=== PATIENT | male | born 1965 | race Caucasian/White ===

== ENCOUNTER 2017-01-22 13:18 | Inpatient (IN) | payer SELFPAY ==
[2017-01-22] VITALS (15 sets, daily range): BP systolic 140–212; BP diastolic 67–117; PULSE 70–99; RESP 13–18; TEMP 97.8–98.5; O2SAT 93–100
[~2017-01-22] VITALS: Ht 180.3 cm; Wt 89.0 kg
[2017-01-22 13:58] LABS: AUTOMATED NEUTROPHIL # 9.2 TH/MM3 (1.8-7.7); BASOPHIL # 0.1 TH/MM3 (0-0.2); BASOPHIL % 0.5 % (0.0-2.0); HEMATOCRIT 49.2 % (39.0-51.0); LYMPH % 12.9 % (9.0-44.0); LYMPHOCYTE # 1.4 TH/MM3 (1.0-4.8); MEAN CELL VOLUME 92.4 FL (80.0-100.0); MEAN CORPUSCULAR HEMOGLOBIN 30.9 PG (27.0-34.0); MEAN CORPUSCULAR HGB CONC 33.5 % (32.0-36.0); MONO % 3.4 % (0.0-8.0); NEUT % 83.2 % (16.0-70.0); PLATELET COUNT 220 TH/MM3 (150-450); RED BLOOD COUNT 5.32 MIL/MM3 (4.50-5.90); RED CELL DISTRIBUTION WIDTH 12.9 % (11.6-17.2); WHITE BLOOD COUNT 11.1 TH/MM3 (4.0-11.0)
[2017-01-22 14:03] LABS: HEMO FLAGS DIFF FINAL
[2017-01-22 14:13] LABS: POTASSIUM 3.3 MEQ/L (3.5-5.1)
[2017-01-22] MEDS ORDERED: PROCHLORPERAZINE INJ 10 MG/2 ML VIAL IV PUSH ONE (14:15)
[2017-01-22] MEDS ORDERED: ONDANSETRON HCL 4 MG/2 ML VIAL IV PUSH ONE (14:15)
--- NOTE | 2017-01-22 14:39 | PD ---
HPI Chief Complaint: Headache Time Seen by Provider: 13:37 Travel History International Travel<30 days: No Contact w/Intl Traveler<30days: No Traveled to known affect area: No History of Present Illness HPI 51yo M presents to the ED with c/o bilateral frontal headache and NBNB vomiting and nausea for 2 days. Pt was working out in the sun 2 days ago and then had bilateral neck pain radiating to base of head and now to frontal region. Denies any fever, rash, chest pain, sob, focal weakness or numbness, new visual changes. Also states his blood pressure is elevated and he does not have a PMD so is not on any medication. Denies any trauma. PFSH Past Medical History Medical History: Denies Significant Hx Diminished Hearing: No Tetanus Vaccination: Unknown Past Surgical History Surgical History: No Previous Surgery Social History Alcohol Use: Yes (SOC) Tobacco Use: No Substance Use: No Allergies-Medications (Allergen,Severity, Reaction): Coded Allergies: No Known Allergies (Unverified , 01/22/17) Reported Meds & Prescriptions Reported Meds & Active Scripts Active No Active Prescriptions or Reported Medications Review of Systems Except as stated in HPI: all other systems reviewed are Neg Physical Exam Narrative GENERAL: 51yo M in mild distress. SKIN: Focused skin assessment warm/dry. HEAD: Atraumatic. Normocephalic. EYES: Pupils equal and round at 4mm bilaterally. EOMI. No scleral icterus. No injection or drainage. ENT: No nasal bleeding or discharge. Mucous membranes pink and moist. NECK: Trachea midline. No JVD. +TTP bilateral paraspinal muscles. No nuchal rigidity. CARDIOVASCULAR: Regular rate and rhythm. No murmur appreciated. RESPIRATORY: No accessory muscle use. Clear to auscultation. Breath sounds equal bilaterally. GASTROINTESTINAL: Abdomen soft, non-tender, nondistended. MUSCULOSKELETAL: No obvious deformities. No clubbing. No cyanosis. No edema. NEUROLOGICAL: Awake and alert. No obvious cranial nerve deficits. Motor grossly within normal limits. Normal speech. PSYCHIATRIC: Appropriate mood and affect; insight and judgment normal. Data Data Last Documented VS Vital Signs Date Time Temp Pulse Resp B/P Pulse Ox O2 Delivery O2 Flow Rate FiO2 01/22/17 15:09 77 16 194/104 99 Room Air 01/22/17 13:48 98.0 Orders Complete Blood Count With Diff (01/22/17 13:50) Basic Metabolic Panel (Bmp) (01/22/17 13:50) Ondansetron Inj (Zofran Inj) (01/22/17 14:15) Prochlorperazine Inj (Compazine Inj) (01/22/17 14:15) Ct Brain W/O Iv Contrast(Rout) (01/22/17 ) Nicardipine Inj (Cardene Inj) (01/22/17 15:15) Sodium Chlor 0.9% 1000 Ml Inj (Ns 1000 M (01/22/17 15:15) Prothrombin Time / Inr (Pt) (01/22/17 15:06) Act Partial Throm Time (Ptt) (01/22/17 15:06) Type And Screen (01/22/17 15:06) Cta Brain W Iv Contrast W 3d (01/22/17 ) Cta Neck W Iv Contrast W 3d (01/22/17 ) Patient Transfer (01/22/17 15:20) Labs Laboratory Tests Test 01/22/17 01/22/17 13:50 15:20 White Blood Count 11.1 TH/MM3 Red Blood Count 5.32 MIL/MM3 Hemoglobin 16.5 GM/DL Hematocrit 49.2 % Mean Corpuscular Volume 92.4 FL Mean Corpuscular Hemoglobin 30.9 PG Mean Corpuscular Hemoglobin 33.5 % Concent Red Cell Distribution Width 12.9 % Platelet Count 220 TH/MM3 Mean Platelet Volume 8.8 FL Neutrophils (%) (Auto) 83.2 % Lymphocytes (%) (Auto) 12.9 % Monocytes (%) (Auto) 3.4 % Eosinophils (%) (Auto) 0.0 % Basophils (%) (Auto) 0.5 % Neutrophils # (Auto) 9.2 TH/MM3 Lymphocytes # (Auto) 1.4 TH/MM3 Monocytes # (Auto) 0.4 TH/MM3 Eosinophils # (Auto) 0.0 TH/MM3 Basophils # (Auto) 0.1 TH/MM3 CBC Comment DIFF FINAL Differential Comment Prothrombin Time 11.2 SEC Prothromb Time International 1.0 RATIO Ratio Activated Partial 25.2 SEC Thromboplast Time Sodium Level 140 MEQ/L Potassium Level 3.3 MEQ/L Chloride Level 106 MEQ/L Carbon Dioxide Level 24.0 MEQ/L Anion Gap 10 MEQ/L Blood Urea Nitrogen 13 MG/DL Creatinine 1.10 MG/DL Estimat Glomerular Filtration 71 ML/MIN Rate Random Glucose 137 MG/DL Calcium Level 9.0 MG/DL Blood Type O POSITIVE Antibody Screen NEGATIVE MDM Medical Decision Making Medical Screen Exam Complete: Yes Emergency Medical Condition: Yes Differential Diagnosis Tension headache vs. migraine headache vs. hypertensive emergency vs. SAH Narrative Course 51yo M with new onset headache and vomiting for 2 days. Pt given compazine and zofran. CT brain showed moderate subarachnoid hemorrhage, tiny intraventricular hemorrhage and slight ventriculomegaly. Possibility of basilar tip aneurysm should be excluded. I discussed with Dr. Antonio who recommends immediate transfer to the [facility] and that the CTA can be done at the [facility]. Labs reviewed, WBC 11.1. H/H stable. K mildly decreased at 3.3. Coagulations normal. Type and screen added. Pt placed on nicardipine drip since repeat BP was 194/104. Discussed with spray gunner Dr. Garcia who accepted the patient to his service. Pt is being emergently transferred to [facility]. Pt is still AAOx3 with no focal neurologic deficits. I discussed with Dr. Hernandez who will be the spray gunner taking care of pt and he wants to get the CTA here if [facility] is not here at this moment. [facility] pulled up as we were placing him on portable monitor to go to CT so decision was made to transfer pt to [place] immediately since EVAC is here instead of going to [place]. BP is now 178/98, goal of systolic <150. Pt is still AAOx3, no focal neurologic deficits. Headache has improved but still there. Critical Care Narrative Aggregate critical care time was 60 minutes. Time to perform other separately billable procedures was not included in the critical care time. My time did not include minutes spent treating any other patients simultaneously or on activities that did not directly contribute to the patient's treatment. The services I provided to this patient were to treat and/or prevent clinically significant deterioration that could result in: cardiovascular collapse or . I provided critical care services requiring my management, as noted below: Chart data review, documentation time, medication orders and management, vital sign assessments/reviewing monitor data, ordering and reviewing lab tests, ordering and interpreting/reviewing x-rays and diagnostic studies, care of the patient and discussion of the patient with the admitting physicians. Diagnosis Primary Impression: Subarachnoid hemorrhage Admitting Information Admitting Physician Requests: Admit Scripts No Active Prescriptions or Reported Meds Brittaney Mirza DO Jan 22, 2017 14:39
--- NOTE | 2017-01-22 14:49 | RADRPT ---
EXAM DATE/TIME: 01/22/2017 14:21 [facility] COMPARISON: No previous studies available for comparison. INDICATIONS : Headache, vomiting, high blood pressure. RADIATION DOSE: 66.49 CTDIvol (mGy) MEDICAL HISTORY : None SURGICAL HISTORY : None. ENCOUNTER: Initial ACUITY: 2 days PAIN SCALE: 7/10 LOCATION: Bilateral frontal TECHNIQUE: Multiple contiguous axial images were obtained of the head. Using automated exposure control and adj ustment of the mA and/or kV according to patient size, radiation dose was kept as low as reasonably a chievable to obtain optimal diagnostic quality images. DICOM format image data is available electro nically for review and comparison. FINDINGS: There is subarachnoid hemorrhage which extends from the pre-pontine cistern caudally to the leve l of the cervicomedullary junction and cephaladly to bilateral anterior temporal, adjacent to the ant erior falx and partially into the sylvian fissure on the right side. There is mild mucoperiosteal thi ckening within the right maxillary sinus. There are no signs of acute infarction. Possibility of aneu rysm involving the basilar tip should be excluded. The slight ventriculomegaly is identified. There i s also tiny hemorrhage within bilateral occipital horns. CONCLUSION: Moderate subarachnoid hemorrhage, tiny intraventricular hemorrhage and slight ventric ulomegaly. Possibility of basilar tip aneurysm should be excluded. María Fraser MD on January 22, 2017 at 14:44 Board Certified Radiologist. This report was verified electronically.
[2017-01-22] MEDS ORDERED: niCARdipine INJ 25 MG in SODIUM CHLOR 0.9% 250 ML INJ 250 ML IV ONE (15:15)
[2017-01-22] MEDS ORDERED: SODIUM CHLOR 0.9% 1000 ML INJ 1,000 ML IV ONE (15:15)
[2017-01-22] MEDS: SODIUM CHLOR 0.9% 1000 ML INJ 1,000 ML IV SCH (15:20)
[2017-01-22 15:26] LABS: APTT (PATIENT) 25.2 SEC (24.3-30.1); PROTHROMBIN TIME - PATIENT 11.2 SEC (9.8-11.6)
[2017-01-22] MEDS ORDERED: MAGNESIUM SULFATE INJ 4 GM in SODIUM CHLORIDE 0.9% INJ 92 ML IV PRN (15:30)
[2017-01-22] MEDS ORDERED: MAGNESIUM OXIDE 400 MG TAB PO PRN (15:30)
[2017-01-22] MEDS ORDERED: CHLORHEXIDINE GLUCONATE 2 % 1 PACK (2 CLOTHS) TOP PRN (15:30)
[2017-01-22] MEDS ORDERED: POTASSIUM CHLOR 40 MEQ PREMIX 100 ML IV PRN ×2 (15:30)
[2017-01-22] MEDS ORDERED: BISACODYL 10 MG SUPP RECTAL PRN (15:30)
[2017-01-22] MEDS ORDERED: POTASSIUM CHLOR 20 MEQ PREMIX 100 ML IV PRN (15:30)
[2017-01-22] MEDS ORDERED: RESP: ALBUTEROL 2.5 MG/IPRATROPIUM 0.5 MG NEB (PRN) INH (15:30)
[2017-01-22] MEDS ORDERED: POTASSIUM PHOSPHATE MONOBASIC 500 MG TAB PO PRN (15:30)
[2017-01-22] MEDS ORDERED: SODIUM CHLORIDE 0.9% FLUSH 10 ML FLUSH IV FLUSH PRN (15:30)
[2017-01-22] MEDS ORDERED: MAGNESIUM HYDROXIDE SUSP 30 ML CUP PO PRN (15:30)
[2017-01-22] MEDS ORDERED: SENNOSIDES 8.6 MG TAB PO PRN (15:30)
[2017-01-22] MEDS ORDERED: MISCELLANEOUS NURSING INFORMATION XX SCH (15:30)
[2017-01-22] MEDS ORDERED: POTASSIUM PHOSPHATE MONOBASIC 500 MG TAB PO/TUBE PRN (15:30)
[2017-01-22] MEDS ORDERED: ONDANSETRON HCL 4 MG/2 ML VIAL IV PRN (15:30)
[2017-01-22] MEDS ORDERED: SODIUM PHOSPHATE INJ 30 MMOL in SODIUM CHLOR 0.9% 250 ML INJ 240 ML IV PRN (15:30)
[2017-01-22] MEDS ORDERED: LACTULOSE SYRUP 20 GM/30 ML CUP PO PRN (15:30)
[2017-01-22] MEDS ORDERED: POTASSIUM PHOSPHATE INJ 30 MMOL in SODIUM CHLOR 0.9% 250 ML INJ 250 ML IV PRN (15:30)
[2017-01-22] MEDS ORDERED: MAGNESIUM SULFATE INJ 2 GM in SODIUM CHLORIDE 0.9% INJ 96 ML IV PRN (15:30)
[2017-01-22 15:39] LABS: BLOOD, URINE NEG (NEG); GLUCOSE,URINE NEG (NEG); KETONE, URINE 15 mg/dL (NEG); NITRITE,URINE NEG (NEG); PH, URINE 7.5 (5.0-8.5)
[2017-01-22 15:45] LABS: COMMENT (UR) CULT NOT INDICATED; CULTURE IF INDICATED CULT NOT INDICATED; SQUAMOUS EPITHELIAL CELL URINE 0-5 /hpf (0-5); URINE COLOR YELLOW (YELLW/STRAW)
[2017-01-22] MEDS ORDERED: levETIRAcetam 1000 MG INJ 100 ML IV ONE (15:45)
[2017-01-22] MEDS ORDERED: LABETALOL HCL 100 MG/20 ML VIAL IV PUSH STA (15:50)
[2017-01-22] MEDS ORDERED: LABETALOL HCL 100 MG/20 ML VIAL IV PUSH PRN (16:00)
[2017-01-22] MEDS ORDERED: IOHEXOL 350 MG/ML 10 ML VIAL (for RAD DIAG) IV ONE (17:19)
--- NOTE | 2017-01-22 17:34 | PD.CONS ---
HPI Service Critical Care Medicine Consult Requested By Primary Care Physician No Primary Care Physician History of Present Illness HPI 51yo M presents to the ED with c/o bilateral frontal headache and NBNB vomiting and nausea for 2 days. Pt was working out in the sun 2 days ago and then had bilateral neck pain radiating to base of head and now to frontal region. Denies any fever, rash, chest pain, sob, focal weakness or numbness, new visual changes. Also states his blood pressure is elevated and he does not have a PMD so is not on any medication. Denies any trauma. Patient was evaluated in the ER at [facility]. Head CT revealed moderate subarachnoid hemorrhage with minimal intraventricular blood. Dr. Antonio from neurosurgery was contacted by ER physician as well as critical care. Dr. Antonio asked ER to transfer patient to the main hospital to be admitted by critical care medicine and he would see patient as consult. Patient was accepted for admission by critical care service. Patient had been started on a Cardene drip at [facility] and was transferred to [facility] where I evaluated the patient immediately following his arrival. At the time of my evaluation patient stated his headache was down to around 3 out of 10 in intensity and was much better since his arrival to the ER. He denied any nausea denies any visual disturbance any focal weakness or paresthesias. Denied any speech disturbance. I had ordered labetalol 20 mg IV stat prior to patient's transfer from [facility] and then every 2 hourly when necessary to lower blood pressure. I spoke with Dr. Antonio following patient's arrival to [facility] and informed him that patient was headed for CTA for further evaluation of subarachnoid hemorrhage. History PFSH Past Medical History Medical History: HTN Diminished Hearing: No Tetanus Vaccination: Unknown Past Surgical History Surgical History: No Previous Surgery Social History Alcohol Use: Yes (SOC) Tobacco Use: No Substance Use: No Allergies-Medications Allergies-Medications (Allergen,Severity, Reaction): Coded Allergies: No Known Allergies (Unverified , 01/22/17) Reported Meds & Prescriptions Reported Meds & Active Scripts Active No Active Prescriptions or Reported Medications ROS Review of Systems Except as stated in HPI: all other systems reviewed are Neg Physical Exam Vital Signs Vital Signs Date Time Temp Pulse Resp B/P Pulse Ox O2 Delivery O2 Flow Rate FiO2 01/22/17 16:34 96 16 154/93 98 Room Air 01/22/17 16:21 93 149/93 01/22/17 16:17 90 16 161/96 99 Room Air 01/22/17 16:15 97 16 157/98 99 Room Air 01/22/17 16:03 95 16 176/96 95 Room Air 01/22/17 15:54 88 16 178/98 97 Room Air 01/22/17 15:45 97 16 178/102 100 Room Air 01/22/17 15:41 96 16 173/96 100 Room Air 01/22/17 15:28 84 16 212/111 98 Room Air 01/22/17 15:09 77 16 194/104 99 Room Air 01/22/17 13:48 98.0 99 16 162/117 99 01/22/17 13:22 98.0 99 16 162/117 99 Room Air Physical Exam Narrative GENERAL: 51yo M in mild distress. SKIN: Focused skin assessment warm/dry. HEAD: Atraumatic. Normocephalic. EYES: Pupils equal and round at 4mm bilaterally. EOMI. No scleral icterus. No injection or drainage. ENT: No nasal bleeding or discharge. Mucous membranes pink and moist. NECK: Trachea midline. No JVD. No nuchal rigidity. CARDIOVASCULAR: Regular rate and rhythm. No murmur appreciated. RESPIRATORY: No accessory muscle use. Clear to auscultation. Breath sounds equal bilaterally. GASTROINTESTINAL: Abdomen soft, non-tender, nondistended. MUSCULOSKELETAL: No obvious deformities. No clubbing. No cyanosis. No edema. NEUROLOGICAL: Awake and alert. Pupils seem enemas bilaterally reacting actively to light. No obvious cranial nerve deficits. Motor grossly within normal limits. Normal speech. PSYCHIATRIC: Appropriate mood and affect; insight and judgment normal. Laboratory Laboratory Tests Test 01/22/17 01/22/17 13:50 15:30 White Blood Count 11.1 Red Blood Count 5.32 Hemoglobin 16.5 Hematocrit 49.2 Mean Corpuscular Volume 92.4 Mean Corpuscular Hemoglobin 30.9 Mean Corpuscular Hemoglobin 33.5 Concent Red Cell Distribution Width 12.9 Platelet Count 220 Mean Platelet Volume 8.8 Neutrophils (%) (Auto) 83.2 Lymphocytes (%) (Auto) 12.9 Monocytes (%) (Auto) 3.4 Eosinophils (%) (Auto) 0.0 Basophils (%) (Auto) 0.5 Neutrophils # (Auto) 9.2 Lymphocytes # (Auto) 1.4 Monocytes # (Auto) 0.4 Eosinophils # (Auto) 0.0 Basophils # (Auto) 0.1 CBC Comment DIFF FINAL Differential Comment Prothrombin Time 11.2 Prothromb Time International 1.0 Ratio Activated Partial 25.2 Thromboplast Time Sodium Level 140 Potassium Level 3.3 Chloride Level 106 Carbon Dioxide Level 24.0 Anion Gap 10 Blood Urea Nitrogen 13 Creatinine 1.10 Estimat Glomerular Filtration 71 Rate Random Glucose 137 Calcium Level 9.0 Urine Color YELLOW Urine Turbidity CLEAR Urine pH 7.5 Urine Specific Sears 1.016 Urine Protein TRACE Urine Glucose (UA) NEG Urine Ketones 15 Urine Occult Blood NEG Urine Nitrite NEG Urine Bilirubin NEG Urine Leukocyte Esterase NEG Urine Squamous Epithelial 0-5 Cells Microscopic Urinalysis Comment CULT NOT INDICATED Result Diagram: 01/22/17 1350 01/22/17 1350 Imaging Last Impressions Head CT 01/22/17 0000 Signed Impressions: Service Date/Time: January 14:21 - CONCLUSION: Moderate subarachnoid hemorrhage, tiny intraventricular hemorrhage and slight ventriculomegaly. Possibility of basilar tip aneurysm should be excluded. María Fraser MD Assessment and Plan Assessment and Plan 51-year-old male with: Subarachnoid hemorrhage Hypertensive emergency Plan: Neuro: Follow neuro checks. Follow-up CTA brain to evaluate for aneurysm. Neurosurgery consulted and aware regarding patient's arrival to [facility]. Continue nimodipine. Titrate Cardene to maintain SBP less than 140 mmHg. neurosurgery to decide further management following review of CTA. Cardiovascular: IV hydration, nicardipine drip, labetalol when necessary to keep SBP less than 140 mmHg Pulmonary: Supplemental O2 as needed. GI/liver: Nothing by mouth until evaluated by neurosurgery. Renal/: IV hydration, strict intake output, monitor and replete electrolytes, follow BUN/creatinine ID: No indication for antibiotics at this time Heme: Follow CBC and coags. Endocrine: Watch for hyperglycemia, SSI for glycemic control if needed Prophylaxis: PPI/SCDs. No subcutaneous heparin in view of subarachnoid hemorrhage till cleared by neurosurgery. D/W Dr. Antonio, D/W Dr. Mirza, D/W BACKEND TESTER Condition critical. Patient at high risk for deterioration from subarachnoid hemorrhage. Time spent on critical care excluding procedures 50 minutes Marques Hernandez MD Jan 22, 2017 17:34
--- NOTE | 2017-01-22 17:42 | HHI.HP ---
HPI Service Critical Care Medicine Primary Care Physician No Primary Care Physician Admission Diagnosis Subarachonid hemorrhage Diagnosis: Travel History International Travel<30 Days: No Contact w/Intl Traveler <30 Da: No Traveled to Known Affected Are: No History of Present Illness Primary Care Physician No Primary Care Physician History of Present Illness HPI 51yo M presents to the ED with c/o bilateral frontal headache and NBNB vomiting and nausea for 2 days. Pt was working out in the sun 2 days ago and then had bilateral neck pain radiating to base of head and now to frontal region. Denies any fever, rash, chest pain, sob, focal weakness or numbness, new visual changes. Also states his blood pressure is elevated and he does not have a PMD so is not on any medication. Denies any trauma. Patient was evaluated in the ER at [place]. Head CT revealed moderate subarachnoid hemorrhage with minimal intraventricular blood. Dr. Antonio from neurosurgery was contacted by ER physician as well as critical care. Dr. Antonio asked ER to transfer patient to the main hospital to be admitted by critical care medicine and he would see patient as consult. Patient was accepted for admission by critical care service. Patient had been started on a Cardene drip at [place] ER and was transferred to [facility] where I evaluated the patient immediately following his arrival. At the time of my evaluation patient stated his headache was down to around 3 out of 10 in intensity and was much better since his arrival to the ER. He denied any nausea denies any visual disturbance any focal weakness or paresthesias. Denied any speech disturbance. I had ordered labetalol 20 mg IV stat prior to patient's transfer from [place] and then every 2 hourly when necessary to lower blood pressure. I spoke with Dr. Antonio following patient's arrival to [facility] and informed him that patient was headed for CTA for further evaluation of subarachnoid hemorrhage. History PFS Past Medical History Medical History: HTN Diminished Hearing: No Tetanus Vaccination: Unknown Past Surgical History Surgical History: No Previous Surgery Social History Alcohol Use: Yes (SOC) Tobacco Use: No Substance Use: No Allergies-Medications Allergies-Medications (Allergen,Severity, Reaction): Coded Allergies: No Known Allergies (Unverified , 01/22/17) Reported Meds & Prescriptions Reported Meds & Active Scripts Active No Active Prescriptions or Reported Medications ROS Review of Systems Except as stated in HPI: all other systems reviewed are Neg Physical Exam Physical Exam Vital Signs Vital Signs Date Time Temp Pulse Resp B/P Pulse Ox O2 Delivery O2 Flow Rate FiO2 01/22/17 16:34 96 16 154/93 98 Room Air 01/22/17 16:21 93 149/93 01/22/17 16:17 90 16 161/96 99 Room Air 01/22/17 16:15 97 16 157/98 99 Room Air 01/22/17 16:03 95 16 176/96 95 Room Air 01/22/17 15:54 88 16 178/98 97 Room Air 01/22/17 15:45 97 16 178/102 100 Room Air 01/22/17 15:41 96 16 173/96 100 Room Air 01/22/17 15:28 84 16 212/111 98 Room Air 01/22/17 15:09 77 16 194/104 99 Room Air 01/22/17 13:48 98.0 99 16 162/117 99 01/22/17 13:22 98.0 99 16 162/117 99 Room Air Physical Exam Narrative GENERAL: 51yo M in mild distress. SKIN: Focused skin assessment warm/dry. HEAD: Atraumatic. Normocephalic. EYES: Pupils equal and round at 4mm bilaterally. EOMI. No scleral icterus. No injection or drainage. ENT: No nasal bleeding or discharge. Mucous membranes pink and moist. NECK: Trachea midline. No JVD. No nuchal rigidity. CARDIOVASCULAR: Regular rate and rhythm. No murmur appreciated. RESPIRATORY: No accessory muscle use. Clear to auscultation. Breath sounds equal bilaterally. GASTROINTESTINAL: Abdomen soft, non-tender, nondistended. MUSCULOSKELETAL: No obvious deformities. No clubbing. No cyanosis. No edema. NEUROLOGICAL: Awake and alert. Pupils seem enemas bilaterally reacting actively to light. No obvious cranial nerve deficits. Motor grossly within normal limits. Normal speech. PSYCHIATRIC: Appropriate mood and affect; insight and judgment normal. Laboratory Laboratory Tests Test 01/22/17 01/22/17 13:50 15:30 White Blood Count 11.1 Red Blood Count 5.32 Hemoglobin 16.5 Hematocrit 49.2 Mean Corpuscular Volume 92.4 Mean Corpuscular Hemoglobin 30.9 Mean Corpuscular Hemoglobin 33.5 Concent Red Cell Distribution Width 12.9 Platelet Count 220 Mean Platelet Volume 8.8 Neutrophils (%) (Auto) 83.2 Lymphocytes (%) (Auto) 12.9 Monocytes (%) (Auto) 3.4 Eosinophils (%) (Auto) 0.0 Basophils (%) (Auto) 0.5 Neutrophils # (Auto) 9.2 Lymphocytes # (Auto) 1.4 Monocytes # (Auto) 0.4 Eosinophils # (Auto) 0.0 Basophils # (Auto) 0.1 CBC Comment DIFF FINAL Differential Comment Prothrombin Time 11.2 Prothromb Time International 1.0 Ratio Activated Partial 25.2 Thromboplast Time Sodium Level 140 Potassium Level 3.3 Chloride Level 106 Carbon Dioxide Level 24.0 Anion Gap 10 Blood Urea Nitrogen 13 Creatinine 1.10 Estimat Glomerular Filtration 71 Rate Random Glucose 137 Calcium Level 9.0 Urine Color YELLOW Urine Turbidity CLEAR Urine pH 7.5 Urine Specific Gooding 1.016 Urine Protein TRACE Urine Glucose (UA) NEG Urine Ketones 15 Urine Occult Blood NEG Urine Nitrite NEG Urine Bilirubin NEG Urine Leukocyte Esterase NEG Urine Squamous Epithelial 0-5 Cells Microscopic Urinalysis Comment CULT NOT INDICATED Result Diagram: 01/22/17 1350 01/22/17 1350 Imaging Last Impressions Head CT 01/22/17 0000 Signed Impressions: Service Date/Time: January 14:21 - CONCLUSION: Moderate subarachnoid hemorrhage, tiny intraventricular hemorrhage and slight ventriculomegaly. Possibility of basilar tip aneurysm should be excluded. María Fraser MD Assessment and Plan Assessment and Plan 51-year-old male with: Subarachnoid hemorrhage Hypertensive emergency Plan: Neuro: Follow neuro checks. Follow-up CTA brain to evaluate for aneurysm. Neurosurgery consulted and aware regarding patient's arrival to [facility]. Continue nimodipine. Titrate Cardene to maintain SBP less than 140 mmHg. neurosurgery to decide further management following review of CTA. Cardiovascular: IV hydration, nicardipine drip, labetalol when necessary to keep SBP less than 140 mmHg Pulmonary: Supplemental O2 as needed. GI/liver: Nothing by mouth until evaluated by neurosurgery. Renal/: IV hydration, strict intake output, monitor and replete electrolytes, follow BUN/creatinine ID: No indication for antibiotics at this time Heme: Follow CBC and coags. Endocrine: Watch for hyperglycemia, SSI for glycemic control if needed Prophylaxis: PPI/SCDs. No subcutaneous heparin in view of subarachnoid hemorrhage till cleared by neurosurgery. D/W Dr. Antonio, D/W Dr. Mirza, D/W CLIENT TECHNICAL SPECIALIST Condition critical. Patient at high risk for deterioration from subarachnoid hemorrhage. Time spent on critical care excluding procedures 50 minutes Marques Hernandez MD Jan 22, 2017 17:42
[2017-01-22] MEDS: niMODipine 30 MG CAP PO SCH (18:02)
[2017-01-22] MEDS: POTASSIUM CHLOR 20 MEQ PREMIX 100 ML IV PRN (18:02)
[2017-01-22] MEDS: niCARdipine INJ 25 MG in SODIUM CHLOR 0.9% 250 ML INJ 250 ML IV SCH ×3 (18:03→22:25)
--- NOTE | 2017-01-22 18:10 | RADRPT ---
EXAM DATE/TIME: 01/22/2017 17:02 This report includes an Addendum and supersedes previous reports for this exam. This report includes an Addendum and supersedes previous reports for this exam. [facility] COMPARISON: CT BRAIN W/O CONTRAST, January 22, 2017, 14:21. INDICATIONS : Evaluate for CVA. IV CONTRAST: 75 cc Omnipaque 350 (iohexol) IV RADIATION DOSE: 16.86 CTDIvol (mGy) ; Combined studies MEDICAL HISTORY : None SURGICAL HISTORY : None. ENCOUNTER: Initial ACUITY: 3 days PAIN SCALE: 6/10 LOCATION: Bilateral neck region. TECHNIQUE: Volumetric scanning was performed using a multi-row detector CT scanner. The data was post processed with a variety of visualization algorithms including full volume maximum intensity projection, multi -planar sliding thin slab reformation, curved planar reformation, and surface rendering techniques. Using automated exposure control and adjustment of the mA and/or kV according to patient size, radiat ion dose was kept as low as reasonably achievable to obtain optimal diagnostic quality images. DICO M format image data is available electronically for review and comparison. FINDINGS: There is excellent visualization of the major intracranial arteries out to the second-order branch ve ssels. There is no evidence for aneurysm, vessel truncation or stenosis, and no evidence for vascula r malformation. CONCLUSION: Unremarkable study without definite aneurysm. María Fraser MD on January 22, 2017 at 18:05 Board Certified Radiologist. This report was verified electronically. 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 This measures 3.0 x 2.7 mm.. Segundo Mcneil Jr., MD on January 23, 2017 at 10:02 Board Certified Radiologist. This report was verified electronically. ADDENDUM: There is a typographical error in the above addendum. 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 Segundo Mcneil Jr., MD on January 23, 2017 at 11:11 Board Certified Radiologist. This report was verified electronically.
[2017-01-22] MEDS: MORPHINE SULFATE 8 MG/ML INJ IV PUSH PRN ×2 (18:28→22:26)
--- NOTE | 2017-01-22 18:28 | RADRPT ---
EXAM DATE/TIME: 01/22/2017 17:02 [facility] COMPARISON: No previous studies available for comparison. INDICATIONS : Stiff neck. Evaluate for CVA IV CONTRAST: 75 cc Omnipaque 350 (iohexol) IV RADIATION DOSE: 16.58 CTDIvol (mGy) ; Combined studies MEDICAL HISTORY : None SURGICAL HISTORY : None. ENCOUNTER: Initial ACUITY: 3 days PAIN SCALE: 7/10 LOCATION: Bilateral cranial Elevated flow velocities and ICA/CCA ratios have been found to correlate with increased degrees of vessel stenosis, calculated as percentage of diameter relative to a normal segment of distal ICA/CCA. TECHNIQUE: Volumetric scanning was performed using a multirow detector CT scanner. The data was post processed with a variety of visualization algorithms including full-volume maximum intensity projection, multip lanar sliding thin-slab reformation, curved-planar reformation, and surface-rendering techniques. Us ing automated exposure control and adjustment of the mA and/or kV according to patient size, radiatio n dose was kept as low as reasonably achievable to obtain optimal diagnostic quality images. DICOM f ormat image data is available electronically for review and comparison. FINDINGS: AORTIC ARCH: There is a three-vessel origin of the great vessels from the aorta. No evidence of ostial narrowing. RIGHT CAROTID: The common carotid artery is intact. The carotid bulb has a normal configuration without ulceration o r narrowing. The internal carotid artery lumen is smooth without stenosis. The external carotid gregorio ry is intact. LEFT CAROTID: The common carotid artery is intact. The carotid bulb has a normal configuration without ulceration or narrowing. The internal carotid artery lumen is smooth without stenosis. The external carotid ar lacie is intact. VERTEBRALS: The vertebral arteries have a symmetric diameter. No stenotic lesions are seen. CONCLUSION: Normal examination. María Fraser MD on January 22, 2017 at 18:25 Board Certified Radiologist. This report was verified electronically.
--- NOTE | 2017-01-22 18:41 | PD.CONS ---
HPI Service NS Consult Requested By Dr Hernandez Reason for Consult subarachnpoid hemorrhage Primary Care Physician No Primary Care Physician History of Present Illness this is a 51yo male presents to the ED with c/o bilateral frontal headache and vomiting and nauseas for 2 days. He was working out in the sun 2 days ago and then had bilateral neck pain radiating to base of head and now to frontal region. Denies any fever, rash, chest pain,focal weakness or numbness His blood pressure is elevated. Denies any trauma. He was evaluated in the ER at [place]. Head CT revealed moderate subarachnoid hemorrhage with minimal intraventricular blood. neurosurgery consultation was requested Review of Systems Constitutional: DENIES: Diaphoretic episodes, Fatigue, Fever, Weight gain, Weight loss, Chills, Dizziness, Change in appetite, Night Sweats Endocrine: DENIES: Heat/cold intolerance, Polydipsia, Polyuria, Polyphagia Eyes: DENIES: Blurred vision, Diplopia, Eye inflammation, Eye pain, Vision loss , Photosensitivity, Double Vision Ears, nose, mouth, throat: DENIES: Tinnitus, Hearing loss, Vertigo, Nasal discharge, Oral lesions, Throat pain, Hoarseness, Ear Pain, Running Nose, Epistaxis, Sinus Pain, Toothache, Odynophagia Cardiovascular: DENIES: Chest pain, Palpitations, Syncope, Dyspnea on Exertion , PND, Lower Extremity Edema, Orthopnea, Claudication Gastrointestinal: COMPLAINS OF: Nausea, Vomiting, DENIES: Abdominal pain, Black stools, Bloody stools, Constipation, Diarrhea, Difficulty Swallowing, Anorexia Genitourinary: DENIES: Sexual dysfunction, Urinary frequency, Urinary incontinence, Urgency, Hematuria, Dysuria, Nocturia, Penile Discharge, Testicular Pain, Testicular Swelling Musculoskeletal: DENIES: Joint pain, Muscle aches, Stiffness, Joint Swelling, Back pain, Neck pain Integumentary: DENIES: Abnormal pigmentation, Nail changes, Pruritus, Rash Hematologic/lymphatic: DENIES: Bruising, Lymphadenopathy Neurologic: COMPLAINS OF: Headache, DENIES: Abnormal gait, Localized weakness , Paresthesias, Seizures, Speech Problems, Tremor, Poor Balance Psychiatric: DENIES: Anxiety, Confusion, Mood changes, Depression, Hallucinations, Agitation, Suicidal Ideation, Homicidal Ideation, Delusions Past Family Social History Allergies: Coded Allergies: No Known Allergies (Unverified , 01/22/17) Past Medical History Hypertension Past Surgical History no Reported Medications no Active Ordered Medications Current Medications Ondansetron HCl (Zofran Inj) 4 mg ONCE ONCE IV PUSH Last administered on 14:07; Start 01/22/17 at 14:15; Stop 01/22/17 at 14:16; Status DC Prochlorperazine Edisylate 10 mg 10 mg ONCE ONCE IV PUSH Last administered on 01/22/17 14:07; Start 01/22/17 at 14:15; Stop 01/22/17 at 14:16; Status DC Nicardipine HCl 25 mg/Sodium Chloride 260 ml @ 0 mls/hr TITRATE ONCE IV Last administered on 01/22/17 15:25; Start 01/22/17 at 15:15; Stop 01/22/17 at 15:16 ; Status DC Sodium Chloride 1,000 ml @ 999 mls/hr BOLUS ONCE IV Last administered on 01/22 15:10; Start 01/22/17 at 15:15; Stop 01/22/17 at 16:15; Status DC Levetriacetam (Keppra 1000 Mg Inj) 100 ml @ 400 mls/hr BOLUS ONCE IV Last administered on 01/22/17 15:49; Start 01/22/17 at 15:45; Stop 01/22/17 at 15:59 ; Status DC Magnesium Oxide 800 mg 800 mg UNSCH PRN PO For Magnesium 1.2 - 1.6 mg/dL; Start 01/22/17 at 15:30 Magnesium Sulfate 4 gm/Sodium Chloride 100 ml @ 50 mls/hr UNSCH PRN IV For Magnesium 0.9 - 1.1 mg/dL; Start 01/22/17 at 15:30 Magnesium Sulfate 2 gm/Sodium Chloride 100 ml @ 50 mls/hr UNSCH PRN IV For Magnesium 1.2 - 1.6 mg/dL; Start 01/22/17 at 15:30 Potassium Chloride 100 ml @ 50 mls/hr Q2H PRN IV For Potassium 2.8 - 3.2 mEq/L ; Start 01/22/17 at 15:30 Potassium Chloride 100 ml @ 50 mls/hr Q2H PRN IV For Potassium 3.3 - 3.5 mEq/ L Last administered on 01/22/17 18:02; Start 01/22/17 at 15:30 Potassium Chloride 100 ml @ 50 mls/hr Q2H PRN IV For Potassium 2.8 - 3.2 mEq/L ; Start 01/22/17 at 15:30 Potassium Chloride (KCl 40 Meq Premix Inj) 100 ml @ 25 mls/hr UNSCH PRN IV For Potassium 3.3 - 3.5 mEq/L; Start 01/22/17 at 15:30 Potassium Phosphate (K-Phos) 2,000 mg Q4H PRN PO For Phosphorus < 2.5 mg/dL; Start 01/22/17 at 15:30 Potassium Phosphate 2000 mg 2,000 mg UNSCH PRN PO/TUBE SEE LABEL COMMENTS; Start 01/22/17 at 15:30 Potassium Phosphate 30 mmol/ Sodium Chloride 260 ml @ 42 mls/hr UNSCH PRN IV SEE LABEL COMMENTS; Start 01/22/17 at 15:30 Sodium Phosphate 30 mmol/Sodium Chloride 250 ml @ 42 mls/hr UNSCH PRN IV For Phosphorus < 2.5 mg/dL; Start 01/22/17 at 15:30 Sodium Chloride (NS 1000 ml Inj) 1,000 ml @ 84 mls/hr [id number] IV Last administered on 01/22/17 15:20; Start 01/22/17 at 15:20 Sodium Chloride (NS Flush) 2 ml UNSCH PRN IV FLUSH FLUSH AFTER USING IV ACCESS ; Start 01/22/17 at 15:30 Sodium Chloride (NS Flush) 2 ml BID IV FLUSH ; Start 01/22/17 at 21:00 Pantoprazole Sodium (Protonix Inj) 40 mg DAILY IV ; Start 01/23/17 at 09:00 Ondansetron HCl (Zofran Inj) 4 mg Q6H PRN IV NAUSEA OR VOMITING Last administered on 01/22/17 18:03; Start 01/22/17 at 15:30 Albuterol/ Ipratropium (Duoneb Neb) 1 ampule Q2HR NEB PRN INH WHEEZING; Start 01/22/17 at 15:30 Miscellaneous Information 1 [id number] ; Start 01/22/17 at 15:30 Chlorhexidine Gluconate (Chlorhexidine 2% Cloth) 3 pack Taper DAILY@04 TOP ; Start 01/23/17 at 04:00; Stop 01/19/18 at 03:59 Chlorhexidine Gluconate (Chlorhexidine 2% Cloth) 3 pack UNSCH PRN TOP HYGIENIC CARE; Start 01/22/17 at 15:30 Senna/Docusate Sodium (Shanel-Colace) 1 tab BID PO ; Start 01/22/17 at 21:00 Magnesium Hydroxide (Milk Of Magnesia Liq) 30 ml Q12H PRN PO MILD - MODERATE CONSTIPATION; Start 01/22/17 at 15:30 Sennosides (Senokot) 17.2 mg Q12H PRN PO MODERATE - SEVERE CONSTIPATION; Start 01/22/17 at 15:30 Bisacodyl (Dulcolax Supp) 10 mg DAILY PRN RECTAL SEVERE CONSITIPATION; Start at 15:30 Lactulose 30 ml 30 ml DAILY PRN PO SEVERE CONSITIPATION; Start 01/22/17 at 15: 30 Nicardipine HCl/ Sodium Chloride (Cardene Inj/NS 250 ml Inj) 260 ml @ 0 mls/hr TITRATE IV Last administered on 01/22/17 18:03; Start 01/22/17 at 15:30 Nimodipine (Nimotop) 60 mg Q4HR PO Last administered on 01/22/17 18:02; Start 01/22/17 at 16:00 Labetalol HCl (Trandate Inj) 20 mg ONCE STAT IV PUSH Last administered on 01/22 16:09; Start 01/22/17 at 15:50; Stop 01/22/17 at 15:57; Status DC Labetalol HCl (Trandate Inj) 20 mg Q4H PRN IV PUSH SBP greater than 160mm Hg; Start 01/22/17 at 16:00 Iohexol (Omnipaque 350 Inj) 75 ml STK-MED ONCE IV Last administered on 17:19; Start 01/22/17 at 17:19; Stop 01/22/17 at 17:20; Status DC Morphine Sulfate (Morphine Inj) 4 mg Q4HR PRN IV PUSH pain scale 5-10 Last administered on 01/22/17 18:28; Start 01/22/17 at 18:00 Family History no hx of aneurysms Social History Alcohol Use: Yes Tobacco Use: No Substance Use: No Physical Exam Vital Signs Vital Signs Date Time Temp Pulse Resp B/P Pulse Ox O2 Delivery O2 Flow Rate FiO2 01/22/17 18:00 97.8 98 13 167/88 99 01/22/17 18:00 98 01/22/17 16:34 96 16 154/93 98 Room Air 01/22/17 16:21 93 149/93 01/22/17 16:17 90 16 161/96 99 Room Air 01/22/17 16:15 97 16 157/98 99 Room Air 01/22/17 16:03 95 16 176/96 95 Room Air 01/22/17 15:54 88 16 178/98 97 Room Air 01/22/17 15:45 97 16 178/102 100 Room Air 01/22/17 15:41 96 16 173/96 100 Room Air 01/22/17 15:28 84 16 212/111 98 Room Air 01/22/17 15:09 77 16 194/104 99 Room Air 01/22/17 13:48 98.0 99 16 162/117 99 01/22/17 13:22 98.0 99 16 162/117 99 Room Air Physical Exam The patient is alert, awake and oriented to time, place and person. Speech is fluent. Higher cognitive functions are normal. Cranial nerve examination demonstrates the pupils to be equal, round, and reactive to light. Extra-ocular movements are intact. Facial motor and sensory function are normal and symmetrical. Gross hearing is intact, bilaterally. The uvula is midline and elevates symmetrically with the soft palate. Sternocleidomastoid and trapezius muscles have normal and symmetrical strength. Other cranial nerves are intact. Neck is soft and supple. Cervical spine has a full range of motion in anterior flexion, extension, lateral bending, and rotation without pain. There is no tenderness to palpation to the spinous processes or paraspinal muscles. Muscle testing reveals normal bulk and tone overall without rigidity, spasticity , fasciculations, or atrophy. Muscle strength is 5/5 in all muscle groups of both upper extremities including deltoid, biceps, triceps, brachioradialis, wrist extension and gas line installer. In the lower extremities, strength is 5/5 in both iliopsoas, quadriceps, hamstrings, plantar flexion, dorsiflexion, and extensor hallicus longus. Sensory examination is intact to light touch and sharp/dull discrimination in both the upper and lower extremities, symmetrically. Deep tendon reflexes are 2+ and symmetrical in the biceps, triceps, and brachioradialis, bilaterally, in the upper extremities. In the lower extremities , the patellar and Achilles are 2+, bilaterally. There is a bilateral plantar flexion response. Hoffmanns sign is negative. There is no clonus or other abnormal reflexes noted. Cerebellar examination is intact to [id number] test, rapid rhythmic alternating motion. There is no dysmetria, dysdiadochokinesia, truncal ataxia, or tremor. Laboratory Laboratory Tests Test 01/22/17 01/22/17 01/22/17 01/22/17 13:50 15:20 15:30 17:15 White Blood Count 11.1 Red Blood Count 5.32 Hemoglobin 16.5 Hematocrit 49.2 Mean Corpuscular Volume 92.4 Mean Corpuscular Hemoglobin 30.9 Mean Corpuscular Hemoglobin 33.5 Concent Red Cell Distribution Width 12.9 Platelet Count 220 Mean Platelet Volume 8.8 Neutrophils (%) (Auto) 83.2 Lymphocytes (%) (Auto) 12.9 Monocytes (%) (Auto) 3.4 Eosinophils (%) (Auto) 0.0 Basophils (%) (Auto) 0.5 Neutrophils # (Auto) 9.2 Lymphocytes # (Auto) 1.4 Monocytes # (Auto) 0.4 Eosinophils # (Auto) 0.0 Basophils # (Auto) 0.1 CBC Comment DIFF FINAL Differential Comment Prothrombin Time 11.2 Prothromb Time International 1.0 Ratio Activated Partial 25.2 Thromboplast Time Sodium Level 140 Potassium Level 3.3 Chloride Level 106 Carbon Dioxide Level 24.0 Anion Gap 10 Blood Urea Nitrogen 13 Creatinine 1.10 Estimat Glomerular Filtration 71 Rate Random Glucose 137 Calcium Level 9.0 Blood Type O POSITIVE O POSITIVE Antibody Screen NEGATIVE Urine Color YELLOW Urine Turbidity CLEAR Urine pH 7.5 Urine Specific [place] 1.016 Urine Protein TRACE Urine Glucose (UA) NEG Urine Ketones 15 Urine Occult Blood NEG Urine Nitrite NEG Urine Bilirubin NEG Urine Leukocyte Esterase NEG Urine Squamous Epithelial 0-5 Cells Microscopic Urinalysis Comment CULT NOT INDICATED Result Diagram: 01/22/17 1350 01/22/17 1350 Imaging Last Impressions Head CTA 01/22/17 0000 Signed Impressions: Service Date/Time: January 17:02 - CONCLUSION: Unremarkable study without definite aneurysm. María Fraser MD Head CT 01/22/17 0000 Signed Impressions: Service Date/Time: January 14:21 - CONCLUSION: Moderate subarachnoid hemorrhage, tiny intraventricular hemorrhage and slight ventriculomegaly. Possibility of basilar tip aneurysm should be excluded. María Fraser MD Assessment and Plan Assessment and Plan [facility] Randall Franks grade 1, Esteban grade 3 Attending Statement Status post subarachnoid hemorrhage. Strict BP control. Neuro checks q 1 hrs. Nimotop. Recommend cerebral angiography Pulmonary. aggressive pulmonary toilette, nasotracheal suction, and breathing treatments with nebulizers. PT and OT evaluation Nutrition. Oral diet Renal. Gentle IV fluid resuscitation Avoid nephrotoxins, monitor closely urine output, BUN and creatinine Endocrine. Monitor serial Acu checks and SSI as needed in detail ID monitor for signs of infection Protonix for stress ulcer prophylaxis Christophe hose and SCD's for DVT prophylaxis Nick Antonio MD Jan 22, 2017 18:41
[2017-01-22] MEDS: SODIUM CHLORIDE 0.9% FLUSH 10 ML FLUSH IV FLUSH SCH (21:00)
[2017-01-23] VITALS (11 sets, daily range): BP systolic 115–148; BP diastolic 59–78; PULSE 68–95; RESP 13–20; TEMP 98–98.8; O2SAT 93–99
[2017-01-23] MEDS: niCARdipine INJ 25 MG in SODIUM CHLOR 0.9% 250 ML INJ 250 ML IV SCH ×6 (00:02→19:32)
[2017-01-23] MEDS: DOCUSATE SODIUM 50 MG/SENNA 8.6 MG TAB PO SCH ×2 (01:04→08:15)
[2017-01-23] MEDS: niMODipine 30 MG CAP PO SCH ×7 (01:04→19:27)
[2017-01-23] MEDS: MORPHINE SULFATE 8 MG/ML INJ IV PUSH PRN ×3 (03:00→18:45)
[2017-01-23] MEDS: SODIUM CHLOR 0.9% 1000 ML INJ 1,000 ML IV SCH ×2 (03:15→06:12)
[2017-01-23] MEDS ORDERED: CHLORHEXIDINE GLUCONATE 2 % 1 PACK (2 CLOTHS) TOP SCH (04:00)
[2017-01-23 06:46] LABS: HEMATOCRIT 45.2 % (39.0-51.0); MEAN CELL VOLUME 90.7 FL (80.0-100.0); MEAN CORPUSCULAR HEMOGLOBIN 31.9 PG (27.0-34.0); MEAN CORPUSCULAR HGB CONC 35.2 % (32.0-36.0); PLATELET COUNT 169 TH/MM3 (150-450); RED BLOOD COUNT 4.98 MIL/MM3 (4.50-5.90); REVIEW FLAG FINAL; WHITE BLOOD COUNT 13.9 TH/MM3 (4.0-11.0)
[2017-01-23 07:07] LABS: POTASSIUM 3.5 MEQ/L (3.5-5.1)
[2017-01-23] MEDS: POTASSIUM CHLOR 20 MEQ PREMIX 100 ML IV PRN (08:15)
[2017-01-23] MEDS: SODIUM CHLORIDE 0.9% FLUSH 10 ML FLUSH IV FLUSH SCH ×2 (08:15→19:28)
[2017-01-23] MEDS ORDERED: PANTOPRAZOLE SODIUM 40 MG VIAL IV SCH (09:00)
--- NOTE | 2017-01-23 09:28 | HHI.CCPN ---
Subjective Remarks/Hospital Course 01/22: 51yo M presents to the ED with c/o bilateral frontal headache and NBNB vomiting and nausea for 2 days. Pt was working out in the sun 2 days ago and then had bilateral neck pain radiating to base of head and now to frontal region. Denies any fever, rash, chest pain, sob, focal weakness or numbness, new visual changes. Also states his blood pressure is elevated and he does not have a PMD so is not on any medication. Denies any trauma. Patient was evaluated in the ER at [place]. Head CT revealed moderate subarachnoid hemorrhage with minimal intraventricular blood. Dr. Antonio from neurosurgery was contacted by ER physician as well as critical care. Dr. Antonio asked ER to transfer patient to the main hospital to be admitted by critical care medicine and he would see patient as consult. Patient was accepted for admission by critical care service. Patient had been started on a Cardene drip at [place] [facility] and was transferred to [facility] where I evaluated the patient immediately following his arrival. At the time of my evaluation patient stated his headache was down to around 3 out of 10 in intensity and was much better since his arrival to the ER. He denied any nausea denies any visual disturbance any focal weakness or paresthesias. Denied any speech disturbance. I had ordered labetalol 20 mg IV stat prior to patient's transfer from [place] and then every 2 hourly when necessary to lower blood pressure. I spoke with Dr. Antonio following patient's arrival to [facility] and informed him that patient was headed for CTA for further evaluation of subarachnoid hemorrhage. 01/23: Resting comfortably in bed. Complains of minimal headache about 3 out of 10 in intensity. Received morphine with good response. Has remained off nicardipine drip for a few hours and his blood pressure is in the 120 systolic range currently. Objective Vital Signs Date Time Temp Pulse Resp B/P Pulse Ox O2 Delivery O2 Flow Rate FiO2 01/23/17 07:00 99 Room Air 01/23/17 06:00 70 01/23/17 04:00 98.6 20 115/59 Intake and Output 01/22/17 01/22/17 01/23/17 08:00 16:00 00:00 Intake Total 1100 ml 689 ml Output Total 350 ml Balance 1100 ml 339 ml Result Diagram: 01/23/17 0556 01/23/17 0556 Imaging Last Impressions Head CT 01/22/17 0000 Signed Impressions: Service Date/Time: January 14:21 - CONCLUSION: Moderate subarachnoid hemorrhage, tiny intraventricular hemorrhage and slight ventriculomegaly. Possibility of basilar tip aneurysm should be excluded. María Fraser MD Objective Remarks Narrative GENERAL: 51yo M laying in bed in no acute distress. SKIN: Focused skin assessment warm/dry. HEAD: Atraumatic. Normocephalic. EYES: Pupils equal and round at 4mm bilaterally. EOMI. No scleral icterus. No injection or drainage. ENT: No nasal bleeding or discharge. Mucous membranes pink and moist. NECK: Trachea midline. No JVD. No nuchal rigidity. CARDIOVASCULAR: Regular rate and rhythm. No murmur appreciated. RESPIRATORY: No accessory muscle use. Clear to auscultation. Breath sounds equal bilaterally. GASTROINTESTINAL: Abdomen soft, non-tender, nondistended. MUSCULOSKELETAL: No obvious deformities. No clubbing. No cyanosis. No edema. NEUROLOGICAL: Awake and alert. Pupils seem enemas bilaterally reacting actively to light. No obvious cranial nerve deficits. Normal speech. Power 5 x 5 bilaterally in both upper and lower extremity's. Gait not tested as TCDs were in progress. PSYCHIATRIC: Appropriate mood and affect; insight and judgment normal. A/P Assessment and Plan 51-year-old male with: Subarachnoid hemorrhage Hypertensive emergency Plan: Neuro: Follow neuro checks. CTA brain/neck negative for aneurysm. Follow-up cerebral angiogram to evaluate for aneurysm. Neurosurgery consulted and following. Continue nimodipine. Titrate Cardene to maintain SBP less than 140 mmHg. neurosurgery to decide further management. Discussed with Dr. Antonio. Received 1 dose of Keppra yesterday. Defer anticonvulsant to neurosurgery Cardiovascular: IV hydration, nicardipine drip, labetalol when necessary to keep SBP less than 140 mmHg Pulmonary: Supplemental O2 as needed. GI/liver: Advance by mouth when okay with neurosurgery. Renal/: IV hydration, strict intake output, monitor and replete electrolytes, follow BUN/creatinine ID: No indication for antibiotics at this time Heme: Follow CBC and coags. Endocrine: Watch for hyperglycemia, SSI for glycemic control if needed Prophylaxis: PPI/SCDs. No subcutaneous heparin in view of subarachnoid hemorrhage till cleared by neurosurgery. D/W Dr. Antonio, D/W SNELLER HAND Condition critical. Patient at high risk for deterioration from subarachnoid hemorrhage. Time spent on critical care excluding procedures 30 minutes Marques Hernandez MD Jan 23, 2017 09:28
[2017-01-23] MEDS ORDERED: INFLUENZA VIRUS VACCINE (QUADRIVALENT) 0.5 ML SYR IM ONE (10:00)
[2017-01-23] MEDS ORDERED: VERAPAMIL HCL 5 MG/2 ML VIAL ONE (10:27)
[2017-01-23] MEDS ORDERED: fentaNYL CITRATE 250 MCG/5 ML AMP ONE (10:41)
[2017-01-23] MEDS ORDERED: ceFAZolin 2 GM PREMIX 50 ML ONE (11:01)
--- NOTE | 2017-01-23 12:37 | PD.RAD ---
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 Not an ideal candidate for non-stent assisted coiling. See PACS Report for procedural detail/treatment Antoine Sumner MD Jan 23, 2017 12:37
[2017-01-23] MEDS ORDERED: DO NOT ADM ANY ANTICOAGULANT DRUGS PRN (13:06)
[2017-01-23] MEDS ORDERED: *MEPERIDINE 25 MG INJ VIAL PERIprocedural Use ONLY ONE (13:20)
[2017-01-23] MEDS ORDERED: IODIXANOL 320 MG/ML 50 ML VIAL (for RAD SPEC) I-ARTERIAL ONE (13:30)
[2017-01-23] MEDS ORDERED: *LABETALOL HCL 100 MG/20 ML VIAL PERIprocedural Use ONLY ONE (13:36)
--- NOTE | 2017-01-23 16:37 | RADRPT ---
EXAM DATE/TIME: 01/23/2017 09:59 [facility] COMPARISON: CTA BRAIN W 3D RECON, January 22, 2017, 17:02. INDICATIONS : Patient is in need of a cerebral angiogram for evaluation of aneurysm. Patient has acute subarachnoid hemorrhage. Patient complains of a headache but otherwise is neurologically intact. MEDICAL HISTORY : History of HTN. SURGICAL HISTORY : N/A ENCOUNTER: Initial ACUITY: 2 days PAIN SCORE: 3/10 LOCATION: head FLUORO TIME: 2.8 minutes IMAGE SERIES: 4 ACCESS SITE: Right Femoral artery CONTRAST: 45 cc Visipaque (iodixanol) MEDICATION(S): 1.) 2 g cefazolin (Ancef) IV Anesthesia and pain control was provided by the Anesthesia department. PROCEDURE : 1. Ultrasound-guided puncture of the access site. 2. Anesthesia provided by the anesthesiology department. Please see their report separately.. 3. Angiography of the right internal carotid artery The risks, benefits and alternatives to the procedure were explained and verbal and written consent w as obtained. The site was prepped in sterile fashion. Full sterile technique was used, including ca p, mask, sterile gloves and gown and a large sterile sheet. Hand hygiene and 2% chlorhexidine and/or betadine/alcohol prep was utilized per protocol for cutaneous antisepsis. The skin and subcutaneous tissues were infiltrated with local anesthetic solution. With ultrasound and fluoroscopic guidance the right common femoral artery was punctured and a vascula r sheath was placed. The right internal carotid artery was selected and a cerebral angiogram performe d from this level. These images included 3-D spin as well as static planar images. 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 The aneurysm measures 4 x 3 x 2 m m and shows a small lobule extending from the dome. The dome to neck ratio is essentially one. It was felt this patient is not a good candidate for non-stent assisted coil embolization. I spoke with Dr. Antonio concerning the findings. The puncture site was closed with manual pressure and hemostasis was obtained. The patient tolerated the procedure well and there were no complications. Anesthesiology was present and supplied services. See their report separately. 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 The dome to neck ratio is not favorable for non-stent assisted emboliz ation. I spoke with Dr. Antonio. He requested consultation to Dr. Martinez in [place]. I have reached out to Dr. Martinez but have not been successful at reaching him to this point. Segundo Mcneil Jr., MD on January 23, 2017 at 16:12 Board Certified Radiologist. This report was verified electronically.
--- NOTE | 2017-01-23 17:18 | HHI.NSPN ---
(Monica Campbell) Note Status Status: Progress Note (Monica Campbell) Interval History Interval History This is a 51yo male presents to the ED with c/o bilateral frontal headache and vomiting and nauseas for 2 days. He was working out in the sun 2 days ago and then had bilateral neck pain radiating to base of head and now to frontal region. Denies any fever, rash, chest pain,focal weakness or numbness His blood pressure is elevated. Denies any trauma. He was evaluated in the ER at [place]. Head CT revealed moderate subarachnoid hemorrhage with minimal intraventricular blood. neurosurgery consultation was requested 01/23: pt seen and evaluated during am rounds, reports MARQUEZ's better this am. CTA Head was negative, awaiting cerebral angiography. denies focal weakness. (Monica Campbell) Labs, Micro, & Vital Signs Results Date Time Temp Pulse Resp B/P Pulse Ox O2 Delivery O2 Flow Rate FiO2 01/23/17 16:00 95 01/23/17 16:00 98.8 82 13 133/74 99 01/23/17 14:00 85 01/23/17 13:45 68 15 145/59 97 Nasal Cannula 4 01/23/17 13:30 87 15 172/63 96 Nasal Cannula 4 01/23/17 13:15 94 16 184/67 94 Nasal Cannula 4 01/23/17 13:09 98.1 90 16 93 Nasal Cannula 4 117/50 01/23/17 12:00 82 01/23/17 10:00 80 01/23/17 08:00 74 01/23/17 08:00 98.5 71 14 124/78 96 01/23/17 07:00 99 Room Air 01/23/17 06:00 70 01/23/17 04:00 98.6 68 20 115/59 93 01/23/17 04:00 68 01/23/17 02:00 70 01/23/17 00:00 70 01/23/17 00:00 98.0 70 20 121/67 94 01/22/17 22:00 70 01/22/17 20:00 72 01/22/17 20:00 98.5 72 18 140/67 93 01/22/17 20:00 Room Air 01/22/17 18:00 97.8 98 13 167/88 99 01/22/17 18:00 Room Air 01/22/17 18:00 98 01/23/17 06:59 Intake Total 3785 ml Output Total 700 ml Balance 3085 ml Constitutional Vital Signs Date Time Temp Pulse Resp B/P Pulse Ox O2 Delivery O2 Flow Rate FiO2 01/23/17 16:00 95 01/23/17 16:00 98.8 82 13 133/74 99 01/23/17 14:00 85 01/23/17 13:45 68 15 145/59 97 Nasal Cannula 4 01/23/17 13:30 87 15 172/63 96 Nasal Cannula 4 01/23/17 13:15 94 16 184/67 94 Nasal Cannula 4 01/23/17 13:09 98.1 90 16 93 Nasal Cannula 4 117/50 01/23/17 12:00 82 01/23/17 10:00 80 01/23/17 08:00 74 01/23/17 08:00 98.5 71 14 124/78 96 01/23/17 07:00 99 Room Air 01/23/17 06:00 70 01/23/17 04:00 98.6 68 20 115/59 93 01/23/17 04:00 68 01/23/17 02:00 70 01/23/17 00:00 70 01/23/17 00:00 98.0 70 20 121/67 94 01/22/17 22:00 70 01/22/17 20:00 72 01/22/17 20:00 98.5 72 18 140/67 93 01/22/17 20:00 Room Air 01/22/17 18:00 97.8 98 13 167/88 99 01/22/17 18:00 Room Air 01/22/17 18:00 98 01/23/17 06:59 Intake Total 3785 ml Output Total 700 ml Balance 3085 ml (Monica Campbell) Review of Systems/Exam Exam Mr. Black is alert, awake and oriented to time, place and person. Speech is fluent. Cranial nerve examination demonstrates the pupils to be equal, round, and reactive to light. Extra-ocular movements are intact. Facial motor and sensory function are normal and symmetrical. Gross hearing is intact, bilaterally. Muscle strength is 5/5 in all muscle groups of both upper and lower extremities. Sensory examination is intact to light touch in both the upper and lower extremities, symmetrically. bilateral plantar flexion response. There is no clonus or other abnormal reflexes noted. Cerebellar examination is intact to [id number] test. (Monica Campbell) Exam Mr. Black is alert, awake and oriented to time, place and person. Speech is fluent. Cranial nerve examination demonstrates the pupils to be equal, round, and reactive to light. Extra-ocular movements are intact. Facial motor and sensory function are normal and symmetrical. Gross hearing is intact, bilaterally. Muscle strength is 5/5 in all muscle groups of both upper and lower extremities. Sensory examination is intact to light touch in both the upper and lower extremities, symmetrically. bilateral plantar flexion response. There is no clonus or other abnormal reflexes noted. Cerebellar examination is intact (Nick Antonio MD) Medications Current Medications Current Medications Medications (Trade) Dose Ordered Sig/Marleni Route PRN Reason Start Time Stop Time Status Last Admin Dose Admin Magnesium Oxide 800 mg 800 mg UNSCH PRN PO For Magnesium 1.2 - 1.6 mg/dL 01/22/17 15:30 Magnesium Sulfate 4 gm/Sodium Chloride 100 ml @ 50 mls/hr UNSCH PRN IV For Magnesium 0.9 - 1.1 mg/dL 01/22/17 15:30 Magnesium Sulfate 2 gm/Sodium Chloride 100 ml @ 50 mls/hr UNSCH PRN IV For Magnesium 1.2 - 1.6 mg/dL 01/22/17 15:30 Potassium Chloride 100 ml @ 50 mls/hr Q2H PRN IV For Potassium 2.8 - 3.2 mEq/L 01/22/17 15:30 Potassium Chloride 100 ml @ 50 mls/hr Q2H PRN IV For Potassium 3.3 - 3.5 mEq/L 01/22/17 15:30 01/23/17 08:15 Potassium Chloride 100 ml @ 50 mls/hr Q2H PRN IV For Potassium 2.8 - 3.2 mEq/L 01/22/17 15:30 Potassium Chloride (KCl 40 Meq Premix Inj) 100 ml @ 25 mls/hr UNSCH PRN IV For Potassium 3.3 - 3.5 mEq/L 01/22/17 15:30 Potassium Phosphate (K-Phos) 2,000 mg Q4H PRN PO For Phosphorus < 2.5 mg/dL 01/22/17 15:30 Potassium Phosphate 2000 mg 2,000 mg UNSCH PRN PO/TUBE SEE LABEL COMMENTS 01/22/17 15:30 Potassium Phosphate 30 mmol/ Sodium Chloride 260 ml @ 42 mls/hr UNSCH PRN IV SEE LABEL COMMENTS 01/22/17 15:30 Sodium Phosphate 30 mmol/Sodium Chloride 250 ml @ 42 mls/hr UNSCH PRN IV For Phosphorus < 2.5 mg/dL 01/22/17 15:30 Sodium Chloride (NS 1000 ml Inj) 1,000 ml @ 84 mls/hr [id number] IV 01/22/17 15:20 01/23/17 06:12 Sodium Chloride (NS Flush) 2 ml UNSCH PRN IV FLUSH FLUSH AFTER USING IV ACCESS 01/22/17 15:30 Sodium Chloride (NS Flush) 2 ml BID IV FLUSH 01/22/17 21:00 01/22/17 21:00 Pantoprazole Sodium (Protonix Inj) 40 mg DAILY IV 01/23/17 09:00 01/23/17 08:15 Ondansetron HCl (Zofran Inj) 4 mg Q6H PRN IV NAUSEA OR VOMITING 01/22/17 15:30 01/22/17 18:03 Miscellaneous Information 1 [id number] XX 01/22/17 15:30 01/22/17 15:30 Chlorhexidine Gluconate (Chlorhexidine 2% Cloth) 3 pack Taper DAILY@04 TOP 01/23/17 04:00 01/19/18 03:59 01/23/17 04:00 Chlorhexidine Gluconate (Chlorhexidine 2% Cloth) 3 pack UNSCH PRN TOP HYGIENIC CARE 01/22/17 15:30 Senna/Docusate Sodium (Shanel-Colace) 1 tab BID PO 01/22/17 21:00 01/23/17 08:15 Magnesium Hydroxide (Milk Of Magnesia Liq) 30 ml Q12H PRN PO MILD - MODERATE CONSTIPATION 01/22/17 15:30 Sennosides (Senokot) 17.2 mg Q12H PRN PO MODERATE - SEVERE CONSTIPATION 01/22/17 15:30 Bisacodyl (Dulcolax Supp) 10 mg DAILY PRN RECTAL SEVERE CONSITIPATION 01/22/17 15:30 Lactulose 30 ml 30 ml DAILY PRN PO SEVERE CONSITIPATION 01/22/17 15:30 Nicardipine HCl/ Sodium Chloride (Cardene Inj/NS 250 ml Inj) 260 ml @ 0 mls/hr TITRATE IV 01/22/17 15:30 01/23/17 15:09 Nimodipine (Nimotop) 60 mg Q4HR PO 01/22/17 16:00 01/23/17 08:15 Labetalol HCl (Trandate Inj) 20 mg Q4H PRN IV PUSH SBP greater than 160mm Hg 01/22/17 16:00 Morphine Sulfate (Morphine Inj) 4 mg Q4HR PRN IV PUSH pain scale 5-10 01/22/17 18:00 01/23/17 15:09 Miscellaneous Information ALL NURSING DEPARTME... UNSCH PRN .XX SEE LABEL COMMENTS 01/23/17 13:06 01/24/17 13:05 (Monica Campbell) Medical Decision Making MDM Remarks 71 y/o male presented with c/o MARQUEZ's, CT Brain shows SAH with mild IVH, suspected for ruptured cerebral aneurysm, CTA Head negative for aneurysms or AVMs (Monica Campbell) Plan Plan Remarks awaiting cerebral angiogram today, cont neuro checks in ISC, critical care mgt, nonchemical dvt prophylaxis in view of ICH (Monica Campbell) Attending Statement Continue neuro checks in a serial fashion. Pulmonary. Continue aggressive pulmonary toilette, nasotracheal suction, and breathing treatments with nebulizers. PT and OT evaluation Nutrition. NPO after midnoght Renal. Continue monitor closely urine output, BUN and creatinine Endocrine. Continue Monitor serial Acu checks and SSI as needed in detail ID Continue monitor for signs of infection Continue Protonix for stress ulcer prophylaxis Continue Christophe hose and SCD's for DVT prophylaxis The exam, history, and the medical decision-making described in the above note were completed with the assistance of the mid-level provider. I reviewed and agree with the findings presented. I attest that I had a [id number] encounter with the patient on the same day, and personally performed and documented my assessment and findings in the medical record. (Nick Antonio MD) Monica Campbell Jan 23, 2017 17:18 Nick Antonio MD Jan 26, 2017 12:41
[2017-01-23] MEDS ORDERED: HYDROmorphone HCL PF 1 MG/ML VIAL IV PUSH ONE (20:15)
--- NOTE | 2017-01-24 07:19 | RADRPT ---
EXAM DATE/TIME: 01/23/2017 07:40 [facility] COMPARISON: CTA BRAIN W 3D RECON, January 22, 2017, 17:02. ANGIOGRAM, CEREBRAL WO ARCH, January 23, 2017, 9:59. INDICATIONS : Subarachnoid hemorrhage. MEDICAL HISTORY : Hypertension. SURGICAL HISTORY : Brain coil. ENCOUNTER: Initial ACUITY: 1 day PAIN SCORE: 5/10 LOCATION: Bilateral cranial Current Exam: Jan 23, 2017 Right: 1.4 Left: Unable to obtain. Right: 1.1 Left: Unable to obtain. FINDINGS: Examination performed at bedside. Real-time ultrasound with the assistance of color and spectral Dop pler was utilized to evaluate the intracerebral circulation. Time-averaged maximal velocities are ca lculated in cm/s. Limited exam obtained due to emergent transfer to angiographic suite for cerebral angiography with po ssible quality. Normal right-sided Lindegard M. Huber ratios with no findings to suggest significant vasospasm in the right cervical circulation. CONCLUSION: No significant right-sided cerebral vasospasm. Left cerebral circulation and not evaluated due to urgent transfer for cerebral angiography. Xavier Valencia MD on January 24, 2017 at 7:08 Board Certified Radiologist. This report was verified electronically.
== END 2017-01-23 20:30 | disposition short-term general hospital (02) | DRG 65 ==
LOC: PHED 13:18 → PHEDA 15:21 → N03B 16:35
PROVIDERS: ADMIT Internal Medicine Critical Care Medicine; ATTEND Internal Medicine Critical Care Medicine
PROC: B316YZZ Fluoroscopy of Right Internal Carotid Artery using Other Contrast (ICD-10-PCS; principal; 2017-01-22)
DX: I60.9 Nontraumatic subarachnoid hemorrhage, unspecified (principal); I16.1 Hypertensive emergency; I67.1 Cerebral aneurysm, nonruptured; I61.9 Nontraumatic intracerebral hemorrhage, unspecified; I10 Essential (primary) hypertension; K21.9 Gastro-esophageal reflux disease without esophagitis; Z87.891 Personal history of nicotine dependence
CPT/HCPCS: 36224; 70450; 70496; 70498; 76376; 76937; 80048; 81001; 85025; 85027; 85610; 85730; 86850; 86900; 86901; 87641; 93886; 96374; 96375; C1769; C1887; C1894; C9113; J0690; J0780; J1170; J1953; J2175; J2270; J2405; J3010; J3480; J7030; J7050; Q9967

== ENCOUNTER 2017-02-10 10:55 | Inpatient (IN) | payer SELFPAY ==
[~2017-02-10] VITALS: Ht 177.8 cm; Wt 79.5 kg
[2017-02-10 18:50] VITALS: BP 145/99; PULSE 107; RESP 18; TEMP 99.1; O2SAT 96
[2017-02-10] MEDS ORDERED: LACTULOSE SYRUP 20 GM/30 ML CUP PO PRN (19:15)
[2017-02-10] MEDS ORDERED: MISCELLANEOUS NURSING INFORMATION XX SCH (19:15)
[2017-02-10] MEDS ORDERED: RESP: ALBUTEROL 2.5 MG/3 ML NEB (PRN) INH (19:15)
[2017-02-10] MEDS ORDERED: BISACODYL 10 MG SUPP RECTAL PRN (19:15)
[2017-02-10] MEDS ORDERED: CHLORHEXIDINE GLUCONATE 2 % 1 PACK (2 CLOTHS) TOP PRN (19:15)
[2017-02-10] MEDS ORDERED: MAGNESIUM HYDROXIDE SUSP 30 ML CUP PO PRN (19:15)
[2017-02-10] MEDS ORDERED: SENNOSIDES 8.6 MG TAB PO PRN (19:15)
--- NOTE | 2017-02-10 19:15 | HHI.HP ---
HPI Service Critical Care Medicine Primary Care Physician Unknown Admission Diagnosis SAH Diagnosis: (1) Subarachnoid hemorrhage Diagnosis: Principal (2) Dysphagia Travel History International Travel<30 Days: No Contact w/Intl Traveler <30 Da: No Traveled to Known Affected Are: No History of Present Illness 51 yo WM with PMH of HTN, Tobacco abuse, who originally presented to [facility] [place] 01/22/17 with a ruptured 3 mm Acom aneurysm, Randall Franks grade 1-2. . Angiogram was performed but was not amenable to endovascular coil. Patient was transferred to [facility]. He underwent craniotomy with clipping of complex aneurysm and placement of lumbar drain 01/24/[address] Aviles. He developed diarrhea and C diff was positive 01/26. He underwent 10 day course of flagyl 500 q8 po, completed 02/06/17. He underwent tracheostomy 02/04/17 with 6.0 cuffed Shiley. He underwent PEG 02/03/[address] Machado and Ade. He is tolerating T piece. His sister is at bedside and states he was not using Passy-radha yet. He is now transferred back to [facility]. He is tachypneic with rhonchorous respirations, needs to be suctioned. Temp max 99.1. He is able to nod yes/no in response to questions and ROS is otherwise negative. Review of Systems ROS Limitations: Intubated (with trach) Past Family Social History Allergies: Coded Allergies: No Known Allergies (Unverified , 01/22/17) Past Medical History Hypertension Past Surgical History Inguinal Hernia repair Reported Medications Docusate 200 mg by mouth twice a day Famotidine 20 g by mouth twice a day Heparin 5000 units subcutaneous every 8 hours Insulin subcutaneous every 6 hours Keppra 5000 mg every 12 Flagyl 500 mg IV every 8 hours (completed). Nimodipine 60 mg's by mouth every 4 hours Osmolite 1.5 at 50 mg per Family History Maternal grandmother and maternal aunt from a ruptured cerebral aneurysm Social History Former history of smoking Drinks beer daily while working in [place]. Previously drank heavily in September 2016 after he was . Remote h/o prescription pill and cocaine use. Denies IV drug use. Lives in [facility] Accompanied at bedside by his sister. Physical Exam Vital Signs Vital Signs Date Time Temp Pulse Resp B/P Pulse Ox O2 Delivery O2 Flow Rate FiO2 02/10/17 18:50 99.1 107 18 145/99 96 Physical Exam GENERAL: Well-nourished, well-developed patient who is sitting up in bed, mildly tachypneic SKIN: Warm and dry. HEAD: Atraumatic. Normocephalic. EYES: Pupils equal and round. No scleral icterus. No injection or drainage. ENT: No nasal bleeding or discharge. Mucous membranes pink and moist. NECK: Trachea midline. 6.[address] with cuff inflated. CARDIOVASCULAR: Regular rate and rhythm. No murmurs rubs or gallops. RESPIRATORY: Tachypneic without accessory muscle use. Rhonchorous breath sounds bilaterally. No wheezes or Rales. GASTROINTESTINAL: Abdomen soft, non-tender, nondistended. PEG in place. : condom catheter has fallen off. MUSCULOSKELETAL: Extremities without clubbing, cyanosis, or edema. Splint in place L foot NEUROLOGICAL: Awake and alert. No obvious cranial nerve deficits. Follows commands with 4+/5 strength RUE, 5/5 LUE biceps/triceps. 5/5 BLE plantar flexion . Assessment and Plan Assessment and Plan NEURO: Ruptured Acom aneurysm 01/22 s/p craniotomy with clipping of complex aneurysm and placement of lumbar drain by Dr. Aviles. at [facility] Continue nimodipine 60 mg by mouth every 4 hours Has scheduled outpt F/u Dr. Aviles 03/24/17 at 1pm. RESP: Respiratory insuffiency S/p trach 6.0 Shiley placed 02/04. Trach care, suctioning. CXR now. CV: Monitor HR/BP. GI: Dysphagia Recent C. difficile diarrhea PEG placed 02/03 Initiate tube feeds with Jevity 1.5 at 50 mL per hour. Follow-up nutrition recommendations. Speech therapy to evaluate swallow. lansoprazole 30 per tube daily FEN/RENAL: Voiding at outside hospital. Monitor intake and output. Monitor electrolytes and replace as indicated. Check BMP now. ID: C. difficile diarrhea He developed diarrhea and C diff toxin B was positive 01/26. He underwent 10 day course of flagyl 500 q8 po, completed 02/06/17 HEME: Obtain CBC ENDO: Low-dose insulin sliding scale with bedside glucose every 6 hours. PROPH: SCDs for DVT prophylaxis. Heparin 5000 units subcutaneous every 8 hours will be continued. Previously started at outside hospital. ACCESS: PIV. No invasive lines. Patient is currently tachypneic in need of respiratory suctioning. Will ask RT to place in-line suction as it appears he will require frequent suctioning and close attention to trach care. Will followup CXR. Discussed with RN bedside. Vomited x1 NBNB following RN suctioning. Hold tube feeds for now. May require transfer to ICU if respiratory status worsens. Sister updated at bedside. Level III H and P Vaishnavi Lang MD Feb 10, 2017 19:15
--- NOTE | 2017-02-10 19:39 | RADRPT ---
EXAM DATE/TIME: 02/10/2017 19:32 [facility] COMPARISON: No previous studies available for comparison. INDICATIONS : Cough and congestion. MEDICAL HISTORY : Hypertension. SURGICAL HISTORY : None. ENCOUNTER: Subsequent ACUITY: 1 week PAIN SCORE: Non-responsive. LOCATION: Bilateral chest FINDINGS: There are some patchy infiltrates in the medial left lower lung without loss of delineation of the me dial left hemidiaphragm. Right lung is clear. The heart is normal size. Both hemidiaphragms are we ll delineated. Tracheostomy in place. CONCLUSION: Patchy left lower lobe infiltrates. Segundo Hogan MD on February 10, 2017 at 19:36 Board Certified Radiologist. This report was verified electronically.
[2017-02-10] MEDS ORDERED: GLUCAGON 1 MG/ML VIAL OTHER PRN (19:45)
[2017-02-10] MEDS ORDERED: DEXTROSE 50% IN WATER 50 ML VIAL(D50) IV PRN (19:45)
[2017-02-10 20:00] VITALS: BP 178/107; PULSE 133; RESP 22; TEMP 100.1; O2SAT 93
[2017-02-10 20:10] VITALS: PULSE 129
[2017-02-10 20:30] VITALS: BP 175/110; PULSE 136; RESP 18; TEMP 99.2; O2SAT 98
[2017-02-10 20:50] VITALS: O2SAT 98
[2017-02-10] MEDS: INSULIN ASPART SUPPLEMENTAL SCALE SQ SCH (21:00)
[2017-02-10] MEDS ORDERED: hydrALAZINE HCL 20 MG/ML VIAL IV PUSH PRN (21:15)
[2017-02-10] MEDS ORDERED: LABETALOL HCL 100 MG/20 ML VIAL IV PUSH PRN (21:15)
[2017-02-10 21:23] LABS: AUTOMATED NEUTROPHIL # 13.7 TH/MM3 (1.8-7.7); BASOPHIL # 0.2 TH/MM3 (0-0.2); EOSINOPHIL % 0.1 % (0.0-4.0); HEMO FLAGS DIFF FINAL; LYMPH % 4.5 % (9.0-44.0); LYMPHOCYTE # 0.7 TH/MM3 (1.0-4.8); MEAN CELL VOLUME 93.9 FL (80.0-100.0); MEAN CORPUSCULAR HEMOGLOBIN 30.8 PG (27.0-34.0); MEAN CORPUSCULAR HGB CONC 32.8 % (32.0-36.0); MONO % 5.2 % (0.0-8.0); NEUT % 89.2 % (16.0-70.0); PLATELET COUNT 347 TH/MM3 (150-450); RED BLOOD COUNT 4.37 MIL/MM3 (4.50-5.90); RED CELL DISTRIBUTION WIDTH 13.3 % (11.6-17.2); WHITE BLOOD COUNT 15.3 TH/MM3 (4.0-11.0)
[2017-02-10] MEDS: niMODipine 30 MG CAP PEG SCH (21:27)
[2017-02-10] MEDS: ONDANSETRON HCL 4 MG/2 ML VIAL IV PRN (21:28)
[2017-02-10] MEDS: HEPARIN SODIUM - SQ 10,000 UNITS/ML VIAL SQ SCH (21:28)
[2017-02-10] MEDS: DOCUSATE SODIUM 50 MG/SENNA 8.6 MG TAB PO SCH ×2 (21:29→21:32)
[2017-02-10] MEDS: SODIUM CHLORIDE 0.9% FLUSH 10 ML FLUSH IV FLUSH SCH (21:29)
[2017-02-10 21:51] LABS: AST (GOT) 9 U/L (15-37); BLOOD UREA NITROGEN 26 MG/DL (7-18); CHLORIDE 112 MEQ/L (98-107); GLOMERULAR FILTRATION RATE 76 ML/MIN (>89); MAGNESIUM 2.3 MG/DL (1.5-2.5); SODIUM (NA) 147 MEQ/L (136-145)
[2017-02-10 21:52] LABS: ALT (GPT) 13 U/L (12-78)
[2017-02-10 21:54] LABS: ALKALINE PHOSPHATASE 29 U/L (45-117); ANION GAP 11 MEQ/L (5-15); BICARBONATE 24.2 MEQ/L (21.0-32.0); TOTAL BILIRUBIN ADULT 0.5 MG/DL (0.2-1.0)
[2017-02-10 22:58] VITALS: BP 135/95; PULSE 123; RESP 18; TEMP 99; O2SAT 95
[2017-02-11] VITALS (11 sets, daily range): BP systolic 132–187; BP diastolic 86–105; PULSE 97–126; RESP 18–22; TEMP 97.7–99.8; O2SAT 91–98
[2017-02-11] MEDS: niMODipine 30 MG CAP PEG SCH ×6 (02:50→22:14)
[2017-02-11] MEDS: ONDANSETRON HCL 4 MG/2 ML VIAL IV PRN (02:51)
[2017-02-11] MEDS: PANTOPRAZOLE SODIUM 40 MG VIAL IV PUSH SCH ×2 (02:51→15:49)
[2017-02-11] MEDS: INSULIN ASPART SUPPLEMENTAL SCALE SQ SCH ×4 (03:12→21:00)
[2017-02-11] MEDS: CHLORHEXIDINE GLUCONATE 2 % 1 PACK (2 CLOTHS) TOP SCH (04:00)
[2017-02-11] MEDS: RESP: ALBUTEROL 2.5 MG/IPRATROPIUM 0.5 MG NEB (SCH) INH ×4 (04:09→21:45)
[2017-02-11 04:55] LABS: AUTOMATED NEUTROPHIL # 12.1 TH/MM3 (1.8-7.7); BASOPHIL # 0.1 TH/MM3 (0-0.2); BASOPHIL % 0.9 % (0.0-2.0); EOSINOPHIL % 0.1 % (0.0-4.0); HEMATOCRIT 39.3 % (39.0-51.0); HEMO FLAGS DIFF FINAL; LYMPH % 8.3 % (9.0-44.0); LYMPHOCYTE # 1.2 TH/MM3 (1.0-4.8); MEAN CELL VOLUME 92.7 FL (80.0-100.0); MEAN CORPUSCULAR HEMOGLOBIN 31.7 PG (27.0-34.0); MEAN CORPUSCULAR HGB CONC 34.2 % (32.0-36.0); MONO % 6.4 % (0.0-8.0); NEUT % 84.3 % (16.0-70.0); PLATELET COUNT 346 TH/MM3 (150-450); RED BLOOD COUNT 4.24 MIL/MM3 (4.50-5.90); RED CELL DISTRIBUTION WIDTH 13.4 % (11.6-17.2); WHITE BLOOD COUNT 14.3 TH/MM3 (4.0-11.0)
[2017-02-11 05:17] LABS: ANION GAP 9 MEQ/L (5-15); AST (GOT) 11 U/L (15-37); BICARBONATE 22.8 MEQ/L (21.0-32.0); BLOOD UREA NITROGEN 27 MG/DL (7-18); CHLORIDE 115 MEQ/L (98-107); GLOMERULAR FILTRATION RATE 82 ML/MIN (>89); MAGNESIUM 2.3 MG/DL (1.5-2.5); POTASSIUM 4.1 MEQ/L (3.5-5.1); SODIUM (NA) 147 MEQ/L (136-145)
[2017-02-11 05:18] LABS: ALT (GPT) 12 U/L (12-78)
[2017-02-11 05:20] LABS: ALKALINE PHOSPHATASE 29 U/L (45-117); TOTAL BILIRUBIN ADULT 0.5 MG/DL (0.2-1.0)
[2017-02-11] MEDS ORDERED: METOCLOPRAMIDE HCL 10 MG/2 ML VIAL IM SCH (06:00)
[2017-02-11] MEDS: HEPARIN SODIUM - SQ 10,000 UNITS/ML VIAL SQ SCH ×3 (06:00→22:12)
--- NOTE | 2017-02-11 07:10 | RADRPT ---
EXAM DATE/TIME: 02/11/2017 06:19 [facility] COMPARISON: No previous studies available for comparison. INDICATIONS : Vomiting. MEDICAL HISTORY : Hypertension. SURGICAL HISTORY : None. ENCOUNTER: Initial ACUITY: 1 day PAIN SCORE: Non-responsive. LOCATION: Bilateral abdomen FINDINGS: Supine view of the abdomen was performed. There is tubing overlying the region of the stomach consis tent with a PEG tube. The abdominal bowel gas pattern is normal. There is a small amount of oral cont rast identified within the colon. No abnormal masses, calcifications, or organomegaly is seen. The o sseous structures are unremarkable. CONCLUSION: No acute disease. Krystyna Kolhi MD on February 11, 2017 at 7:08 Board Certified Radiologist. This report was verified electronically.
[2017-02-11] MEDS: LACTOBACILLUS ACIDOPHILUS 1 GM PACKET PEG SCH ×3 (09:00→17:49)
[2017-02-11] MEDS ORDERED: LANSOPRAZOLE SOLUTAB 30 MG TAB G-TUBE SCH (09:00)
[2017-02-11] MEDS: SODIUM CHLORIDE 0.9% FLUSH 10 ML FLUSH IV FLUSH SCH ×2 (09:00→21:00)
--- NOTE | 2017-02-11 09:56 | HHI.CCPN ---
Subjective Remarks/Hospital Course 51 yo WM with PMH of HTN, Tobacco abuse, who originally presented to [facility] [place] 01/22/17 with a ruptured 3 mm Acom aneurysm, Randall Franks grade 1-2. . Angiogram was performed but was not amenable to endovascular coil. Patient was transferred to [facility]. He underwent craniotomy with clipping of complex aneurysm and placement of lumbar drain 01/24/[address] Aviles. He developed diarrhea and C diff was positive 01/26. He underwent 10 day course of flagyl 500 q8 po, completed 02/06/17. He underwent tracheostomy 02/04/17 with 6.0 cuffed Shiley. He underwent PEG 02/03/[address] Machado and Ade. He is tolerating T piece. His sister is at bedside and states he was not using Passy-radha yet. He is now transferred back to [facility]. He is tachypneic with rhonchorous respirations, needs to be suctioned. Temp max 99.1. He is able to nod yes/no in response to questions and ROS is otherwise negative. Subjective: 02/11 RN reports there was some bleeding at the trach overnight. Unclear if this was in the trach tube or around the trach. There is some dried blood around the trach near a prior stay suture, however no active bleeding. There are yellow secretions suctioned from the trach with no blood there. He is coughing a lot. CXR has left lower lobe opacity. He has low-grade temperature elevation 100.1 . Vomited overnight with some coffee-ground appearance. Hemoglobin is stable at 13.5. Of note his hemoglobin at outside hospital was 13.7 on 02/09. He has fecal collection system in place with brown stool, no melena. KUB, LFTs , lipase are all unremarkable. Objective Vital Signs Date Time Temp Pulse Resp B/P Pulse Ox O2 Delivery O2 Flow Rate FiO2 02/11/17 08:12 99.1 104 18 142/95 95 02/11/17 04:10 T-piece 6.00 28 Intake and Output 02/10/17 02/10/17 02/11/17 08:00 16:00 00:00 Output Total 300 ml Balance -300 ml Result Diagram: 02/11/17 0446 02/11/17 0446 Objective Remarks GENERAL: Well-nourished, well-developed patient who is sitting up in bed, mildly tachypneic SKIN: Warm and dry. Scab overlying right scalp. HEAD: Atraumatic. Normocephalic. EYES: Pupils equal and round. No scleral icterus. No injection or drainage. ENT: No nasal bleeding or discharge. Mucous membranes pink and moist. NECK: Trachea midline. 6.[address] with cuff inflated. there is no blood in the trach. There is some dried scab around the trach and near what appears was a stay suture on the left. CARDIOVASCULAR: Tachycardic, regular. . No murmurs rubs or gallops. RESPIRATORY: Tachypneic, coughing repeatedly. Suctioned white/yellow secretions. Rhonchorous breath sounds bilaterally. No wheezes or Rales. GASTROINTESTINAL: Abdomen soft, non-tender, nondistended. PEG in place. : condom catheter has fallen off. MUSCULOSKELETAL: Extremities without clubbing, cyanosis, or edema. Splint in place L foot NEUROLOGICAL: Awake and alert. No obvious cranial nerve deficits. Follows commands with 4+/5 strength RUE, 5/5 LUE biceps/triceps. 5/5 BLE plantar flexion . A/P Assessment and Plan NEURO: Ruptured Acom aneurysm 01/22 s/p craniotomy with clipping of complex aneurysm and placement of lumbar drain by Dr. Aviles. at [facility] Continue nimodipine 60 mg by mouth every 4 hours Has scheduled outpt F/u Dr. Aviles 03/24/17 at 1pm. RESP: Respiratory insuffiency S/p trach 6.0 Shiley placed 02/04. Trach care, suctioning. CXR 02/10 - ll opacity. Consult pulmonology for assistance with trach care management on the floor. CV: Tachycardia HTN Monitor HR/BP. If no e/o PE, likely initiate metoprolol via PEG. GI: Dysphagia Recent C. difficile diarrhea PEG placed 02/03 Vomited coffee ground 02/10 but there does not appear to be active GI bleeding. Will hold tube feeds for now and monitor. If remains stable, will likely resume Jevity and advance as tolerated. Added Reglan 10 mg IV q8. On protonix 40 IV q12. LFT, lipase, KUB unremarkable. Follow-up nutrition recommendations. Speech therapy to evaluate swallow. FEN/RENAL: Permissive hypernatremia Voiding at outside hospital. Monitor intake and output. Monitor electrolytes and replace as indicated. Followup BMP He may be slightly dry. We'll give NS 250 ML IV bolus prior treatment aspiration of contrast. Initiate NS with 20 mEq of KCl per liter at 84 L per hour. ID: C. difficile diarrhea He developed diarrhea and C diff toxin B was positive 01/26. He underwent 10 day course of flagyl 500 q8 po, completed 02/06/17 White blood count cell count is elevated at 15. At outside hospital was 9.3 on 02/09. There is mention on outside records that he had persistent L lower lobe infiltrate 02/02-02/04 but he clinically appeared stable with no leukocytosis, + low grade temps felt to be central, blood/CSF/urine/sputum cultures negative and so ID talent development consultant held off on abx due to dx of C diff. It appears he did not receive any antimicrobial therapy at outside hospital aside from Flagyl and perioperative antibiotic. He may need antimicrobial therapy for pneumonia now . He is tachycardic in 120s and is also at risk for PE given recent SAH. Will obtain CTPA and r/o PE. Evaluate lung parenchyma and consider antimicrobial therapy. Send blood and sputum cultures now. HEME: Obtain CBC ENDO: Low-dose insulin sliding scale with bedside glucose every 6 hours. PROPH: SCDs for DVT prophylaxis. Heparin 5000 units subcutaneous every 8 hours will be continued given that hgb is stable and he does not appear to have active bleeding. ACCESS: PIV. No invasive lines. Discussed management in detail with nurse on the floor. Level III followup. Vaishnavi Lang MD Feb 11, 2017 09:56
[2017-02-11] MEDS ORDERED: METOCLOPRAMIDE HCL 10 MG/2 ML VIAL IV PUSH SCH (10:00)
[2017-02-11] MEDS ORDERED: D5-1/2 NS + KCL 20 MEQ INJ 1,000 ML IV SCH (10:15)
[2017-02-11] MEDS ORDERED: SODIUM CHLOR 0.9% 250 ML INJ 250 ML IV ONE (10:30)
[2017-02-11] MEDS: NS + KCL 20 MEQ INJ 1,000 ML IV SCH (12:23)
[2017-02-11] MEDS ORDERED: IOHEXOL 350 MG/ML 10 ML VIAL (for RAD DIAG) IV ONE (15:11)
[2017-02-11] MEDS: METOCLOPRAMIDE HCL 10 MG/2 ML VIAL IV PUSH SCH ×2 (15:49→22:12)
--- NOTE | 2017-02-11 16:36 | RADRPT ---
EXAM DATE/TIME: 02/11/2017 15:04 [facility] COMPARISON: No previous studies available for comparison. INDICATIONS : Tachycardia; evaluate for embolism. IV CONTRAST: 71 cc Omnipaque 350 (iohexol) IV RADIATION DOSE: 23.09 CTDIvol (mGy) MEDICAL HISTORY : Hypertension. Aneurysm, intracranial. SURGICAL HISTORY : Craniotomy. ENCOUNTER: Initial ACUITY: 1 day PAIN SCALE: Non-responsive LOCATION: chest TECHNIQUE: Volumetric scanning of the chest was performed using a pulmonary embolism protocol MIP images were re constructed. Using automated exposure control and adjustment of the mA and/or kV according to patien t size, radiation dose was kept as low as reasonably achievable to obtain optimal diagnostic quality images. DICOM format image data is available electronically for review and comparison. Follow-up recommendations for incidentally detected pulmonary nodules are based at a minimum on nodul e size and patient risk factors according to Fleischner Society Guidelines. FINDINGS: PULMONARY ARTERIES: The pulmonary arteries are visualized to the very proximal segmental level without evidence for intra luminal filling defects. More distal segmental and subsegmental branches are incompletely opacified f or sufficient evaluation. LUNGS: Tracheostomy in place. Bilateral posterior lower lobe airspace consolidation. PLEURAE: Trace bilateral pleural effusions. MEDIASTINUM: Subcentimeter mediastinal nodes are likely reactive. Heart is unremarkable without significant perica rdial effusion. MUSCULOSKELETAL: No abnormal lytic or blastic bony lesions. MISCELLANEOUS: The visualized upper abdominal organs demonstrate no acute abnormality. CONCLUSION: 1. Limited examination with visualization of the pulmonary arteries to the very proximal segmental le navi. No evidence for pulmonary embolism to the very proximal segmental level. 2. Mild bilateral posterior lower lobe airspace consolidation and associated trace bilateral pleural effusions. Differential considerations include aspiration versus atelectasis. Antoine Sumner MD on February 11, 2017 at 16:29 Board Certified Radiologist. This report was verified electronically.
--- NOTE | 2017-02-11 20:42 | MB ---
cc: DINAH PARK DATE OF CONSULTATION 02/11/[address] Vaishnavi Lang REASON FOR CONSULTATION Trache management. HISTORY OF THE PRESENT ILLNESS Mr. Black is a 51-year-old male with history of nicotine use and alcohol use. The patient was initially admitted at [facility] on 01/22. 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 It was not amenable to clipping. The patient was sent to [facility]. He had a craniotomy and clipping of the complex aneurysm. He required lumbar drain, had respiratory failure, had PEG tube trache. He is sent over here for further management. Today the patient is on trache collar, has moderate amount of secretions around the trache and from the trachea. He is awake, follows simple commands. PAST MEDICAL HISTORY 1. History of recent clipping of aneurysm. 2. Tracheostomy tube. 3. PEG tube placement. 4. Hypertension. MEDICATIONS He is currently takin. Reglan 10 milligrams q.8h. 2. Potassium supplement. 3. Lactinex 1 gram three times a day. 4. Albuterol/Atrovent nebulizer treatment. 5. Heparin 5000 q.8 h. 6. Hydralazine 20 mg q.4 h p.r.n. 7. Insulin. 8. Nimodipine 60 milligrams q.4h via PEG tube. ALLERGIES NO KNOWN DRUG ALLERGIES. SOCIAL HISTORY He has a history of smoking, alcohol abuse and has a [employer] business. FAMILY HISTORY Noncontributory. REVIEW OF SYSTEMS Cannot assess. PHYSICAL EXAMINATION GENERAL: Shows a well built, well-nourished male on trache tube. VITAL SIGNS: His blood pressure 139/86, heart rate 100, respiratory rate 18, temperature 99.5. HEENT: Pupils are equal and reactive to light. NECK: Supple. He has a tracheostomy tube in place. Moderate secretions. CHEST: Air entry equal bilaterally. Has a few rhonchi. CARDIOVASCULAR: S1, S2 normal. ABDOMEN: Soft, nondistended. Bowel sounds are present. He has a PEG tube in place. EXTREMITIES: No edema. CENTRAL NERVOUS SYSTEM: The patient is alert. Follows simple commands. Moves all extremities. LABORATORY FINDINGS WBC count is 14.3, hemoglobin 13.5, hematocrit 39.3, MCV 92, platelet count 346. Sodium 147, potassium 4.1, chloride 115, CO2 22, BUN 27, creatinine 0.97. IMAGING His CTA shows no evidence of pulmonary embolism. Mild bilateral airspace consolidation and pleural effusion. IMPRESSION 1. Respiratory failure status post tracheostomy tube placement. 2. Small pleural effusion. 3. PEG tube placement. 4. History of aneurysm. He has clipping of the complex aneurysm and craniotomy. 5. C. difficile resolved. PLAN The patient will be maintained on trache collar. Continue aerosol treatment and supplement oxygen to keep the saturation greater than 92%. Once the trache secretions are decreased and he is able to manage, we will start capping the trache. Monitor his blood pressure. Continue present medication. Further treatment will depend on the course in the hospital. Thank you Dr. Lang for this consultation. MD JOEY Fernandes/TAHIR /6:54 PM /8:09 PM KENYATTA
[2017-02-12] VITALS (11 sets, daily range): BP systolic 127–167; BP diastolic 72–89; PULSE 84–109; RESP 16–20; TEMP 97–98.9; O2SAT 92–98
[2017-02-12] MEDS: niMODipine 30 MG CAP PEG SCH ×6 (02:09→22:22)
[2017-02-12] MEDS: SODIUM CHLORIDE 0.9% FLUSH 10 ML FLUSH IV FLUSH PRN ×2 (02:10→13:18)
[2017-02-12] MEDS: PANTOPRAZOLE SODIUM 40 MG VIAL IV PUSH SCH ×2 (02:10→15:41)
[2017-02-12] MEDS: INSULIN ASPART SUPPLEMENTAL SCALE SQ SCH ×4 (03:00→21:00)
[2017-02-12] MEDS: CHLORHEXIDINE GLUCONATE 2 % 1 PACK (2 CLOTHS) TOP SCH (04:00)
[2017-02-12] MEDS: NS + KCL 20 MEQ INJ 1,000 ML IV SCH ×3 (04:16→22:15)
[2017-02-12] MEDS: RESP: ALBUTEROL 2.5 MG/IPRATROPIUM 0.5 MG NEB (SCH) INH ×4 (04:21→20:52)
[2017-02-12] MEDS: METOCLOPRAMIDE HCL 10 MG/2 ML VIAL IV PUSH SCH ×3 (05:28→22:22)
[2017-02-12] MEDS: HEPARIN SODIUM - SQ 10,000 UNITS/ML VIAL SQ SCH ×3 (05:29→22:26)
[2017-02-12 08:06] LABS: AUTOMATED NEUTROPHIL # 5.9 TH/MM3 (1.8-7.7); BASOPHIL # 0.1 TH/MM3 (0-0.2); BASOPHIL % 0.8 % (0.0-2.0); EOSINOPHIL # 0.1 TH/MM3 (0-0.4); EOSINOPHIL % 1.1 % (0.0-4.0); HEMATOCRIT 36.1 % (39.0-51.0); HEMO FLAGS DIFF FINAL; LYMPH % 14.6 % (9.0-44.0); LYMPHOCYTE # 1.2 TH/MM3 (1.0-4.8); MEAN CELL VOLUME 94.5 FL (80.0-100.0); MEAN CORPUSCULAR HEMOGLOBIN 31.4 PG (27.0-34.0); MEAN CORPUSCULAR HGB CONC 33.2 % (32.0-36.0); MONO % 8.4 % (0.0-8.0); NEUT % 75.1 % (16.0-70.0); PLATELET COUNT 286 TH/MM3 (150-450); RED BLOOD COUNT 3.82 MIL/MM3 (4.50-5.90); RED CELL DISTRIBUTION WIDTH 13.6 % (11.6-17.2); WHITE BLOOD COUNT 7.9 TH/MM3 (4.0-11.0)
[2017-02-12 08:32] LABS: POTASSIUM 3.5 MEQ/L (3.5-5.1)
[2017-02-12] MEDS: SODIUM CHLORIDE 0.9% FLUSH 10 ML FLUSH IV FLUSH SCH ×2 (08:42→21:00)
[2017-02-12] MEDS: LACTOBACILLUS ACIDOPHILUS 1 GM PACKET PEG SCH ×3 (08:43→17:27)
[2017-02-12] MEDS: METOPROLOL TARTRATE 25 MG TAB PEG SCH ×2 (08:43→22:21)
[2017-02-12] MEDS: LACTOBACILLUS ACIDOPHILUS 1 GM PACKET OG-TUBE SCH (17:42)
[2017-02-12] MEDS: VANCOMYCIN 500 MG VIAL (FOR ORAL USE ONLY) PEG SCH ×2 (18:48→22:23)
--- NOTE | 2017-02-12 20:21 | HHI.PR ---
Subjective Remarks 51 YOWM with RF, trach, s/p aneurysem clipping at BS Awake, follows commands Objective Vital Signs Vital Signs Date Time Temp Pulse Resp B/P Pulse Ox O2 Delivery O2 Flow Rate FiO2 02/12/17 16:00 98.2 90 16 127/76 98 02/12/17 12:00 98.9 84 16 132/77 93 02/12/17 08:56 96 BRTH TX 7.00 02/12/17 08:56 92 T-piece 6.00 28 02/12/17 08:00 98.4 98 16 133/89 92 02/12/17 04:23 92 T-piece 6.00 28 02/12/17 04:00 97.2 102 20 144/79 97 02/12/17 01:25 98 T-piece 6.00 28 02/12/17 00:00 97.0 90 20 167/75 96 02/11/17 21:55 98 T-piece 6.00 28 I/O 02/11/17 02/11/17 02/11/17 02/12/17 02/12/17 02/12/17 07:00 15:00 23:00 07:00 15:00 23:00 Intake Total 450 ml 300 ml Output Total 500 ml 1150 ml Balance -500 ml -1150 ml 450 ml 300 ml Intake IV Total 300 ml Other 150 ml 300 ml Output Urine Total 650 ml Stool Total 500 ml 500 ml # Voids 3 # Bowel Movements 1 Result Diagram: 02/12/17 0740 02/12/17 0740 Objective Remarks GENERAL: WBWN male, NAD SKIN: Warm and dry. HEAD: Normocephalic. EYES: No scleral icterus. No injection or drainage. NECK: Supple, trachea midline. No JVD or lymphadenopathy. Has Trach CARDIOVASCULAR: Regular rate and rhythm without murmurs, gallops, or rubs. RESPIRATORY: Breath sounds equal bilaterally. No accessory muscle use. GASTROINTESTINAL: Abdomen soft, non-tender, nondistended. has PEG MUSCULOSKELETAL: No cyanosis, or edema. BACK: Nontender without obvious deformity. No CVA tenderness. A/P Assessment and Plan RF, S/P trach S/P Aneurysm clipping S/P PEG Pleural eff small PLAN: Cont Trach tube Suction prn Aerosol nebs TF PMV when secretions decrease Liam Jacobo MD Feb 12, 2017 20:21
--- NOTE | 2017-02-12 23:41 | HHI.CCPN ---
Subjective Remarks/Hospital Course Nursing reports that the patient is tolerating his tube feeds well and no diarrhea has been noted today fortunately. Respiratory therapy says that patient has been weaning successfully, most recent was at 28% FiO2. Patient himself is communicating with thumbs up and thumbs down, says that overall his breathing is a little better in that he is not having any substantial difficulty with his abdomen or tube feeds. Objective Vital Signs Date Time Temp Pulse Resp B/P Pulse Ox O2 Delivery O2 Flow Rate FiO2 02/12/17 20:57 96 T-piece 6.00 28 02/12/17 20:00 98.6 98 18 128/72 Intake and Output 02/11/17 02/11/17 02/12/17 08:00 16:00 00:00 Output Total 500 ml Balance -500 ml Result Diagram: 02/12/17 0740 02/12/17 0740 Objective Remarks GENERAL: Well-nourished, well-developed patient who is sitting up in bed, breathing comfortably SKIN: Warm and dry. Scab overlying right scalp. EYES: No scleral icterus. No injection or drainage. ENT: No nasal bleeding or discharge. Mucous membranes pink and moist. NECK: Trachea midline. -Cuff inflated and in place there is no blood in the trach. There is some dried scab around the trach and near what appears was a stay suture on the left. CARDIOVASCULAR: RRR. No murmurs rubs or gallops. RESPIRATORY: Mild tachypnea without accessory muscle use. Occasional rhochi. No wheezes or Rales. GASTROINTESTINAL: Abdomen soft, nondistended. PEG in place MUSCULOSKELETAL: Extremities without clubbing, cyanosis, or edema. Splint in place L foot NEUROLOGICAL: Awake and alert, makes eye contact, mouth words and nods to questioning. No facial droop nor slurred speech noted A/P Assessment and Plan NEURO: Ruptured Acom aneurysm 01/22 s/p craniotomy with clipping of complex aneurysm and placement of lumbar drain by Dr. Aviles. at [facility] Has scheduled outpt F/u Dr. Aviles 03/24/[address] Antonio is aware that patient has been transferred back but I feel there is no indication for formal neurosurgical consult at this point. PT/OT following. PT recommends acute rehab. RESP: Respiratory insuffiency S[facility] Trach care, suctioning. Pulmonology following, Dr Jacobo. CV: HTN Metoprolol 12.5 mg per tube every 12 hours. GI: Dysphagia C. difficile diarrhea PEG placed 02/03 - tolerating tube feeds well Speech therapy has stated the patient passed swallow study today, we'll be ready to try pured diet tomorrow once cuff has been deflated Continue Protonix, no signs of GI bleeding, diarrhea has resolved if not improved Reglan 10 mg IV q8. FEN/RENAL: Hypernatremia Suspect dehydration as main culprit, repeat labs tomorrow C. difficile diarrhea He developed diarrhea and C diff toxin B was positive 01/26. He underwent 10 day course of flagyl 500 q8 po, completed 02/06/17. He still has persistent diarrhea , 500 ml per day. Tube feeds were held x2 days while sorting out issues of vomiting and ?coffee ground emesis. continue vancomycin 125 per tube qid and likely complete additional 10-14 day course. White blood count cell count was elevated at 15 02/10. . At outside hospital was 9.3 on 02/09. There is mention on outside records that he had persistent L lower lobe infiltrate 02/02-02/04 but he clinically appeared stable with no leukocytosis , +low grade temps felt to be central, blood/CSF/urine/sputum cultures negative 01/23 and so ID oracle application consultant held off on abx due to dx of C diff. It appears he did not receive any antimicrobial therapy at outside hospital aside from Flagyl and perioperative antibiotic. CT PA was performed and there appears to be some mild aspiration in LLL which fits clinical picture because he had vomited upon arrival. There is also mild bilat atelectasis. His leukocytosis has resolved. I think the leukocytosis was secondary to aspiration. I am avoiding antibiotics for this because he is clinically improved (respiratory status much better over last 3 days) and unnecessary antimicrobial exposure could exacerbate C. difficile. Low-dose insulin sliding scale with bedside glucose every 6 hours. PROPH: SCDs for DVT prophylaxis. Heparin 5000 units subcutaneous every 8 hours will be continued given that hgb is stable and he does not appear to have active bleeding. Physician accidently entered this note, not my note, nothing for me to add to this note. Vaishnavi Lang MD Feb 12, 2017 23:41 Jose Duarte MD Feb 13, 2017 18:21
[2017-02-13] VITALS (10 sets, daily range): BP systolic 142–184; BP diastolic 86–103; PULSE 87–101; RESP 16–18; TEMP 97.5–98.6; O2SAT 93–97
[2017-02-13] MEDS: INSULIN ASPART SUPPLEMENTAL SCALE SQ SCH ×4 (03:00→20:46)
[2017-02-13] MEDS: CHLORHEXIDINE GLUCONATE 2 % 1 PACK (2 CLOTHS) TOP SCH (04:00)
[2017-02-13] MEDS: PANTOPRAZOLE SODIUM 40 MG VIAL IV PUSH SCH ×2 (04:42→14:02)
[2017-02-13] MEDS: METOCLOPRAMIDE HCL 10 MG/2 ML VIAL IV PUSH SCH ×3 (05:33→20:44)
[2017-02-13] MEDS: HEPARIN SODIUM - SQ 10,000 UNITS/ML VIAL SQ SCH ×3 (05:33→20:46)
[2017-02-13] MEDS: RESP: ALBUTEROL 2.5 MG/IPRATROPIUM 0.5 MG NEB (SCH) INH ×3 (08:08→20:15)
[2017-02-13] MEDS: SODIUM CHLORIDE 0.9% FLUSH 10 ML FLUSH IV FLUSH SCH ×2 (09:00→20:47)
[2017-02-13] MEDS: LACTOBACILLUS ACIDOPHILUS 1 GM PACKET OG-TUBE SCH ×3 (09:00→17:17)
[2017-02-13] MEDS: VANCOMYCIN 500 MG VIAL (FOR ORAL USE ONLY) PEG SCH ×4 (09:50→20:43)
[2017-02-13] MEDS: METOPROLOL TARTRATE 25 MG TAB PEG SCH ×2 (09:50→20:43)
[2017-02-13] MEDS: NS + KCL 20 MEQ INJ 1,000 ML IV SCH ×2 (09:51→20:46)
[2017-02-13 12:30] LABS: AUTOMATED NEUTROPHIL # 3.2 TH/MM3 (1.8-7.7); BASOPHIL # 0.1 TH/MM3 (0-0.2); BASOPHIL % 1.2 % (0.0-2.0); EOSINOPHIL # 0.2 TH/MM3 (0-0.4); EOSINOPHIL % 3.2 % (0.0-4.0); HEMATOCRIT 36.3 % (39.0-51.0); HEMO FLAGS DIFF FINAL; LYMPH % 18.4 % (9.0-44.0); LYMPHOCYTE # 0.9 TH/MM3 (1.0-4.8); MEAN CELL VOLUME 94.5 FL (80.0-100.0); MEAN CORPUSCULAR HEMOGLOBIN 30.6 PG (27.0-34.0); MEAN CORPUSCULAR HGB CONC 32.4 % (32.0-36.0); MONO % 8.9 % (0.0-8.0); NEUT % 68.3 % (16.0-70.0); PLATELET COUNT 247 TH/MM3 (150-450); RED BLOOD COUNT 3.84 MIL/MM3 (4.50-5.90); RED CELL DISTRIBUTION WIDTH 13.5 % (11.6-17.2); WHITE BLOOD COUNT 4.7 TH/MM3 (4.0-11.0)
[2017-02-13 12:52] LABS: BICARBONATE 22.4 MEQ/L (21.0-32.0); POTASSIUM 3.7 MEQ/L (3.5-5.1)
--- NOTE | 2017-02-13 17:45 | HHI.PR ---
Subjective Remarks 51 YOWM with RF, trach, s/p aneurysem clipping at BS Awake, follows commands no new complaint Objective Vital Signs Vital Signs Date Time Temp Pulse Resp B/P Pulse Ox O2 Delivery O2 Flow Rate FiO2 02/13/17 16:32 97 T-piece 5.00 28 02/13/17 16:32 97 T-piece 5.00 28 02/13/17 16:00 98.0 91 18 142/88 95 02/13/17 12:49 98.4 88 16 169/91 93 02/13/17 08:12 96 T-piece 28 02/13/17 08:00 98.4 92 16 157/95 93 02/13/17 07:00 91 02/13/17 04:00 97.5 92 18 184/103 95 02/13/17 00:00 98.6 87 18 149/86 97 02/12/17 20:57 96 T-piece 6.00 02/12/17 20:00 98.6 98 18 128/72 94 02/12/17 19:00 109 I/O 02/12/17 02/12/17 02/12/17 02/13/17 02/13/17 02/13/17 06:59 14:59 22:59 06:59 14:59 22:59 Intake Total 450 ml 300 ml Output Total 1150 ml 1000 ml 625 ml Balance -1150 ml 450 ml 300 ml -1000 ml -625 ml Intake IV Total 300 ml Other 150 ml 300 ml Output Urine Total 650 ml 1000 ml 625 ml Stool Total 500 ml # Voids 3 # Bowel Movements 1 0 Result Diagram: 02/13/17 1205 02/13/17 1205 Objective Remarks GENERAL: WBWN male, NAD SKIN: Warm and dry. HEAD: Normocephalic. EYES: No scleral icterus. No injection or drainage. NECK: Supple, trachea midline. No JVD or lymphadenopathy. Has Trach CARDIOVASCULAR: Regular rate and rhythm without murmurs, gallops, or rubs. RESPIRATORY: Breath sounds equal bilaterally. No accessory muscle use. GASTROINTESTINAL: Abdomen soft, non-tender, nondistended. has PEG MUSCULOSKELETAL: No cyanosis, or edema. BACK: Nontender without obvious deformity. No CVA tenderness. A/P Assessment and Plan RF, S/P trach S/P Aneurysm clipping S/P PEG Pleural eff small PLAN: Cont Trach tube Suction prn Aerosol nebs TF PMV when secretions decrease Stable pulm, available prn over weekend Liam Jacobo MD Feb 13, 2017 17:45
[2017-02-14] VITALS (13 sets, daily range): BP systolic 129–214; BP diastolic 72–96; PULSE 82–102; RESP 18–20; TEMP 98.2–99.9; O2SAT 93–98
[2017-02-14] MEDS: CHLORHEXIDINE GLUCONATE 2 % 1 PACK (2 CLOTHS) TOP SCH (03:12)
[2017-02-14] MEDS: INSULIN ASPART SUPPLEMENTAL SCALE SQ SCH ×4 (03:12→21:00)
[2017-02-14] MEDS: PANTOPRAZOLE SODIUM 40 MG VIAL IV PUSH SCH ×2 (03:12→17:01)
[2017-02-14] MEDS: RESP: ALBUTEROL 2.5 MG/IPRATROPIUM 0.5 MG NEB (SCH) INH ×4 (05:23→22:01)
[2017-02-14] MEDS: METOCLOPRAMIDE HCL 10 MG/2 ML VIAL IV PUSH SCH ×3 (06:31→22:00)
[2017-02-14] MEDS: HEPARIN SODIUM - SQ 10,000 UNITS/ML VIAL SQ SCH ×3 (06:31→22:55)
[2017-02-14] MEDS: SODIUM CHLORIDE 0.9% FLUSH 10 ML FLUSH IV FLUSH SCH ×2 (09:00→22:41)
[2017-02-14] MEDS: LACTOBACILLUS ACIDOPHILUS 1 GM PACKET OG-TUBE SCH ×3 (09:00→18:00)
[2017-02-14] MEDS: METOPROLOL TARTRATE 25 MG TAB PEG SCH ×2 (11:42→22:41)
[2017-02-14] MEDS: VANCOMYCIN 500 MG VIAL (FOR ORAL USE ONLY) PEG SCH ×4 (11:42→22:41)
[2017-02-14] MEDS: NS + KCL 20 MEQ INJ 1,000 ML IV SCH ×2 (11:49→21:55)
--- NOTE | 2017-02-14 16:25 | HHI.PR ---
Subjective Remarks Patient was seen on 02/13. Follow-up on multiple issues including respiratory insufficiency and tube feeds. Nursing says diarrhea has resolved Objective Vital Signs Date Time Temp Pulse Resp B/P Pulse Ox O2 Delivery O2 Flow Rate FiO2 02/14/17 12:09 98.2 85 20 129/72 93 02/14/17 09:47 96 T-piece 5.00 28 02/14/17 09:47 96 T-piece 5.00 28 02/14/17 08:25 98.9 94 20 138/89 94 02/14/17 05:34 90 02/14/17 05:25 98 T-piece 6.00 28 02/14/17 04:00 99.1 98 18 162/96 94 02/14/17 01:15 96 Trach Collar 6.00 28 02/14/17 00:00 99.1 102 18 169/93 93 02/13/17 20:00 98.3 101 18 161/96 95 02/13/17 19:00 87 02/13/17 16:32 97 T-piece 5.00 28 02/13/17 16:32 97 T-piece 5.00 28 I/O 02/13/17 02/13/17 02/13/17 02/14/17 02/14/17 02/14/17 06:59 14:59 22:59 06:59 14:59 22:59 Intake Total 1885 ml Output Total 1000 ml 625 ml Balance -1000 ml -625 ml 1885 ml Intake IV Total 870 ml Tube Feeding 915 ml Other 100 ml Output Urine Total 1000 ml 625 ml # Bowel Movements 0 Result Diagram: 02/13/17 1205 02/13/17 1205 Objective Remarks GENERAL: Has trach in place, tries to communicate via nodding EYES: No scleral icterus. No injection or drainage. CARDIOVASCULAR: Regular rate and rhythm without murmurs, gallops, or rubs. RESPIRATORY: Breath sounds equal bilaterally. No accessory muscle use. GASTROINTESTINAL: Abdomen soft, non-tender, nondistended. PEG tube in place, MUSCULOSKELETAL: No cyanosis, or edema. A/P Assessment and Plan s/p craniotomy with clipping of complex aneurysm and placement of lumbar drain by Dr. Aviles. at [facility] Has scheduled outpt F/u Dr. Aviles 03/24/17 at 1pm. PT/OT following. PT recommends acute rehab. Respiratory insuffiency S/p trach 6.0 [facility] placed 02/04. Trach care, suctioning. Pulmonology following, Dr Jacobo. HTN Metoprolol 12.5 mg per tube every 12 hours. GI: Dysphagia C. difficile diarrhea PEG placed 02/03 - tolerating tube feeds well Speech therapy has stated the patient passed swallow study today, we'll be ready to try pured diet tomorrow once cuff has been deflated Continue Protonix, no signs of GI bleeding, diarrhea has resolved if not improved Reglan 10 mg IV q8. FEN/RENAL: Hypernatremia Suspect dehydration as main culprit, repeat labs tomorrow C. difficile diarrhea He developed diarrhea and C diff toxin B was positive 01/26. He underwent 10 day course of flagyl 500 q8 po, completed 02/06/17. He still has persistent diarrhea , 500 ml per day. Tube feeds were held x2 days while sorting out issues of vomiting and ?coffee ground emesis. continue vancomycin 125 per tube qid and likely complete additional 10-14 day course. Low-dose insulin sliding scale with bedside glucose every 6 hours. PROPH: SCDs for DVT prophylaxis. Heparin 5000 units subcutaneous every 8 hours will be continued given that hgb is stable and he does not appear to have active bleeding. Jose Duarte MD, Hammad Mohammed MD Feb 14, 2017 16:25
--- NOTE | 2017-02-14 16:26 | HHI.PR ---
Subjective Remarks Patient was seen on 02/14, today, around 11 am. Follow-up on multiple issues including respiratory insufficiency and tube feeds. Patient tolerating pured diet well today Objective Vital Signs Date Time Temp Pulse Resp B/P Pulse Ox O2 Delivery O2 Flow Rate FiO2 02/14/17 12:09 98.2 85 20 129/72 93 02/14/17 09:47 96 T-piece 5.00 28 02/14/17 09:47 96 T-piece 5.00 28 02/14/17 08:25 98.9 94 20 138/89 94 02/14/17 05:34 90 02/14/17 05:25 98 T-piece 6.00 28 02/14/17 04:00 99.1 98 18 162/96 94 02/14/17 01:15 96 Trach Collar 6.00 28 02/14/17 00:00 99.1 102 18 169/93 93 02/13/17 20:00 98.3 101 18 161/96 95 02/13/17 19:00 87 02/13/17 16:32 97 T-piece 5.00 28 02/13/17 16:32 97 T-piece 5.00 28 I/O 02/13/17 02/13/17 02/13/17 02/14/17 02/14/17 02/14/17 06:59 14:59 22:59 06:59 14:59 22:59 Intake Total 1885 ml Output Total 1000 ml 625 ml Balance -1000 ml -625 ml 1885 ml Intake IV Total 870 ml Tube Feeding 915 ml Other 100 ml Output Urine Total 1000 ml 625 ml # Bowel Movements 0 Result Diagram: 02/13/17 1205 02/13/17 1205 Objective Remarks GENERAL: Has trach in place, sleeping comfortably EYES: No scleral icterus. No injection or drainage. CARDIOVASCULAR: Regular rate and rhythm without murmurs, gallops, or rubs. RESPIRATORY: Breath sounds equal bilaterally. No accessory muscle use. GASTROINTESTINAL: Abdomen soft, non-tender, nondistended. PEG tube in place, MUSCULOSKELETAL: No cyanosis, or edema. A/P Assessment and Plan s/p craniotomy with clipping of complex aneurysm and placement of lumbar drain by Dr. Aviles. at [facility] Has scheduled outpt F/u Dr. Aviles 03/24/17 at 1pm. PT/OT following. PT recommends acute rehab. Respiratory insuffiency S/p trach 6.0 Shiley placed 02/04. Trach care, suctioning. Pulmonology following, Dr Jacobo. HTN Metoprolol 12.5 mg per tube every 12 hours. GI: Dysphagia C. difficile diarrhea Tube feeds discontinued Pured diet Continue Protonix, no signs of GI bleeding, diarrhea has resolved Reglan 10 mg IV q8 - we'll consider discontinuing FEN/RENAL: Hypernatremia Suspect dehydration as main culprit, repeat labs tomorrow C. difficile diarrhea He developed diarrhea and C diff toxin B was positive 01/26. He underwent 10 day course of flagyl 500 q8 po, completed 02/06/17. He still has persistent diarrhea , 500 ml per day. Tube feeds were held x2 days while sorting out issues of vomiting and ?coffee ground emesis. continue vancomycin 125 per tube qid and likely complete additional 10-14 day course. Low-dose insulin sliding scale with bedside glucose every 6 hours. PROPH: SCDs for DVT prophylaxis. Heparin 5000 units subcutaneous every 8 hours will be continued given that hgb is stable and he does not appear to have active bleeding. Jose Duarte MD, Hammad Mohammed MD Feb 14, 2017 16:26
[2017-02-14] MEDS ORDERED: ENALAPRILAT 1.25 MG/ML VIAL IV PUSH PRN (16:30)
[2017-02-15] VITALS (10 sets, daily range): BP systolic 133–171; BP diastolic 78–91; PULSE 83–104; RESP 19–20; TEMP 98.3–99.7; O2SAT 92–97
[2017-02-15] MEDS: INSULIN ASPART SUPPLEMENTAL SCALE SQ SCH ×4 (03:00→21:00)
[2017-02-15] MEDS: CHLORHEXIDINE GLUCONATE 2 % 1 PACK (2 CLOTHS) TOP SCH (04:00)
[2017-02-15] MEDS: PANTOPRAZOLE SODIUM 40 MG VIAL IV PUSH SCH ×2 (05:30→14:55)
[2017-02-15] MEDS: NS + KCL 20 MEQ INJ 1,000 ML IV SCH (05:31)
[2017-02-15] MEDS: METOCLOPRAMIDE HCL 10 MG/2 ML VIAL IV PUSH SCH (05:31)
[2017-02-15] MEDS: HEPARIN SODIUM - SQ 10,000 UNITS/ML VIAL SQ SCH ×3 (05:31→21:59)
[2017-02-15] MEDS: SODIUM CHLORIDE 0.9% FLUSH 10 ML FLUSH IV FLUSH SCH ×2 (09:00→22:00)
[2017-02-15] MEDS: LACTOBACILLUS ACIDOPHILUS 1 GM PACKET OG-TUBE SCH ×3 (09:00→18:00)
[2017-02-15] MEDS: VANCOMYCIN 500 MG VIAL (FOR ORAL USE ONLY) PEG SCH ×4 (10:21→22:00)
[2017-02-15] MEDS: METOPROLOL TARTRATE 25 MG TAB PEG SCH ×2 (10:23→22:00)
[2017-02-15] MEDS: LISINOPRIL 5 MG TAB PO SCH (14:54)
--- NOTE | 2017-02-15 15:11 | HHI.PR ---
Subjective Remarks Follow-up on multiple issues including respiratory insufficiency, C. difficile diarrhea. tolerating pured diet well today. Family friends are present at bedside. Patient is able to communicate via thumbs up, thumbs down, and nodding. Shakes my hand upon entering. Objective Vital Signs Date Time Temp Pulse Resp B/P Pulse Ox O2 Delivery O2 Flow Rate FiO2 02/15/17 12:56 99.6 88 19 133/83 92 02/15/17 08:23 98.7 87 19 140/91 97 02/15/17 04:00 98.3 83 20 171/78 95 02/15/17 00:00 99.7 84 20 149/89 95 02/14/17 22:13 96 T-piece 5.00 28 02/14/17 20:00 99.9 84 20 149/89 95 02/14/17 17:30 165/84 02/14/17 16:30 99.3 82 20 214/92 93 I/O 02/14/17 02/14/17 02/14/17 02/15/17 02/15/17 02/15/17 07:00 15:00 23:00 07:00 15:00 23:00 Intake Total 1885 ml 720 ml 266 ml 544 ml Output Total 2 ml 750 ml Balance 1885 ml 718 ml -484 ml 544 ml Intake Oral 720 ml IV Total 870 ml 266 ml 544 ml Tube Feeding 915 ml Other 100 ml Output Urine Total 2 ml 750 ml # Voids 5 1 # Bowel Movements 1 2 Result Diagram: 02/13/17 1205 02/13/17 1205 Objective Remarks GENERAL: Has trach in place, no acute distress EYES: No scleral icterus. No injection or drainage. CARDIOVASCULAR: Regular rate and rhythm without murmurs, gallops, or rubs. RESPIRATORY: Breath sounds equal and clear bilaterally. No accessory muscle use. GASTROINTESTINAL: Abdomen soft, non-tender, nondistended. MUSCULOSKELETAL: No cyanosis, or edema. A/P Assessment and Plan s/p craniotomy with clipping of complex aneurysm and placement of lumbar drain by Dr. Aviles. at [facility] Has scheduled outpt F/u Dr. Aviles 03/24/17 at 1pm. PT/OT following. PT recommends acute rehab. Respiratory insufficiency S/p trach 6.0 Shiley placed 02/04. Trach care, suctioning. HTN Metoprolol 12.5 mg per tube every 12 hours. Added scheduled lisinopril, Vasotec when necessary C. difficile diarrhea - Continue vancomycin course, clinically significantly improved Abdominal distention - , resolved, discontinued Reglan yesterday Dysphagia - Pured diet per speech, speech following Hypernatremia - Suspect dehydration as main culprit, monitor C. difficile diarrhea He developed diarrhea and C diff toxin B was positive 01/26. He underwent 10 day course of flagyl 500 q8 po, completed 02/06/17. He still has persistent diarrhea , 500 ml per day. Tube feeds were held x2 days while sorting out issues of vomiting and ?coffee ground emesis. continue vancomycin 125 per tube qid and likely complete additional 10-14 day course. Low-dose insulin sliding scale with bedside glucose every 6 hours. PROPH: SCDs for DVT prophylaxis. Heparin 5000 units subcutaneous every 8 hours will be continued given that hgb is stable and he does not appear to have active bleeding. Jose Duarte MD, Hammad Mohammed MD Feb 15, 2017 15:11
[2017-02-15 17:48] LABS: BICARBONATE 24.7 MEQ/L (21.0-32.0); POTASSIUM 4.1 MEQ/L (3.5-5.1)
[2017-02-16] VITALS (8 sets, daily range): BP systolic 125–154; BP diastolic 70–90; PULSE 86–101; RESP 17–19; TEMP 98–99.3; O2SAT 94–98
[2017-02-16] MEDS: INSULIN ASPART SUPPLEMENTAL SCALE SQ SCH ×4 (03:00→21:00)
[2017-02-16] MEDS: PANTOPRAZOLE SODIUM 40 MG VIAL IV PUSH SCH ×2 (03:20→18:34)
[2017-02-16] MEDS: CHLORHEXIDINE GLUCONATE 2 % 1 PACK (2 CLOTHS) TOP SCH (04:00)
[2017-02-16] MEDS: HEPARIN SODIUM - SQ 10,000 UNITS/ML VIAL SQ SCH ×2 (07:37→13:05)
[2017-02-16] MEDS: LACTOBACILLUS ACIDOPHILUS 1 GM PACKET OG-TUBE SCH ×3 (09:00→18:33)
[2017-02-16] MEDS: LISINOPRIL 5 MG TAB PO SCH (09:00)
[2017-02-16] MEDS: METOPROLOL TARTRATE 25 MG TAB PEG SCH (09:00)
[2017-02-16] MEDS: SODIUM CHLORIDE 0.9% FLUSH 10 ML FLUSH IV FLUSH SCH ×2 (09:00→21:00)
[2017-02-16] MEDS: VANCOMYCIN 500 MG VIAL (FOR ORAL USE ONLY) PEG SCH ×4 (13:00→21:00)
--- NOTE | 2017-02-16 17:05 | HHI.PR ---
Subjective Remarks Follow-up on multiple issues including respiratory insufficiency, C. difficile diarrhea. Patient still occasionally tugging at medical devices, but otherwise had no clinical deterioration overnight Objective Vital Signs Date Time Temp Pulse Resp B/P Pulse Ox O2 Delivery O2 Flow Rate FiO2 02/16/17 16:37 97 Trach Collar 28 02/16/17 12:00 98.6 91 18 154/70 97 02/16/17 08:54 94 Trach Collar 4.00 28 02/16/17 08:00 98.0 88 17 141/87 95 02/16/17 04:37 98.2 101 19 142/90 98 02/16/17 00:30 99.3 86 19 150/90 98 02/15/17 20:35 95 Trach Collar 5.00 28 02/15/17 20:30 98.8 104 19 138/91 94 02/15/17 20:00 101 02/15/17 17:54 91 I/O 02/15/17 02/15/17 02/15/17 02/16/17 02/16/17 02/16/17 07:00 15:00 23:00 07:00 15:00 23:00 Intake Total 544 ml 450 ml 120 ml 480 ml Output Total 600 ml 600 ml Balance 544 ml -150 ml -480 ml 480 ml Intake Oral 120 ml 480 ml IV Total 544 ml Tube Feeding 350 ml Other 100 ml Output Urine Total 600 ml 600 ml # Voids 1 2 3 # Bowel Movements 1 1 1 Result Diagram: 02/13/17 1205 02/15/17 1645 Objective Remarks GENERAL: Has trach in place, no acute distress, sleeping, easily awoken CARDIOVASCULAR: Regular rate and rhythm without murmurs, gallops, or rubs. RESPIRATORY: Breath sounds equal and clear bilaterally. No accessory muscle use. GASTROINTESTINAL: Abdomen soft, non-tender, nondistended. MUSCULOSKELETAL: No cyanosis, or edema. 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 Aviles. at [facility] Has scheduled outpt F/u Dr. Aviles 03/24/17 at 1pm. PT/OT following. PT recommends acute rehab. Respiratory insufficiency S/p trach 6.0 Shiley placed 02/04. Trach care, suctioning. Down to 4 L at FiO2 28% HTN Metoprolol 12.5 mg per tube every 12 hours. Added scheduled lisinopril, Vasotec when necessary C. difficile diarrhea - Continue vancomycin course, clinically significantly improved Dysphagia - Pured diet per speech, speech following Hypernatremia - resolved Low-dose insulin sliding scale with bedside glucose every 6 hours. PROPH: SCDs for DVT prophylaxis. Heparin 5000 units subcutaneous every 8 hours will be continued given that hgb is stable and he does not appear to have active bleeding. Spoke with pulmonology today, plan is to try to wean the patient off the trach before sending him for rehabilitation placement Jose Duarte MD, Hammad Mohammed MD Feb 16, 2017 17:05
--- NOTE | 2017-02-16 19:04 | HHI.PR ---
Subjective Remarks 51 YOWM with RF, trach, s/p aneurysem clipping at BS Awake, follows commands no new complaint Minimal trach secretions Objective Vital Signs Vital Signs Date Time Temp Pulse Resp B/P Pulse Ox O2 Delivery O2 Flow Rate FiO2 02/16/17 16:37 97 Trach Collar 28 02/16/17 16:00 98.2 94 17 125/78 95 02/16/17 12:00 98.6 91 18 154/70 97 02/16/17 08:54 94 Trach Collar 4.00 28 02/16/17 08:00 98.0 88 17 141/87 95 02/16/17 04:37 98.2 101 19 142/90 98 02/16/17 00:30 99.3 86 19 150/90 98 02/15/17 20:35 95 Trach Collar 5.00 28 02/15/17 20:30 98.8 104 19 138/91 94 02/15/17 20:00 101 I/O 02/15/17 02/15/17 02/15/17 02/16/17 02/16/17 02/16/17 06:59 14:59 22:59 06:59 14:59 22:59 Intake Total 544 ml 450 ml 120 ml 480 ml Output Total 600 ml 600 ml Balance 544 ml -150 ml -480 ml 480 ml Intake Oral 120 ml 480 ml IV Total 544 ml Tube Feeding 350 ml Other 100 ml Output Urine Total 600 ml 600 ml # Voids 1 2 3 # Bowel Movements 1 1 1 Result Diagram: 02/13/17 1205 02/15/17 1645 Objective Remarks GENERAL: WBWN male, NAD SKIN: Warm and dry. HEAD: Normocephalic. EYES: No scleral icterus. No injection or drainage. NECK: Supple, trachea midline. No JVD or lymphadenopathy. Has Trach CARDIOVASCULAR: Regular rate and rhythm without murmurs, gallops, or rubs. RESPIRATORY: Breath sounds equal bilaterally. No accessory muscle use. GASTROINTESTINAL: Abdomen soft, non-tender, nondistended. has PEG MUSCULOSKELETAL: No cyanosis, or edema. BACK: Nontender without obvious deformity. No CVA tenderness. A/P Assessment and Plan RF, S/P trach S/P Aneurysm clipping S/P PEG Pleural eff small PLAN: Cont Trach tube Suction prn Aerosol nebs TF Change [facility] fenestrated tr[facility] Feb 16, 2017 19:04
[2017-02-17] VITALS (9 sets, daily range): BP systolic 117–141; BP diastolic 68–88; PULSE 75–98; RESP 18–21; TEMP 97.2–99.4; O2SAT 93–99
[2017-02-17] MEDS: METOPROLOL TARTRATE 25 MG TAB PEG SCH ×3 (00:16→22:45)
[2017-02-17] MEDS: HEPARIN SODIUM - SQ 10,000 UNITS/ML VIAL SQ SCH ×4 (00:16→22:46)
[2017-02-17] MEDS: PANTOPRAZOLE SODIUM 40 MG VIAL IV PUSH SCH ×2 (03:00→15:46)
[2017-02-17] MEDS: INSULIN ASPART SUPPLEMENTAL SCALE SQ SCH ×4 (03:00→21:00)
[2017-02-17] MEDS: CHLORHEXIDINE GLUCONATE 2 % 1 PACK (2 CLOTHS) TOP SCH ×2 (04:00→19:58)
[2017-02-17] MEDS: VANCOMYCIN 500 MG VIAL (FOR ORAL USE ONLY) PEG SCH ×4 (09:45→22:45)
[2017-02-17] MEDS: LISINOPRIL 5 MG TAB PO SCH (09:45)
[2017-02-17] MEDS: LACTOBACILLUS ACIDOPHILUS 1 GM PACKET OG-TUBE SCH ×3 (09:46→16:39)
[2017-02-17] MEDS: SODIUM CHLORIDE 0.9% FLUSH 10 ML FLUSH IV FLUSH SCH ×2 (09:46→22:45)
--- NOTE | 2017-02-17 17:47 | HHI.PR ---
Subjective Remarks Follow-up on multiple issues including respiratory insufficiency, C. difficile diarrhea. No acute issues reported overnight Objective Vital Signs Date Time Temp Pulse Resp B/P Pulse Ox O2 Delivery O2 Flow Rate FiO2 02/17/17 16:00 98.2 83 18 117/79 95 02/17/17 13:01 99 Trach Collar 5.00 28 02/17/17 12:00 98.3 88 18 133/83 96 02/17/17 08:00 98.3 88 18 119/74 93 02/17/17 07:00 75 02/17/17 04:00 97.2 84 20 136/84 95 02/17/17 00:26 99.4 86 20 141/88 96 02/16/17 20:00 98.6 90 18 136/76 97 I/O 02/16/17 02/16/17 02/16/17 02/17/17 02/17/17 02/17/17 06:59 14:59 22:59 06:59 14:59 22:59 Intake Total 120 ml 480 ml 610 ml 120 ml Output Total 600 ml Balance -480 ml 480 ml 610 ml 120 ml Intake Oral 120 ml 480 ml 120 ml Tube Feeding 610 ml Output Urine Total 600 ml # Voids 3 4 1 # Bowel Movements 1 1 4 Result Diagram: 02/13/17 1205 02/15/17 1645 Objective Remarks GENERAL: Has trach in place, no acute distress, sleeping, easily awoken, actually is able to speak with a voiced today, denies any pain CARDIOVASCULAR: Regular rate and rhythm without murmurs, gallops, or rubs. RESPIRATORY: Breath sounds equal and clear bilaterally. No accessory muscle use. GASTROINTESTINAL: Abdomen soft, non-tender, nondistended. MUSCULOSKELETAL: No cyanosis, or edema. 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 Aviles. at [facility] Has scheduled outpt F/u Dr. Aviles 03/24/17 at 1pm. PT/OT following. PT recommends acute rehab. Respiratory insufficiency - improving S/p trach Fenestrated Trach care, suctioning. FiO2 28% HTN Metoprolol 12.5 mg per tube every 12 hours. lisinopril, Vasotec when necessary C. difficile diarrhea - Continue vancomycin course, clinically significantly improved Dysphagia - Pured diet per speech, speech following Hypernatremia - resolved Low-dose insulin sliding scale with bedside glucose every 6 hours. PROPH: SCDs for DVT prophylaxis. Heparin 5000 units subcutaneous every 8 hours will be continued given that hgb is stable and he does not appear to have active bleeding. We'll need placement at time of discharge. Jose Duarte MD, Hammad Mohammed MD Feb 17, 2017 17:47
--- NOTE | 2017-02-17 19:16 | HHI.PR ---
Subjective Remarks 51 YOWM with RF, trach, s/p aneurysem clipping at BS Awake, follows commands no new complaint Tolerates PMV Objective Vital Signs Vital Signs Date Time Temp Pulse Resp B/P Pulse Ox O2 Delivery O2 Flow Rate FiO2 02/17/17 17:50 95 T-piece 6.00 35 02/17/17 16:00 98.2 83 18 117/79 95 02/17/17 13:01 99 Trach Collar 5.00 28 02/17/17 12:00 98.3 88 18 133/83 96 02/17/17 08:00 98.3 88 18 119/74 93 02/17/17 07:00 75 02/17/17 04:00 97.2 84 20 136/84 95 02/17/17 00:26 99.4 86 20 141/88 96 02/16/17 20:00 98.6 90 18 136/76 97 I/O 02/16/17 02/16/17 02/16/17 02/17/17 02/17/17 02/17/17 07:00 15:00 23:00 07:00 15:00 23:00 Intake Total 120 ml 480 ml 610 ml 120 ml Output Total 600 ml Balance -480 ml 480 ml 610 ml 120 ml Intake Oral 120 ml 480 ml 120 ml Tube Feeding 610 ml Output Urine Total 600 ml # Voids 3 4 1 # Bowel Movements 1 1 4 Result Diagram: 02/13/17 1205 02/15/17 1645 Objective Remarks GENERAL: WBWN male, NAD SKIN: Warm and dry. HEAD: Normocephalic. EYES: No scleral icterus. No injection or drainage. NECK: Supple, trachea midline. No JVD or lymphadenopathy. Has Trach CARDIOVASCULAR: Regular rate and rhythm without murmurs, gallops, or rubs. RESPIRATORY: Breath sounds equal bilaterally. No accessory muscle use. GASTROINTESTINAL: Abdomen soft, non-tender, nondistended. has PEG MUSCULOSKELETAL: No cyanosis, or edema. BACK: Nontender without obvious deformity. No CVA tenderness. A/P Assessment and Plan RF, S/P trach S/P Aneurysm clipping S/P PEG Pleural eff small PLAN: Cont Trach tube Suction prn Aerosol nebs Trach capping in AM Liam Jacobo MD Feb 17, 2017 19:15
[2017-02-18] VITALS (11 sets, daily range): BP systolic 114–156; BP diastolic 63–73; PULSE 77–100; RESP 18–20; TEMP 97.5–98.9; O2SAT 95–99
[2017-02-18] MEDS: ACETAMINOPHEN 325 MG TAB PO PRN (02:27)
[2017-02-18] MEDS: PANTOPRAZOLE SODIUM 40 MG VIAL IV PUSH SCH ×2 (02:28→16:07)
[2017-02-18] MEDS: INSULIN ASPART SUPPLEMENTAL SCALE SQ SCH ×4 (03:00→21:00)
[2017-02-18] MEDS: HEPARIN SODIUM - SQ 10,000 UNITS/ML VIAL SQ SCH ×3 (05:25→21:28)
[2017-02-18] MEDS: LACTOBACILLUS ACIDOPHILUS 1 GM PACKET OG-TUBE SCH ×3 (09:00→17:50)
[2017-02-18] MEDS: METOPROLOL TARTRATE 25 MG TAB PEG SCH ×2 (10:24→21:27)
[2017-02-18] MEDS: VANCOMYCIN 500 MG VIAL (FOR ORAL USE ONLY) PEG SCH ×4 (10:24→21:28)
[2017-02-18] MEDS: LISINOPRIL 5 MG TAB PO SCH (10:24)
[2017-02-18] MEDS: SODIUM CHLORIDE 0.9% FLUSH 10 ML FLUSH IV FLUSH SCH ×2 (10:25→21:28)
--- NOTE | 2017-02-18 17:43 | HHI.PR ---
Subjective Remarks 51 YOWM with RF, trach, s/p aneurysem clipping Awake, follows commands no new complaint Tolerates cappingNo trach secretions Tolerates solid food Objective Vital Signs Vital Signs Date Time Temp Pulse Resp B/P Pulse Ox O2 Delivery O2 Flow Rate FiO2 02/18/17 16:00 97.8 80 20 117/63 95 02/18/17 12:00 98.9 78 19 114/71 96 02/18/17 10:39 96 Trach Collar 35 02/18/17 08:00 97.5 89 18 116/67 96 02/18/17 07:00 83 02/18/17 05:45 97.9 100 20 125/70 99 02/18/17 04:00 77 02/18/17 01:09 97 Trach Collar 6.00 28 02/18/17 00:20 98.1 80 20 120/67 98 02/17/17 21:30 97.9 98 21 122/68 97 02/17/17 17:50 95 T-piece 6.00 35 I/O 02/17/17 02/17/17 02/17/17 02/18/17 02/18/17 02/18/17 07:00 15:00 23:00 07:00 15:00 23:00 Intake Total 610 ml 120 ml 0 ml 525 ml Output Total 375 ml Balance 610 ml 120 ml 0 ml 150 ml Intake Oral 120 ml 0 ml 100 ml Tube Feeding 610 ml 325 ml Other 100 ml Output Urine Total 375 ml # Voids 4 1 2 1 # Bowel Movements 4 0 0 1 Result Diagram: 02/15/17 8435 Objective Remarks GENERAL: WBWN male, NAD SKIN: Warm and dry. HEAD: Normocephalic. EYES: No scleral icterus. No injection or drainage. NECK: Supple, trachea midline. No JVD or lymphadenopathy. Has Trach CARDIOVASCULAR: Regular rate and rhythm without murmurs, gallops, or rubs. RESPIRATORY: Breath sounds equal bilaterally. No accessory muscle use. GASTROINTESTINAL: Abdomen soft, non-tender, nondistended. has PEG MUSCULOSKELETAL: No cyanosis, or edema. BACK: Nontender without obvious deformity. No CVA tenderness. A/P Assessment and Plan RF, S/P trach S/P Aneurysm clipping S/P PEG Pleural eff small PLAN: Cont Trach tube Suction prn Aerosol nebs DC trach in AM. Liam Jacobo MD Feb 18, 2017 17:43
--- NOTE | 2017-02-18 20:03 | HHI.PR ---
Subjective Remarks Follow-up on multiple issues including respiratory insufficiency, C. difficile diarrhea. Patient is conversant with me today, is asking about when trach will be likely coming out. Says that his diarrhea has definitely slowed down, says his breathing is okay Objective Vital Signs Date Time Temp Pulse Resp B/P Pulse Ox O2 Delivery O2 Flow Rate FiO2 02/18/17 16:00 97.8 80 20 117/63 95 02/18/17 12:00 98.9 78 19 114/71 96 02/18/17 10:39 96 Trach Collar 35 02/18/17 08:00 97.5 89 18 116/67 96 02/18/17 07:00 83 02/18/17 05:45 97.9 100 20 125/70 99 02/18/17 04:00 77 02/18/17 01:09 97 Trach Collar 6.00 28 02/18/17 00:20 98.1 80 20 120/67 98 02/17/17 21:30 97.9 98 21 122/68 97 I/O 02/17/17 02/17/17 02/17/17 02/18/17 02/18/17 02/18/17 06:59 14:59 22:59 06:59 14:59 22:59 Intake Total 610 ml 120 ml 0 ml 525 ml Output Total 375 ml Balance 610 ml 120 ml 0 ml 150 ml Intake Oral 120 ml 0 ml 100 ml Tube Feeding 610 ml 325 ml Other 100 ml Output Urine Total 375 ml # Voids 4 1 2 1 # Bowel Movements 4 0 0 1 Result Diagram: 02/15/17 1645 Imaging Last Impressions Abdomen X-Ray 02/11/17 0600 Signed Impressions: Service Date/Time: Saturday, February 11, 2017 06:19 - CONCLUSION: No acute disease. Krystyna Kohli MD CT Angiography 02/11/17 0000 Signed Impressions: Service Date/Time: Saturday, February 11, 2017 15:04 - CONCLUSION: 1. Limited examination with visualization of the pulmonary arteries to the very proximal segmental level. No evidence for pulmonary embolism to the very proximal segmental level. 2. Mild bilateral posterior lower lobe airspace consolidation and associated trace bilateral pleural effusions. Differential considerations include aspiration versus atelectasis. Antoine Sumner MD Chest X-Ray 02/10/17 0000 Signed Impressions: Service Date/Time: Friday, February 10, 2017 19:32 - CONCLUSION: Patchy left lower lobe infiltrates. Segundo Hogan MD Objective Remarks GENERAL: trach in place, on RA, NAD, coughing CARDIOVASCULAR: Regular rate and rhythm without murmurs, gallops, or rubs. RESPIRATORY: Breath sounds equal and clear bilaterally. No accessory muscle use. GASTROINTESTINAL: Abdomen soft, non-tender, nondistended. MUSCULOSKELETAL: Very thin atrophied calves bilaterally A/P Assessment and Plan 51-year-old white male admitted presented to [facility] 01/22/17 with a ruptured 3 mm Acom aneurysm, not amenable to coiling, was managed medically by neurosurgery. Patient was transferred to [facility]. He underwent craniotomy with clipping of complex aneurysm and placement of lumbar drain 01/24/[address] Aviles. He developed diarrhea and C diff was positive 01/26. He underwent 10 day course of flagyl 500 q8 po, completed 02/06/17. He underwent tracheostomy with 6.0 cuffed Shiley. He underwent PEG 02/03/[address] Machado and Ade. Transferred back to [facility]. Has weaned down on his O2 to , currently undergoing tx for C.diff and progressing with speech therapy as he is advancing his diet. s/p craniotomy with clipping of complex aneurysm and placement of lumbar drain by Dr. Aviles. at [facility] Has scheduled outpt F/u Dr. Aviles 03/24/17 at 1pm. PT/OT following. PT recommends acute rehab. Respiratory insufficiency - resolved S/p trach Fenestrated Trach care, suctioning. on RA Plan to d/c trach in AM per pulm HTN Metoprolol 12.5 mg per tube every 12 hours. lisinopril, Vasotec when necessary C. difficile diarrhea - Continue vancomycin course, clinically significantly improved, abx day # day 6 of 14 Dysphagia - Pured diet per speech, speech following, tube feeds per unix system administrator, may decrease the more he enhances his diet intake Low-dose insulin sliding scale with bedside glucose every 6 hours. PROPH: SCDs for DVT prophylaxis. Heparin We'll need rehab placement at time of discharge. Jose Duarte MD, Hammad Mohammed MD Feb 18, 2017 20:03
[2017-02-19] VITALS (7 sets, daily range): BP systolic 111–146; BP diastolic 68–77; PULSE 72–89; RESP 15–19; TEMP 97.7–98.2; O2SAT 91–98
[2017-02-19] MEDS: INSULIN ASPART SUPPLEMENTAL SCALE SQ SCH ×4 (03:00→21:00)
[2017-02-19] MEDS: PANTOPRAZOLE SODIUM 40 MG VIAL IV PUSH SCH ×2 (03:27→12:21)
[2017-02-19] MEDS: CHLORHEXIDINE GLUCONATE 2 % 1 PACK (2 CLOTHS) TOP SCH (04:00)
[2017-02-19] MEDS: HEPARIN SODIUM - SQ 10,000 UNITS/ML VIAL SQ SCH ×3 (04:36→23:26)
[2017-02-19] MEDS: SODIUM CHLORIDE 0.9% FLUSH 10 ML FLUSH IV FLUSH SCH ×2 (09:00→23:25)
[2017-02-19] MEDS: LACTOBACILLUS ACIDOPHILUS 1 GM PACKET OG-TUBE SCH ×3 (10:39→17:28)
[2017-02-19] MEDS: VANCOMYCIN 500 MG VIAL (FOR ORAL USE ONLY) PEG SCH ×4 (10:39→23:24)
[2017-02-19] MEDS: METOPROLOL TARTRATE 25 MG TAB PEG SCH ×2 (10:39→23:24)
[2017-02-19] MEDS: LISINOPRIL 5 MG TAB PO SCH (10:39)
--- NOTE | 2017-02-19 17:10 | HHI.PR ---
Subjective Remarks Follow-up C. difficile. Patient reports of 2 soft BM today which the nurse did not observe Objective Vitals Vital Signs Date Time Temp Pulse Resp B/P Pulse Ox O2 Delivery O2 Flow Rate FiO2 02/19/17 14:24 94 21 02/19/17 08:00 86 02/19/17 08:00 97.7 87 15 130/77 92 02/19/17 05:30 98.0 80 19 123/71 98 02/19/17 00:00 98.1 89 19 146/70 97 02/18/17 22:09 97 capped 02/18/17 20:45 97.9 93 19 156/73 96 I/O 02/18/17 02/18/17 02/18/17 02/19/17 02/19/17 02/19/17 07:00 15:00 23:00 07:00 15:00 23:00 Intake Total 525 ml 200 ml 400 ml Output Total 375 ml 450 ml Balance 150 ml 200 ml -50 ml Intake Oral 100 ml 200 ml 400 ml Tube Feeding 325 ml Other 100 ml Output Urine Total 375 ml 450 ml # Voids 1 2 4 # Bowel Movements 0 1 1 0 Result Diagram: 02/15/17 1645 Imaging Last Impressions Abdomen X-Ray 02/11/17 0600 Signed Impressions: Service Date/Time: Saturday, February 11, 2017 06:19 - CONCLUSION: No acute disease. Krystyna Kohli MD CT Angiography 02/11/17 0000 Signed Impressions: Service Date/Time: Saturday, February 11, 2017 15:04 - CONCLUSION: 1. Limited examination with visualization of the pulmonary arteries to the very proximal segmental level. No evidence for pulmonary embolism to the very proximal segmental level. 2. Mild bilateral posterior lower lobe airspace consolidation and associated trace bilateral pleural effusions. Differential considerations include aspiration versus atelectasis. Antoine Sumner MD Chest X-Ray 02/10/17 0000 Signed Impressions: Service Date/Time: Friday, February 10, 2017 19:32 - CONCLUSION: Patchy left lower lobe infiltrates. Segundo Hogan MD Objective Remarks GENERAL: Well-developed, well-nourished in no distress SKIN: Warm and dry. HEAD: Atraumatic. Normocephalic. EYES: Pupils equal and round. No scleral icterus. No injection or drainage. ENT: No nasal bleeding or discharge. Mucous membranes pink and moist. NECK: Trachea midline. No JVD. Tracheostomy capped CARDIOVASCULAR: Regular rate and rhythm. RESPIRATORY: No accessory muscle use. Clear to auscultation. Breath sounds equal bilaterally. GASTROINTESTINAL: Abdomen soft, non-tender, nondistended. PEG in place MUSCULOSKELETAL: Extremities without clubbing, cyanosis, or edema. No obvious deformities. NEUROLOGICAL: Awake and alert. No obvious cranial nerve deficits. Generalized weakness. Normal speech. A/P Problem List: (1) Subarachnoid hemorrhage ICD Code: I60.9 Status: Acute (2) Dysphagia ICD Code: R13.10 Status: Acute Assessment and Plan 51-year-old white male admitted presented to [facility] 01/22/17 with a ruptured 3 mm Acom aneurysm, not amenable to coiling, was managed medically by neurosurgery. Patient was transferred to [facility]. He underwent craniotomy with clipping of complex aneurysm and placement of lumbar drain 01/24/[address] Aviles. He developed diarrhea and C diff was positive 01/26. He underwent 10 day course of flagyl 500 q8 po, completed 02/06/17. He underwent tracheostomy with 6.0 cuffed Shiley. He underwent PEG 02/03/[address] Machado and Ade. Transferred back to [facility]. Has weaned down on his O2 to RA, currently undergoing tx for C.diff and progressing with speech therapy as he is advancing his diet. s/p craniotomy with clipping of complex aneurysm and placement of lumbar drain by Dr. Aviles. at [facility] Has scheduled outpt F/u Dr. Aviles 03/24/17 at 1pm. PT/OT following. PT recommends acute rehab. Respiratory insufficiency - resolved S/p trach Fenestrated Trach care, suctioning. on RA Plan to d/c trach in AM per pulm HTN Metoprolol 12.5 mg per tube every 12 hours. lisinopril, Vasotec when necessary C. difficile diarrhea - Continue vancomycin course, clinically significantly improved Dysphagia - Pured diet per speech, speech following, tube feeds per manager strategic sourcing, may decrease the more he enhances his diet intake. Calorie count in progress Low-dose insulin sliding scale with bedside glucose every 6 hours. PROPH: SCDs for DVT prophylaxis. Heparin Discharge Planning We'll need rehab placement at time of discharge. No payor source. Case management following Stuart Gurrola MD Feb 19, 2017 17:10
--- NOTE | 2017-02-19 17:30 | HHI.PR ---
Subjective Remarks 51 YOWM with RF, trach, s/p aneurysem clipping Awake, follows commands no new complaint Tolerates capping No trach secretions Tolerates solid food Objective Vital Signs Vital Signs Date Time Temp Pulse Resp B/P Pulse Ox O2 Delivery O2 Flow Rate FiO2 02/19/17 14:24 94 21 02/19/17 08:00 86 02/19/17 08:00 97.7 87 15 130/77 92 02/19/17 05:30 98.0 80 19 123/71 98 02/19/17 00:00 98.1 89 19 146/70 97 02/18/17 22:09 97 capped 02/18/17 20:45 97.9 93 19 156/73 96 I/O 02/18/17 02/18/17 02/18/17 02/19/17 02/19/17 02/19/17 07:00 15:00 23:00 07:00 15:00 23:00 Intake Total 525 ml 200 ml 400 ml Output Total 375 ml 450 ml Balance 150 ml 200 ml -50 ml Intake Oral 100 ml 200 ml 400 ml Tube Feeding 325 ml Other 100 ml Output Urine Total 375 ml 450 ml # Voids 1 2 4 # Bowel Movements 0 1 1 0 Result Diagram: 02/15/17 1645 Objective Remarks GENERAL: WBWN male, NAD SKIN: Warm and dry. HEAD: Normocephalic. EYES: No scleral icterus. No injection or drainage. NECK: Supple, trachea midline. No JVD or lymphadenopathy. Has Trach CARDIOVASCULAR: Regular rate and rhythm without murmurs, gallops, or rubs. RESPIRATORY: Breath sounds equal bilaterally. No accessory muscle use. GASTROINTESTINAL: Abdomen soft, non-tender, nondistended. has PEG MUSCULOSKELETAL: No cyanosis, or edema. BACK: Nontender without obvious deformity. No CVA tenderness. A/P Assessment and Plan RF, S/P trach S/P Aneurysm clipping S/P PEG Pleural eff small PLAN: Cont Trach tube Suction prn Aerosol nebs DW RT, will DC arslan. Liam Jacobo MD Feb 19, 2017 17:30
[2017-02-20] VITALS (7 sets, daily range): BP systolic 115–136; BP diastolic 73–84; PULSE 71–93; RESP 15–18; TEMP 97.6–98.4; O2SAT 92–98
[2017-02-20] MEDS: INSULIN ASPART SUPPLEMENTAL SCALE SQ SCH ×4 (03:00→20:40)
[2017-02-20] MEDS: CHLORHEXIDINE GLUCONATE 2 % 1 PACK (2 CLOTHS) TOP SCH (04:00)
[2017-02-20] MEDS: HEPARIN SODIUM - SQ 10,000 UNITS/ML VIAL SQ SCH ×3 (06:45→21:08)
[2017-02-20] MEDS: LACTOBACILLUS ACIDOPHILUS 1 GM PACKET OG-TUBE SCH ×3 (09:00→17:46)
[2017-02-20] MEDS: SODIUM CHLORIDE 0.9% FLUSH 10 ML FLUSH IV FLUSH SCH ×2 (09:00→21:00)
[2017-02-20] MEDS: LISINOPRIL 5 MG TAB PO SCH (09:31)
[2017-02-20] MEDS: METOPROLOL TARTRATE 25 MG TAB PEG SCH ×2 (09:31→21:00)
[2017-02-20] MEDS: VANCOMYCIN 500 MG VIAL (FOR ORAL USE ONLY) PEG SCH ×4 (09:31→21:07)
--- NOTE | 2017-02-20 12:17 | HHI.PR ---
Subjective Remarks F/U CRF and C diff. Tolerated decannulation. One soft BM today. Occasional confusion Objective Vitals Vital Signs Date Time Temp Pulse Resp B/P Pulse Ox O2 Delivery O2 Flow Rate FiO2 02/20/17 08:00 97.8 84 15 115/84 92 02/20/17 04:30 97.9 77 17 125/74 96 02/20/17 00:30 98.4 71 16 136/80 97 02/19/17 16:00 98.2 85 16 122/76 95 02/19/17 15:00 86 02/19/17 14:24 94 21 I/O 02/19/17 02/19/17 02/19/17 02/20/17 02/20/17 02/20/17 07:00 15:00 23:00 07:00 15:00 23:00 Intake Total 400 ml 720 ml 120 ml Output Total 450 ml Balance -50 ml 720 ml 120 ml Intake Oral 400 ml 720 ml 120 ml Output Urine Total 450 ml # Voids 4 2 3 # Bowel Movements 0 1 Objective Remarks GENERAL: Well-developed, well-nourished in no distress SKIN: Warm and dry. HEAD: Atraumatic. Normocephalic. EYES: Pupils equal and round. No scleral icterus. No injection or drainage. ENT: No nasal bleeding or discharge. Mucous membranes pink and moist. NECK: Trachea midline. No JVD. Tracheostomy removed CARDIOVASCULAR: Regular rate and rhythm. RESPIRATORY: No accessory muscle use. Clear to auscultation. Breath sounds equal bilaterally. GASTROINTESTINAL: Abdomen soft, non-tender, nondistended. PEG in place MUSCULOSKELETAL: Extremities without clubbing, cyanosis, or edema. No obvious deformities. NEUROLOGICAL: Awake and alert. No obvious cranial nerve deficits. Generalized weakness. Normal speech. A/P Problem List: (1) Subarachnoid hemorrhage ICD Code: I60.9 Status: Acute (2) Dysphagia ICD Code: R13.10 Status: Acute Assessment and Plan 51-year-old white male admitted presented to [facility] 01/22/17 with a ruptured 3 mm Acom aneurysm, not amenable to coiling, was managed medically by neurosurgery. Patient was transferred to [facility]. He underwent craniotomy with clipping of complex aneurysm and placement of lumbar drain 01/24/[address] Aviles. He developed diarrhea and C diff was positive 01/26. He underwent 10 day course of flagyl 500 q8 po, completed 02/06/17. He underwent tracheostomy with 6.0 cuffed Shiley. He underwent PEG 02/03/[address] Machado and Ade. Transferred back to [facility]. Has weaned down on his O2 to RA, currently undergoing tx for C.diff and progressing with speech therapy as he is advancing his diet. s/p craniotomy with clipping of complex aneurysm and placement of lumbar drain by Dr. Aviles. at [facility] Has scheduled outpt F/u Dr. Aviles 03/24/17 at 1pm. PT/OT following. PT recommends acute rehab. Ct ST for cognitive deficits Respiratory failure - resolved S/p trach removal on RA HTN Metoprolol 12.5 mg per tube every 12 hours. lisinopril, Vasotec when necessary C. difficile diarrhea - Continue vancomycin course, clinically significantly improved Dysphagia - Pured diet per speech, speech following, tube feeds per set up machinist, may decrease the more he enhances his diet intake. Calorie count in progress last day today Low-dose insulin sliding scale with bedside glucose every 6 hours. PROPH: SCDs for DVT prophylaxis. Heparin Discharge Planning We'll need rehab placement at time of discharge. No payor source. Dw Case management possible home dc if safe and cleared by PT with 24 hour family supervision Stuart Gurrola MD Feb 20, 2017 12:17
--- NOTE | 2017-02-20 17:41 | HHI.PR ---
Subjective Remarks 51 YOWM with RF, trach, s/p aneurysem clipping Awake, follows commands no new complaint Tolerates solid food Doing well after decannulation. Objective Vital Signs Vital Signs Date Time Temp Pulse Resp B/P Pulse Ox O2 Delivery O2 Flow Rate FiO2 02/20/17 16:00 97.7 89 18 118/73 98 02/20/17 08:00 97.8 84 15 115/84 92 02/20/17 04:30 97.9 77 17 125/74 96 02/20/17 00:30 98.4 71 16 136/80 97 I/O 02/19/17 02/19/17 02/19/17 02/20/17 02/20/17 02/20/17 06:59 14:59 22:59 06:59 14:59 22:59 Intake Total 400 ml 720 ml 120 ml Output Total 450 ml Balance -50 ml 720 ml 120 ml Intake Oral 400 ml 720 ml 120 ml Output Urine Total 450 ml # Voids 4 2 3 # Bowel Movements 0 1 Objective Remarks GENERAL: WBWN male, NAD SKIN: Warm and dry. HEAD: Normocephalic. EYES: No scleral icterus. No injection or drainage. NECK: Supple, trachea midline. No JVD or lymphadenopathy. Has Trach CARDIOVASCULAR: Regular rate and rhythm without murmurs, gallops, or rubs. RESPIRATORY: Breath sounds equal bilaterally. No accessory muscle use. GASTROINTESTINAL: Abdomen soft, non-tender, nondistended. has PEG MUSCULOSKELETAL: No cyanosis, or edema. BACK: Nontender without obvious deformity. No CVA tenderness. A/P Assessment and Plan RF, S/P trach S/P Aneurysm clipping S/P PEG Pleural eff small PLAN: Cont Trach tube Suction prn Aerosol nebs Stable after decannulation. Liam Jacobo MD Feb 20, 2017 17:41
[2017-02-21] VITALS (7 sets, daily range): BP systolic 109–138; BP diastolic 59–81; PULSE 70–93; RESP 18–20; TEMP 97.4–98.7; O2SAT 93–97
[2017-02-21] MEDS: CHLORHEXIDINE GLUCONATE 2 % 1 PACK (2 CLOTHS) TOP SCH (04:00)
[2017-02-21] MEDS: INSULIN ASPART SUPPLEMENTAL SCALE SQ SCH ×3 (04:02→20:59)
[2017-02-21] MEDS: LISINOPRIL 5 MG TAB PO SCH (08:24)
[2017-02-21] MEDS: METOPROLOL TARTRATE 25 MG TAB PEG SCH ×2 (08:24→21:01)
[2017-02-21] MEDS: VANCOMYCIN 500 MG VIAL (FOR ORAL USE ONLY) PEG SCH ×4 (08:24→21:01)
[2017-02-21] MEDS: SODIUM CHLORIDE 0.9% FLUSH 10 ML FLUSH IV FLUSH SCH ×2 (09:00→21:07)
--- NOTE | 2017-02-21 09:12 | HHI.PR ---
Subjective Remarks Follow-up visit C. difficile, status post craniotomy with clipping of complex aneurysm and placement of lumbar drain, HTN. Patient seen and examined today. Patient is sitting in the chair. Reports he is doing okay. States that he feels like he has some "Cotton stuck on my neck, I think when they put a tube in me, they have the cotton there." Patient is pointing on his neck incision post tracheostomy site. Discuss and explained with patient that it's possibly scar tissue from tracheostomy. Otherwise, denies pain and discomfort. Denies SOB/ dyspnea. Denies chest pain, palpitations, headaches, dizziness. Denies fevers, chills, n/v/d. Denies dysuria. Objective Vitals Vital Signs Date Time Temp Pulse Resp B/P Pulse Ox O2 Delivery O2 Flow Rate FiO2 02/21/17 08:00 97.7 84 20 138/74 94 02/21/17 04:00 97.6 86 18 130/81 94 02/21/17 00:00 97.9 80 18 130/80 95 02/20/17 22:00 72 02/20/17 20:00 97.6 80 18 123/75 96 02/20/17 19:00 93 02/20/17 16:00 97.7 89 18 118/73 98 I/O 02/20/17 02/20/17 02/20/17 02/21/17 02/21/17 02/21/17 07:00 15:00 23:00 07:00 15:00 23:00 Intake Total 120 ml 480 ml Balance 120 ml 480 ml Intake Oral 120 ml 480 ml # Voids 3 2 2 # Bowel Movements 2 2 Imaging Last Impressions Abdomen X-Ray 02/11/17 0600 Signed Impressions: Service Date/Time: Saturday, February 11, 2017 06:19 - CONCLUSION: No acute disease. Krystyna Kohli MD CT Angiography 02/11/17 0000 Signed Impressions: Service Date/Time: Saturday, February 11, 2017 15:04 - CONCLUSION: 1. Limited examination with visualization of the pulmonary arteries to the very proximal segmental level. No evidence for pulmonary embolism to the very proximal segmental level. 2. Mild bilateral posterior lower lobe airspace consolidation and associated trace bilateral pleural effusions. Differential considerations include aspiration versus atelectasis. Antoine Sumner MD Chest X-Ray 02/10/17 0000 Signed Impressions: Service Date/Time: Friday, February 10, 2017 19:32 - CONCLUSION: Patchy left lower lobe infiltrates. Segundo Hogan MD Objective Remarks GENERAL: This is a well-nourished, well-developed patient, in no apparent distress. SKIN: Warm and dry HEENT: Normocephalic. Incision site intact. Pupils equal and round. Nose without bleeding. Airway patent. NECK: Tracheostomy site closed. Scar tissue palpable. CARDIOVASCULAR: Regular rate and rhythm without murmurs, gallops, or rubs. RESPIRATORY: Clear to auscultation. Breath sounds equal bilaterally. No wheezes , rales, or rhonchi. GASTROINTESTINAL: Abdomen soft, non-tender, nondistended. Bowel Sounds normoactive x4. PEG in place. MUSCULOSKELETAL: Extremities without clubbing, cyanosis, or edema. NEUROLOGICAL: Awake and alert. Moves all extremities. Normal speech. Procedures Status post craniotomy and clipping of complex aneurysm and placement of lumbar drain 01/24/17 A/P Problem List: (1) Subarachnoid hemorrhage ICD Code: I60.9 Status: Acute (2) Dysphagia ICD Code: R13.10 Status: Acute Assessment and Plan 51-year-old white male admitted presented to [facility] 01/22/17 with a ruptured 3 mm Acom aneurysm, not amenable to coiling, was managed medically by neurosurgery. Patient was transferred to [facility]. He underwent craniotomy with clipping of complex aneurysm and placement of lumbar drain 01/24/[address] Aviles. He developed diarrhea and C diff was positive 01/26. He underwent 10 day course of flagyl 500 q8 po, completed 02/06/17. He underwent tracheostomy with 6.0 cuffed Shiley. He underwent PEG 02/03/[address] Machado and Ade. Transferred back to [facility]. Has weaned down on his O2 to RA, currently undergoing tx for C.diff and progressing with speech therapy as he is advancing his diet. s/p craniotomy with clipping of complex aneurysm and placement of lumbar drain by Dr. Aviles. at [facility] - Has scheduled out patient F/u Dr. Aviles 03/24/17 at 1pm. - PT/OT following. PT recommends acute rehab. - Ct ST for cognitive deficits Respiratory failure S/p trach removal - on RA - Tracheostomy site clean dry and intact. Close. Scar tissues palpable. Discuss with patient that what he might feeling with possibly be scar tissues from the tracheostomy site. He denies any shortness of breath or any respiratory issues. He has dysphasia but speech is following and now has been advanced to pure diet. HTN - Metoprolol 12.5 mg per tube every 12 hours. - lisinopril 5 mg daily - Vasotec when necessary - Monitor BP trend C. difficile diarrhea - Continue vancomycin course, clinically significantly improved - Stop date 02/26/17 - Continue Lactinex use TID Dysphagia - Pured diet per speech, speech following, tube feeds per media analytics manager, may decrease the more he enhances his diet intake. - Calorie count done. - Dietitian recommends Jevity 1.5 at 50 ML's an hour from 6 PM to 6 AM. Ensure live 3 times a day. Low-dose insulin sliding scale with bedside glucose every 6 hours. - Decrease to twice a day - Blood glucose within normal DVT prop heparin Discussed with patient, nursing, Dr. Gurrola Discharge Planning Plan to discharge to care home facility, or home with home health care. Patient and able to go to [facility] for acute rehabilitation secondary to insurance barriers. Andrea Calderon Feb 21, 2017 09:12
[2017-02-21] MEDS: HEPARIN SODIUM - SQ 10,000 UNITS/ML VIAL SQ SCH ×3 (10:03→21:01)
[2017-02-21] MEDS: LACTOBACILLUS ACIDOPHILUS 1 GM PACKET OG-TUBE SCH ×3 (10:03→17:34)
--- NOTE | 2017-02-21 10:20 | HHI.PR ---
Subjective Remarks 51 YOWM with RF, trach, s/p aneurysem clipping Awake, follows commands Tolerates solid food Doing well after decannulation. No new complaint Objective Vital Signs Vital Signs Date Time Temp Pulse Resp B/P Pulse Ox O2 Delivery O2 Flow Rate FiO2 02/21/17 08:00 97.7 84 20 138/74 94 02/21/17 04:00 97.6 86 18 130/81 94 02/21/17 00:00 97.9 80 18 130/80 95 02/20/17 22:00 72 02/20/17 20:00 97.6 80 18 123/75 96 02/20/17 19:00 93 02/20/17 16:00 97.7 89 18 118/73 98 I/O 02/20/17 02/20/17 02/20/17 02/21/17 02/21/17 02/21/17 07:00 15:00 23:00 07:00 15:00 23:00 Intake Total 120 ml 480 ml Balance 120 ml 480 ml Intake Oral 120 ml 480 ml # Voids 3 2 2 # Bowel Movements 2 2 Objective Remarks GENERAL: WBWN male, NAD SKIN: Warm and dry. HEAD: Normocephalic. EYES: No scleral icterus. No injection or drainage. NECK: Supple, trachea midline. No JVD or lymphadenopathy. CARDIOVASCULAR: Regular rate and rhythm without murmurs, gallops, or rubs. RESPIRATORY: Breath sounds equal bilaterally. No accessory muscle use. GASTROINTESTINAL: Abdomen soft, non-tender, nondistended. has PEG MUSCULOSKELETAL: No cyanosis, or edema. BACK: Nontender without obvious deformity. No CVA tenderness. A/P Assessment and Plan RF, S/P trach S/P Aneurysm clipping S/P PEG Pleural eff small PLAN: Aerosol nebs Stable after decannulation. Stable on Liam Oliva MD Feb 21, 2017 10:20
[2017-02-22] VITALS: BP 142/78; PULSE 94; RESP 18; TEMP 97.6; O2SAT 96
[2017-02-22] MEDS: CHLORHEXIDINE GLUCONATE 2 % 1 PACK (2 CLOTHS) TOP SCH (03:24)
[2017-02-22 04:00] VITALS: BP 121/64; PULSE 80; RESP 18; TEMP 97.9; O2SAT 95
[2017-02-22] MEDS: HEPARIN SODIUM - SQ 10,000 UNITS/ML VIAL SQ SCH ×3 (05:58→22:33)
[2017-02-22 08:00] VITALS: BP 124/82; PULSE 73; RESP 18; TEMP 97.8; O2SAT 94
[2017-02-22] MEDS: VANCOMYCIN 500 MG VIAL (FOR ORAL USE ONLY) PO SCH ×4 (08:48→22:32)
[2017-02-22] MEDS: METOPROLOL TARTRATE 25 MG TAB PO SCH ×2 (08:49→22:32)
[2017-02-22] MEDS: LISINOPRIL 5 MG TAB PO SCH (08:49)
[2017-02-22] MEDS ORDERED: LACTOBACILLUS ACIDOPHILUS 1 GM PACKET PO SCH (09:00)
[2017-02-22] MEDS: SODIUM CHLORIDE 0.9% FLUSH 10 ML FLUSH IV FLUSH SCH ×2 (09:00→22:31)
[2017-02-22] MEDS: INSULIN ASPART SUPPLEMENTAL SCALE SQ SCH ×2 (09:00→21:00)
--- NOTE | 2017-02-22 09:22 | HHI.PR ---
Subjective Remarks Follow-up visit C. difficile, status post craniotomy with clipping of complex aneurysm and placement of lumbar drain, HTN. Patient seen and examined today. States is doing well. Denies any diarrhea. Periods of confusion. Patient is asking when he said he going to come off of being restrained in bed. States "I don't want to be tied up or restrained." Discussed and explained with patient that he has been off restraints for quite some time now that he is now to get out of bed and ambulate in his room as well as he asks someone for help. He is not on any restraints. Denies pain or discomfort, denies chest pain, palpitations, dizziness, headaches. Denies fevers, chills, nausea, vomiting, diarrhea. Objective Vitals Vital Signs Date Time Temp Pulse Resp B/P Pulse Ox O2 Delivery O2 Flow Rate FiO2 02/22/17 08:00 97.8 73 18 124/82 94 02/22/17 04:00 97.9 80 18 121/64 95 02/22/17 00:00 97.6 94 18 142/78 96 02/21/17 20:00 98.1 79 18 109/59 97 02/21/17 16:40 70 02/21/17 16:00 97.4 93 20 130/73 94 02/21/17 11:42 98.7 83 18 125/81 93 I/O 02/21/17 02/21/17 02/21/17 02/22/17 02/22/17 02/22/17 07:00 15:00 23:00 07:00 15:00 23:00 Intake Total 1116 ml 1358 ml Output Total 300 ml 400 ml Balance 816 ml 958 ml Intake Oral 240 ml 600 ml Tube Feeding 846 ml 728 ml Tube Irrigant 30 ml 30 ml Output Urine Total 300 ml 400 ml # Voids 3 2 2 # Bowel Movements 0 0 1 Imaging Last Impressions Abdomen X-Ray 02/11/17 0600 Signed Impressions: Service Date/Time: Saturday, February 11, 2017 06:19 - CONCLUSION: No acute disease. Krystyna Kohli MD CT Angiography 02/11/17 0000 Signed Impressions: Service Date/Time: Saturday, February 11, 2017 15:04 - CONCLUSION: 1. Limited examination with visualization of the pulmonary arteries to the very proximal segmental level. No evidence for pulmonary embolism to the very proximal segmental level. 2. Mild bilateral posterior lower lobe airspace consolidation and associated trace bilateral pleural effusions. Differential considerations include aspiration versus atelectasis. Antoine Sumner MD Chest X-Ray 02/10/17 0000 Signed Impressions: Service Date/Time: Friday, February 10, 2017 19:32 - CONCLUSION: Patchy left lower lobe infiltrates. Segundo Hogan MD Objective Remarks GENERAL: This is a well-nourished, well-developed patient, in no apparent distress. SKIN: Warm and dry. Lumbar area suture CDI. HEENT: Normocephalic. Incision site intact. Pupils equal and round. Nose without bleeding. Airway patent. NECK: Tracheostomy site closed. Scar tissue palpable. CARDIOVASCULAR: Regular rate and rhythm without murmurs, gallops, or rubs. RESPIRATORY: Clear to auscultation. Breath sounds equal bilaterally. No wheezes , rales, or rhonchi. GASTROINTESTINAL: Abdomen soft, non-tender, nondistended. Bowel Sounds normoactive x4. PEG in place. MUSCULOSKELETAL: Extremities without clubbing, cyanosis, or edema. NEUROLOGICAL: Awake and alert. Periods of confusion. Oriented to self. Moves all extremities. Normal speech. Procedures Status post craniotomy and clipping of complex aneurysm and placement of lumbar drain 01/24/17 A/P Problem List: (1) Subarachnoid hemorrhage ICD Code: I60.9 Status: Acute (2) Dysphagia ICD Code: R13.10 Status: Acute Assessment and Plan 51-year-old white male admitted presented to [facility] 01/22/17 with a ruptured 3 mm Acom aneurysm, not amenable to coiling, was managed medically by neurosurgery. Patient was transferred to [facility]. He underwent craniotomy with clipping of complex aneurysm and placement of lumbar drain 01/24/[address] Aviles. He developed diarrhea and C diff was positive 01/26. He underwent 10 day course of flagyl 500 q8 po, completed 02/06/17. He underwent tracheostomy with 6.0 cuffed Shiley. He underwent PEG 02/03/[address] Machado and Ade. Transferred back to [facility]. Has weaned down on his O2 to RA, currently undergoing tx for C.diff and progressing with speech therapy as he is advancing his diet. s/p craniotomy with clipping of complex aneurysm and placement of lumbar drain by Dr. Aviles. at [facility] - Has scheduled out patient F/u Dr. Aviles 03/24/17 at 1pm. - PT/OT following. PT recommends acute rehab. - Continue with ST for cognitive deficits - DC suture lumbar area. Site is healed. - Continue reorientation. Can be impulsive at times. Respiratory failure S/p trach removal - On room air - Tracheostomy site clean dry and intact. Close. Scar tissues palpable. Discuss with patient that what he might feeling with possibly be scar tissues from the tracheostomy site. He denies any shortness of breath or any respiratory issues. He has dysphasia but speech is following and now has been advanced to pure diet. HTN - Metoprolol 12.5 mg per tube every 12 hours. - lisinopril 5 mg daily - Vasotec when necessary - Monitor BP trend C. difficile diarrhea - Continue vancomycin course, clinically significantly improved - Stop date 02/26/17 - Continue Lactinex use TID Dysphagia - Speech Therapy last note, Diet consistency REGULAR. - Has been eating regular diet almost 100% daily as per RN. Off Tube feeds. Calorie count done. - Possible discontinuation of PEG Low-dose insulin sliding scale with bedside glucose - Decrease to twice a day - Blood glucose within normal DVT prop heparin Discussed with patient, nursing, Dr. Gurrola Discharge Planning Plan to discharge to correction facility, or home with home health care. Patient and able to go to [facility] for acute rehabilitation secondary to insurance barriers. Andrea Calderon Feb 22, 2017 09:22
[2017-02-22 12:00] VITALS: BP 134/80; PULSE 88; RESP 18; O2SAT 99
[2017-02-22] MEDS: LACTOBACILLUS ACIDOPHILUS TAB PO SCH ×2 (13:15→17:12)
--- NOTE | 2017-02-22 13:56 | HHI.PR ---
Subjective Remarks 51 YOWM with RF, trach, s/p aneurysem clipping Awake, follows commands Tolerates solid food Doing well after decannulation. No new complaint No fever Objective Vital Signs Vital Signs Date Time Temp Pulse Resp B/P Pulse Ox O2 Delivery O2 Flow Rate FiO2 02/22/17 12:00 88 18 134/80 99 02/22/17 08:00 97.8 73 18 124/82 94 02/22/17 04:00 97.9 80 18 121/64 95 02/22/17 00:00 97.6 94 18 142/78 96 02/21/17 20:00 98.1 79 18 109/59 97 02/21/17 16:40 70 02/21/17 16:00 97.4 93 20 130/73 94 I/O 02/21/17 02/21/17 02/21/17 02/22/17 02/22/17 02/22/17 07:00 15:00 23:00 07:00 15:00 23:00 Intake Total 1116 ml 1358 ml Output Total 300 ml 400 ml Balance 816 ml 958 ml Intake Oral 240 ml 600 ml Tube Feeding 846 ml 728 ml Tube Irrigant 30 ml 30 ml Output Urine Total 300 ml 400 ml # Voids 3 2 2 # Bowel Movements 0 0 1 Objective Remarks GENERAL: WBWN male, NAD SKIN: Warm and dry. HEAD: Normocephalic. EYES: No scleral icterus. No injection or drainage. NECK: Supple, trachea midline. No JVD or lymphadenopathy. CARDIOVASCULAR: Regular rate and rhythm without murmurs, gallops, or rubs. RESPIRATORY: Breath sounds equal bilaterally. No accessory muscle use. GASTROINTESTINAL: Abdomen soft, non-tender, nondistended. has PEG MUSCULOSKELETAL: No cyanosis, or edema. BACK: Nontender without obvious deformity. No CVA tenderness. A/P Assessment and Plan RF, S/P trach S/P Aneurysm clipping S/P PEG Pleural eff small PLAN: Aerosol nebs Stable after decannulation. Stable on Liam Oliva MD Feb 22, 2017 13:56
[2017-02-22 16:00] VITALS: BP 129/81; PULSE 85; RESP 16; TEMP 97.7; O2SAT 95
[2017-02-22 19:46] VITALS: BP 121/63; PULSE 84; RESP 18; TEMP 97.5; O2SAT 96
[2017-02-23] VITALS (7 sets, daily range): BP systolic 124–139; BP diastolic 65–88; PULSE 72–93; RESP 16–20; TEMP 97.2–97.8; O2SAT 96–98
[2017-02-23] MEDS: CHLORHEXIDINE GLUCONATE 2 % 1 PACK (2 CLOTHS) TOP SCH (04:00)
[2017-02-23] MEDS: HEPARIN SODIUM - SQ 10,000 UNITS/ML VIAL SQ SCH ×3 (05:29→21:45)
[2017-02-23] MEDS: INSULIN ASPART SUPPLEMENTAL SCALE SQ SCH ×2 (09:00→21:00)
[2017-02-23] MEDS: LACTOBACILLUS ACIDOPHILUS TAB PO SCH ×3 (09:12→18:11)
[2017-02-23] MEDS: SODIUM CHLORIDE 0.9% FLUSH 10 ML FLUSH IV FLUSH SCH ×2 (09:18→21:44)
[2017-02-23] MEDS: METOPROLOL TARTRATE 25 MG TAB PO SCH ×2 (09:18→21:44)
[2017-02-23] MEDS: LISINOPRIL 5 MG TAB PO SCH (09:18)
[2017-02-23] MEDS: VANCOMYCIN 500 MG VIAL (FOR ORAL USE ONLY) PO SCH ×4 (09:19→21:44)
--- NOTE | 2017-02-23 09:42 | HHI.PR ---
Subjective Remarks Follow-up visit C. difficile, status post craniotomy with clipping of complex aneurysm and placement of lumbar drain, HTN. Patient seen and examined today. She states he is doing okay. Nursing is requesting for patient to shower. Patient denies any diarrhea. More coherent today. Denies pain or discomfort, chest pain, palpitations, dizziness, headaches. Denies fevers, chills, nausea, vomiting. Objective Vitals Vital Signs Date Time Temp Pulse Resp B/P Pulse Ox O2 Delivery O2 Flow Rate FiO2 02/23/17 09:19 86 139/88 02/23/17 08:07 97.2 81 18 132/74 96 02/23/17 04:00 97.6 72 18 127/68 97 02/23/17 00:00 97.2 78 18 124/65 96 02/22/17 19:46 97.5 84 18 121/63 96 02/22/17 16:00 97.7 85 16 129/81 95 02/22/17 12:00 88 18 134/80 99 I/O 02/22/17 02/22/17 02/22/17 02/23/17 02/23/17 02/23/17 07:00 15:00 23:00 07:00 15:00 23:00 Intake Total 1358 ml 240 ml Output Total 400 ml Balance 958 ml 240 ml Intake Oral 600 ml 240 ml Tube Feeding 728 ml Tube Irrigant 30 ml Output Urine Total 400 ml # Voids 2 1 2 # Bowel Movements 1 0 Imaging Last Impressions Abdomen X-Ray 02/11/17 0600 Signed Impressions: Service Date/Time: Saturday, February 11, 2017 06:19 - CONCLUSION: No acute disease. Krystyna Kohli MD CT Angiography 02/11/17 0000 Signed Impressions: Service Date/Time: Saturday, February 11, 2017 15:04 - CONCLUSION: 1. Limited examination with visualization of the pulmonary arteries to the very proximal segmental level. No evidence for pulmonary embolism to the very proximal segmental level. 2. Mild bilateral posterior lower lobe airspace consolidation and associated trace bilateral pleural effusions. Differential considerations include aspiration versus atelectasis. Antoine Sumner MD Chest X-Ray 02/10/17 0000 Signed Impressions: Service Date/Time: Friday, February 10, 2017 19:32 - CONCLUSION: Patchy left lower lobe infiltrates. Segundo Hogan MD Objective Remarks GENERAL: This is a well-nourished, well-developed patient, in no apparent distress. SKIN: Warm and dry. Lumbar area suture CDI. HEENT: Normocephalic. Incision site intact. Pupils equal and round. Nose without bleeding. Airway patent. NECK: Tracheostomy site closed. Scar tissue palpable. CARDIOVASCULAR: Regular rate and rhythm without murmurs, gallops, or rubs. RESPIRATORY: Clear to auscultation. Breath sounds equal bilaterally. No wheezes , rales, or rhonchi. GASTROINTESTINAL: Abdomen soft, non-tender, nondistended. Bowel Sounds normoactive x4. PEG in place. MUSCULOSKELETAL: Extremities without clubbing, cyanosis, or edema. NEUROLOGICAL: Awake and alert. Periods of confusion. Oriented to self. Moves all extremities. Normal speech. Procedures Status post craniotomy and clipping of complex aneurysm and placement of lumbar drain 01/24/17 A/P Problem List: (1) Subarachnoid hemorrhage ICD Code: I60.9 Status: Acute (2) Dysphagia ICD Code: R13.10 Status: Acute Assessment and Plan 51-year-old white male admitted presented to [facility] 01/22/17 with a ruptured 3 mm Acom aneurysm, not amenable to coiling, was managed medically by neurosurgery. Patient was transferred to [facility]. He underwent craniotomy with clipping of complex aneurysm and placement of lumbar drain 01/24/[address] Aviles. He developed diarrhea and C diff was positive 01/26. He underwent 10 day course of flagyl 500 q8 po, completed 02/06/17. He underwent tracheostomy with 6.0 cuffed Shiley. He underwent PEG 02/03/[address] Machado and Ade. Transferred back to [facility]. Has weaned down on his O2 to RA, currently undergoing tx for C.diff and progressing with speech therapy as he is advancing his diet. s/p craniotomy with clipping of complex aneurysm and placement of lumbar drain by Dr. Aviles. at [facility] - Has scheduled out patient F/u Dr. Aviles 03/24/17 at 1pm. - PT/OT following. PT recommends acute rehab. - Continue with ST for cognitive deficits - DC suture lumbar area. Site is healed. - Continue reorientation. Can be impulsive at times. Respiratory failure S/p trach removal - On room air - Tracheostomy site clean dry and intact. Close. Scar tissues palpable. Discuss with patient that what he might feeling with possibly be scar tissues from the tracheostomy site. He denies any shortness of breath or any respiratory issues. He has dysphasia but speech is following and now has been advanced to pure diet. HTN - Metoprolol 12.5 mg per tube every 12 hours. - lisinopril 5 mg daily - Vasotec when necessary - Monitor BP trend C. difficile diarrhea - Continue vancomycin course, clinically significantly improved - Stop date 02/26/17 - Continue Lactinex use TID Dysphagia - Speech Therapy last note, Diet consistency REGULAR. - Has been eating regular diet almost 100% daily as per RN. Off Tube feeds. Calorie count done. - RD recommended okay for PEG to be discontinued as patient is now meeting caloric intake. Continue with supplements in his tray. - Will DC PEG tube. Consult GI to DC PEG. Low-dose insulin sliding scale with bedside glucose - Decrease to twice a day - Blood glucose within normal DVT prop heparin Discussed with patient, nursing, Dr. Gurrola Discharge Planning Plan to discharge to [facility], or home with home health care. Patient and able to go to [facility] for acute rehabilitation secondary to insurance barriers. Andrea Calderon Feb 23, 2017 09:42
[2017-02-23] MEDS: ACETAMINOPHEN 325 MG TAB PO PRN (10:27)
--- NOTE | 2017-02-23 15:57 | PD.CONS ---
HPI History of Present Illness This is a 51 year old male who presented to [facility] on (01/22/17) with a ruptured aneurysm. Angiogram was performed but was not amenable to endovascular coil and he was subsequently transferred to [facility], where he underwent a craniotomy with clipping of complex aneurysm and placement of lumbar drain (01/24/17). His hospitalization was complicated by the development of CDiff colitis and he was treated with a 10 course day of Flagyl (completed on 02/06), now on oral vancomycin. He also underwent tracheostomy (02/04/17) and PEG tube placement (02/03/17). He was then weaned to T. Piece and transferred back to [facility] on 02/10/17. He is now on the neurological floor. Speech therapy had been following the patient and has recommended a regular diet. According to the EMRs, he is off his tube feeding and eating almost 100% daily. A calorie count was done and the senior c web developer said that it was okay for the PEG tube to be removed, as he is now meeting his caloric intake. GI has been consulted for removal of peg. He tells me he is eating well without any difficulty swallowing. He denies any nausea/vomiting/abdominal pain. His diarrhea has improved and he is now having formed stool. There is no GI bleeding. (Mandi Wells) PFSH Past Medical History HTN Aneurysm Recent hx of respiratory failure Recent hx of Cdiff colitis Recent hx of dysphagia Past Surgical History Inguinal hernia repair Craniotomy with clipping of complex aneurysm and placement of lumbar drain (01/24 Tracheostomy (02/04/17) PEG tube placement (02/03/17) (Mandi Wells) Coded Allergies: No Known Allergies (Unverified , 01/22/17) Medications Allergies Coded Allergies Type Severity Reaction Last Updated Verified No Known Allergies 01/22/17 No Active Scripts Medications Dose Route/Sig Days Date Category No Active Prescriptions or Reported Medications Rx Family History Noncontributory Social History Former smoker Was drinking beer daily prior to this hospitalization Remote history of prescription pill and cocaine use (Mandi Wells) Review of Systems Constitutional: DENIES: Fatigue, Fever, Chills Respiratory: COMPLAINS OF: Cough, DENIES: Shortness of breath Gastrointestinal: DENIES: Abdominal pain, Black stools, Bloody stools, Constipation, Diarrhea (resolved), Nausea, Vomiting, Difficulty Swallowing, Anorexia, Swelling of Abdomen Integumentary: DENIES: Abnormal pigmentation, Rash Hematologic/lymphatic: DENIES: Bruising Psychiatric: DENIES: Confusion ROS generalized weakness (Mandi Wells) GI Exam Vitals I&O Vital Signs Date Time Temp Pulse Resp B/P Pulse Ox O2 Delivery O2 Flow Rate FiO2 02/23/17 12:22 97.4 82 18 134/86 98 02/23/17 09:19 86 139/88 02/23/17 08:07 97.2 81 18 132/74 96 02/23/17 04:00 97.6 72 18 127/68 97 02/23/17 00:00 97.2 78 18 124/65 96 02/22/17 19:46 97.5 84 18 121/63 96 02/22/17 16:00 97.7 85 16 129/81 95 I/O 02/22/17 02/22/17 02/22/17 02/23/17 02/23/17 02/23/17 07:00 15:00 23:00 07:00 15:00 23:00 Intake Total 1358 ml 240 ml 720 ml Output Total 400 ml Balance 958 ml 240 ml 720 ml Intake Oral 600 ml 240 ml 720 ml Tube Feeding 728 ml Tube Irrigant 30 ml Output Urine Total 400 ml # Voids 2 1 2 6 # Bowel Movements 1 0 1 Imaging Last Impressions Abdomen X-Ray 02/11/17 0600 Signed Impressions: Service Date/Time: Saturday, February 11, 2017 06:19 - CONCLUSION: No acute disease. Krystyna Kohli MD CT Angiography 02/11/17 0000 Signed Impressions: Service Date/Time: Saturday, February 11, 2017 15:04 - CONCLUSION: 1. Limited examination with visualization of the pulmonary arteries to the very proximal segmental level. No evidence for pulmonary embolism to the very proximal segmental level. 2. Mild bilateral posterior lower lobe airspace consolidation and associated trace bilateral pleural effusions. Differential considerations include aspiration versus atelectasis. Antoine Sumner MD Chest X-Ray 02/10/17 0000 Signed Impressions: Service Date/Time: Friday, February 10, 2017 19:32 - CONCLUSION: Patchy left lower lobe infiltrates. Segundo Hogan MD Physical Examination HEENT: Normocephalic; atraumatic; no jaundice. CHEST: Resp even/unlabored. CARDIAC: RRR ABDOMEN: Soft, nondistended, nontender; no hepatosplenomegaly; bowel sounds are present in all four quadrants. Gastrostomy tube site without redness or swelling EXTREMITIES: No clubbing, cyanosis, or edema. SKIN: Normal; no rash; no jaundice. PENCIL SORTER: Alert and oriented times three, generalized weakness (Mandi Wells) Assessment and Plan Plan ASSESSMENT: - Consulted for PEG tube removal. Pt came to ER with ruptured aneurysm (01/22). He was then tx to [facility] and underwent craniotomy with clipping of complex aneurysm and placement of lumbar drain (01/24/17). S/P tracheostomy (02/04/17) and PEG tube placement (02/03/17). He was then weaned to T. Piece and transferred back to [facility] on 02/10/17. He is now on the neurological floor and his trach has been removed. ST has recommended regular diet. S/P calorie count, eating almost 100% daily, okay with senior c web developer to remove PEG. No n/v/ dysphagia. No abdominal pain. Deflated 20cc from gastrostomy tube balloon and this was removed without difficulty. Tolerated well. - CDiff, s/p flagyl, now on oral vanco. Improved, states he is having formed stool. - Ruptured aneurysm. Was not amenable to coiling at this facility. S/P craniotomy with clipping at [facility]. Was tx back on 02/10. PLAN: - S/P removal of gastrostomy tube without difficulty - NPO for 2 hours, d/w patient and nurse - Regular diet with ensure supplement - GI will sign off, please reconsult as needed - Pt seen and examined by Dr. Núñez and myself and this note is written on his behalf (Mandi Wells) Physician Comments Patient seen and examined Agree with above Continue with current supportive care Monitor labs Patient had respiratory failure and dysphagia secondary to ruptured aneurysm he has recovered well and does not require long-term nutritional access therefore the PEG tube was removed (Wilton,Francisco El-sayed Mandi Somers Feb 23, 2017 15:57 Francisco Núñez MD Feb 23, 2017 22:27
--- NOTE | 2017-02-23 19:06 | HHI.PR ---
Subjective Remarks 51 YOWM with RF, trach, s/p aneurysem clipping Awake, follows commands Tolerates solid food Doing well after decannulation. No new complaint Objective Vital Signs Vital Signs Date Time Temp Pulse Resp B/P Pulse Ox O2 Delivery O2 Flow Rate FiO2 02/23/17 16:10 97.3 92 20 135/79 98 02/23/17 12:22 97.4 82 18 134/86 98 02/23/17 09:19 86 139/88 02/23/17 08:07 97.2 81 18 132/74 96 02/23/17 04:00 97.6 72 18 127/68 97 02/23/17 00:00 97.2 78 18 124/65 96 02/22/17 19:46 97.5 84 18 121/63 96 I/O 02/22/17 02/22/17 02/22/17 02/23/17 02/23/17 02/23/17 07:00 15:00 23:00 07:00 15:00 23:00 Intake Total 1358 ml 240 ml 720 ml Output Total 400 ml Balance 958 ml 240 ml 720 ml Intake Oral 600 ml 240 ml 720 ml Tube Feeding 728 ml Tube Irrigant 30 ml Output Urine Total 400 ml # Voids 2 1 2 6 1 # Bowel Movements 1 0 1 Objective Remarks GENERAL: WBWN male, NAD SKIN: Warm and dry. HEAD: Normocephalic. EYES: No scleral icterus. No injection or drainage. NECK: Supple, trachea midline. No JVD or lymphadenopathy. CARDIOVASCULAR: Regular rate and rhythm without murmurs, gallops, or rubs. RESPIRATORY: Breath sounds equal bilaterally. No accessory muscle use. GASTROINTESTINAL: Abdomen soft, non-tender, nondistended. has PEG MUSCULOSKELETAL: No cyanosis, or edema. BACK: Nontender without obvious deformity. No CVA tenderness. A/P Assessment and Plan RF, S/P trach S/P Aneurysm clipping S/P PEG Pleural eff small PLAN: Aerosol nebs Stable after decannulation. Stable on RA Stable from pulm standpoint. Liam Jacobo MD Feb 23, 2017 19:06
[2017-02-24] MEDS: CHLORHEXIDINE GLUCONATE 2 % 1 PACK (2 CLOTHS) TOP SCH (04:00)
[2017-02-24] MEDS: HEPARIN SODIUM - SQ 10,000 UNITS/ML VIAL SQ SCH ×3 (05:51→20:44)
[2017-02-24 08:08] VITALS: BP 130/79; PULSE 77; RESP 18; TEMP 97.6; O2SAT 96
[2017-02-24] MEDS: LISINOPRIL 5 MG TAB PO SCH (08:59)
[2017-02-24] MEDS: LACTOBACILLUS ACIDOPHILUS TAB PO SCH ×3 (08:59→18:33)
[2017-02-24] MEDS: METOPROLOL TARTRATE 25 MG TAB PO SCH ×2 (08:59→20:45)
[2017-02-24] MEDS: INSULIN ASPART SUPPLEMENTAL SCALE SQ SCH ×2 (09:00→20:45)
[2017-02-24] MEDS: SODIUM CHLORIDE 0.9% FLUSH 10 ML FLUSH IV FLUSH SCH ×2 (09:00→20:45)
[2017-02-24] MEDS: VANCOMYCIN 500 MG VIAL (FOR ORAL USE ONLY) PO SCH ×4 (09:00→20:44)
[2017-02-24 11:58] VITALS: BP 138/85; PULSE 93; RESP 18; TEMP 97.2; O2SAT 99
[2017-02-24] MEDS: ACETAMINOPHEN 325 MG TAB PO PRN (13:14)
--- NOTE | 2017-02-24 14:27 | HHI.PR ---
Subjective Remarks Follow-up visit C. difficile, status post craniotomy with clipping of complex aneurysm and placement of lumbar drain, HTN. Patient seen and examined today. Patient complains of not sleeping well last night. States he was up from midnight to 4 AM. Otherwise he has no acute medical complaints. Denies any headache or dizziness. Denies any chest pain or shortness of breath. Denies any fever or chills. Denies any nausea, vomiting or abdominal pain. Denies any diarrhea. Objective Vitals Vital Signs Date Time Temp Pulse Resp B/P Pulse Ox O2 Delivery O2 Flow Rate FiO2 02/24/17 11:58 97.2 93 18 138/85 99 02/24/17 08:08 97.6 77 18 130/79 96 02/23/17 20:07 97.8 93 16 138/80 96 02/23/17 16:10 97.3 92 20 135/79 98 I/O 02/23/17 02/23/17 02/23/17 02/24/17 02/24/17 02/24/17 06:59 14:59 22:59 06:59 14:59 22:59 Intake Total 720 ml Balance 720 ml Intake Oral 720 ml # Voids 2 6 1 # Bowel Movements 1 Imaging Last Impressions Abdomen X-Ray 02/11/17 0600 Signed Impressions: Service Date/Time: Saturday, February 11, 2017 06:19 - CONCLUSION: No acute disease. Krystyna Kohli MD CT Angiography 02/11/17 0000 Signed Impressions: Service Date/Time: Saturday, February 11, 2017 15:04 - CONCLUSION: 1. Limited examination with visualization of the pulmonary arteries to the very proximal segmental level. No evidence for pulmonary embolism to the very proximal segmental level. 2. Mild bilateral posterior lower lobe airspace consolidation and associated trace bilateral pleural effusions. Differential considerations include aspiration versus atelectasis. Antoine Sumner MD Chest X-Ray 02/10/17 0000 Signed Impressions: Service Date/Time: Friday, February 10, 2017 19:32 - CONCLUSION: Patchy left lower lobe infiltrates. Segundo Hogan MD Objective Remarks GENERAL: This is a well-nourished, well-developed patient, in no apparent distress. Awake and alert. SKIN: Warm and dry. HEENT: Normocephalic. Incision site intact. Pupils equal and round. Nose without bleeding. Airway patent. NECK: Tracheostomy site closed. Scar tissue palpable. CARDIOVASCULAR: Regular rate and rhythm without murmurs, gallops, or rubs. RESPIRATORY: Clear to auscultation. Breath sounds equal bilaterally. No wheezes , rales, or rhonchi. GASTROINTESTINAL: Abdomen soft, non-tender, nondistended. Bowel Sounds normoactive x4. PEG removed. Previous site closed with mild erythema. MUSCULOSKELETAL: Extremities without clubbing, cyanosis, or edema. NEUROLOGICAL: Awake and alert. Periods of confusion. Oriented to self. Moves all extremities. Normal speech. Procedures Status post craniotomy and clipping of complex aneurysm and placement of lumbar drain 01/24/17 Medications and IVs Current Medications Medications (Trade) Dose Ordered Sig/Marleni Route Start Time Stop Time Status Last Admin (NS Flush) 2 ml UNSCH PRN IV FLUSH 02/10/17 19:15 02/12/17 13:18 (NS Flush) 2 ml BID IV FLUSH 02/10/17 21:00 02/24/17 09:00 (Zofran Inj) 4 mg Q6H PRN IV 02/10/17 19:15 02/11/17 02:51 Miscellaneous Information 1 Q361D XX 02/10/17 19:15 (Chlorhexidine 2% Cloth) Taper DAILY@04 TOP 02/11/17 04:00 02/07/18 03:59 (Milk Of Magnesia Liq) 30 ml Q12H PRN PO 02/10/17 19:15 (Senokot) 17.2 mg Q12H PRN PO 02/10/17 19:15 (Dulcolax Supp) 10 mg DAILY PRN RECTAL 02/10/17 19:15 (Lactulose Liq) 30 ml DAILY PRN PO 02/10/17 19:15 (Heparin Inj) 5,000 units Q8HR SQ 02/10/17 22:00 02/24/17 13:14 (Vasotec Inj) 1.25 mg Q6H PRN IV PUSH 02/14/17 16:30 02/14/17 17:00 (Prinivil) 5 mg DAILY PO 02/15/17 13:30 02/24/17 08:59 (Tylenol) 650 mg Q6H PRN PO 02/18/17 01:15 02/24/17 13:14 (NovoLOG SUPPLEMENTAL SCALE) 1 BID SQ 02/21/17 21:00 (Lopressor) 12.5 mg Q12HR PO 02/22/17 09:00 02/24/17 08:59 (VANCOMYCIN for oral use only) 125 mg QID PO 02/22/17 09:00 02/26/17 17:59 02/24/17 13:13 (Lactinex) 1 tab TID PO 02/22/17 13:00 02/24/17 13:14 A/P Problem List: (1) Subarachnoid hemorrhage ICD Code: I60.9 Status: Acute (2) Dysphagia ICD Code: R13.10 Status: Acute Assessment and Plan 51-year-old white male admitted presented to [facility] 01/22/17 with a ruptured 3 mm Acom aneurysm, not amenable to coiling, was managed medically by neurosurgery. Patient was transferred to [facility]. He underwent craniotomy with clipping of complex aneurysm and placement of lumbar drain 01/24/[address] Aviles. He developed diarrhea and C diff was positive 01/26. He underwent 10 day course of flagyl 500 q8 po, completed 02/06/17. He underwent tracheostomy with 6.0 cuffed Shiley. He underwent PEG 02/03/[address] Machado and Ade. Transferred back to [facility]. Has weaned down on his O2 to RA, currently undergoing tx for C.diff and progressing with speech therapy as he is advancing his diet. s/p craniotomy with clipping of complex aneurysm and placement of lumbar drain by Dr. Aviles. at [facility] - Has scheduled outpatient F/u Dr. Aviles 03/24/17 at 1pm. - PT/OT following. - Continue with ST for cognitive deficits - Continue reorientation. Can be impulsive at times. Respiratory failure S/p trach removal - On room air - Tracheostomy site clean dry and intact. Closed. HTN - controlled - continue Metoprolol 12.5 mg per tube every 12 hours and Lisinopril 5 mg daily - Vasotec when necessary - Monitor BP trend C. difficile diarrhea - Continue vancomycin course, clinically improved - Stop date 02/26/17 - Continue Lactinex use TID Dysphagia - Speech Therapy last note, Diet consistency REGULAR. - Has been eating regular diet almost 100% daily as per RN. Calorie count done. - RD recommended okay for PEG to be discontinued as patient is now meeting caloric intake. Continue with supplements in his tray. - PEG removed. Site closed. Low-dose insulin sliding scale with bedside glucose - Decrease to twice a day - Blood glucose within normal Insomnia - trial Melatonin DVT prop heparin Discussed with patient, nursing, Dr. Gurrola Discharge Planning Plan for discharge tomorrow home with [facility]. Patient unable to go to [facility] for acute inpatient rehabilitation due to insurance barriers. Terri Yung Feb 24, 2017 14:27
[2017-02-24] MEDS ORDERED: MELATONIN 5 MG TAB PO PRN (16:00)
--- NOTE | 2017-02-24 19:26 | HHI.PR ---
Subjective Remarks 51 YOWM with RF, trach, s/p aneurysem clipping Awake, follows commands Tolerates solid food No new complaint Objective Vital Signs Vital Signs Date Time Temp Pulse Resp B/P Pulse Ox O2 Delivery O2 Flow Rate FiO2 02/24/17 11:58 97.2 93 18 138/85 99 02/24/17 08:08 97.6 77 18 130/79 96 02/23/17 20:07 97.8 93 16 138/80 96 I/O 02/23/17 02/23/17 02/23/17 02/24/17 02/24/17 02/24/17 07:00 15:00 23:00 07:00 15:00 23:00 Intake Total 720 ml 960 ml Balance 720 ml 960 ml Intake Oral 720 ml 960 ml # Voids 2 6 1 2 # Bowel Movements 1 1 Objective Remarks GENERAL: WBWN male, NAD SKIN: Warm and dry. HEAD: Normocephalic. EYES: No scleral icterus. No injection or drainage. NECK: Supple, trachea midline. No JVD or lymphadenopathy. CARDIOVASCULAR: Regular rate and rhythm without murmurs, gallops, or rubs. RESPIRATORY: Breath sounds equal bilaterally. No accessory muscle use. GASTROINTESTINAL: Abdomen soft, non-tender, nondistended. has PEG MUSCULOSKELETAL: No cyanosis, or edema. BACK: Nontender without obvious deformity. No CVA tenderness. A/P Assessment and Plan RF, S/P trach S/P Aneurysm clipping S/P PEG Pleural eff small PLAN: Aerosol nebs Stable after decannulation. Stable on RA Stable from pulm standpoint. Liam Jacobo MD Feb 24, 2017 19:26
[2017-02-24 20:11] VITALS: BP 128/71; PULSE 73; RESP 20; TEMP 97.4; O2SAT 97
[2017-02-25] VITALS: BP 158/89; PULSE 79; RESP 20; TEMP 98.2; O2SAT 97
[2017-02-25] MEDS: CHLORHEXIDINE GLUCONATE 2 % 1 PACK (2 CLOTHS) TOP SCH (03:14)
[2017-02-25 04:08] VITALS: BP 120/74; PULSE 81; RESP 21; TEMP 98.4; O2SAT 96
[2017-02-25] MEDS: HEPARIN SODIUM - SQ 10,000 UNITS/ML VIAL SQ SCH (05:38)
[2017-02-25] MEDS: LACTOBACILLUS ACIDOPHILUS TAB PO SCH (07:49)
[2017-02-25] MEDS: VANCOMYCIN 500 MG VIAL (FOR ORAL USE ONLY) PO SCH (07:49)
[2017-02-25] MEDS: METOPROLOL TARTRATE 25 MG TAB PO SCH (07:50)
[2017-02-25] MEDS: LISINOPRIL 5 MG TAB PO SCH (07:50)
[2017-02-25] MEDS: SODIUM CHLORIDE 0.9% FLUSH 10 ML FLUSH IV FLUSH SCH (07:50)
[2017-02-25 08:24] VITALS: BP 133/86; PULSE 78; RESP 18; TEMP 97.6; O2SAT 96
[2017-02-25] MEDS: INSULIN ASPART SUPPLEMENTAL SCALE SQ SCH (09:00)
[2017-02-25] MEDS ORDERED: LISI-519 PO (11:24)
[2017-02-25] MEDS ORDERED: METO25TA3 PO (11:24)
[2017-02-25] MEDS ORDERED: LACT PO (11:24)
[2017-02-25] MEDS ORDERED: VANC500I3 PO (11:24)
--- NOTE | 2017-02-25 11:36 | HHI.FF ---
Face to Face Verification Diagnosis: (1) Subarachnoid hemorrhage (2) Dysphagia (3) Hypertension (4) C. difficile diarrhea (5) Respiratory failure (6) Cognitive and behavioral changes Physical Therapy Order: Evaluate and Treat, Improve ambulation, Strength and gait training Home Health Nursing Order: Medical education Signs/symptoms of disease process Medication education-adverse effect Home Health Aide Order: To Assist In: Bathing and personal care, bag making machine tender and meal prep I have seen patient Yasir Black on 02/25/17. My clinical findings support the need for the requested home health care services because: Ltd mobility - disease progression Deconditioned w/ increased weakness Med compliance is questionable Limited ability to care for self Impaired cognition/judgement High risk of falls I certify that my clinical findings support that this patient is homebound because: Impaired cognitive ability/safety Unsteady gait/balance Unsafe to leave home unassisted Unable to use public transportation Terri Yung Feb 25, 2017 11:36
--- NOTE | 2017-02-25 11:38 | HHI.DCPOC ---
Discharge Care Plan Diagnosis: (1) Subarachnoid hemorrhage (2) Dysphagia (3) Respiratory failure (4) Hypertension (5) C. difficile diarrhea (6) Cognitive and behavioral changes Goals to Promote Your Health * To prevent worsening of your condition and complications * To maintain your health at the optimal level Directions to Meet Your Goals PLEASE STOP SMOKING PLEASE KEEP YOUR SCHEDULED APPOINTMENT WITH DR. GONZALEZ at [facility] ON 03/24/17 at 1PM Take your medications as prescribed Follow your dietary instruction Follow activity as directed Keep your appointments as scheduled Take your immunizations and boosters as scheduled If your symptoms worsen call your PCP, if no PCP go to Urgent Care Center or Emergency Room Smoking is Dangerous to Your Health. Avoid second hand smoke Call the 24-hour hour crisis hotline for domestic abuse at Terri Yung Feb 25, 2017 11:38
--- NOTE | 2017-02-25 11:43 | HHI.DS ---
Discharge Summary Admission Date Feb 10, 2017 at 17:45 Discharge Date: Feb 25, 2017 Admitting Diagnosis SAH (1) Subarachnoid hemorrhage ICD Code: I60.9 Diagnosis: Principal (2) Respiratory failure ICD Code: J96.90 (3) Dysphagia ICD Code: R13.10 (4) C. difficile diarrhea ICD Code: A04.7 (5) Hypertension ICD Code: I10 (6) Cognitive and behavioral changes ICD Code: R41.89 Procedures Status post craniotomy and clipping of complex aneurysm and placement of lumbar drain 01/24/17 Brief History - From Admission 51 yo WM with PMH of HTN, Tobacco abuse, who originally presented to [facility] [place] 01/22/17 with a ruptured 3 mm Acom aneurysm, Randall Franks grade 1-2. . Angiogram was performed but was not amenable to endovascular coil. Patient was transferred to [facility]. He underwent craniotomy with clipping of complex aneurysm and placement of lumbar drain 01/24/[address] Aviles. He developed diarrhea and C diff was positive 01/26. He underwent 10 day course of flagyl 500 q8 po, completed 02/06/17. He underwent tracheostomy 02/04/17 with 6.0 cuffed Shiley. He underwent PEG 02/03/[address] Macahdo and Ade. He is tolerating T piece. His sister is at bedside and states he was not using Passy-radha yet. He is now transferred back to [facility]. He is tachypneic with rhonchorous respirations, needs to be suctioned. Temp max 99.1. He is able to nod yes/no in response to questions and ROS is otherwise negative. Imaging Last Impressions Abdomen X-Ray 02/11/17 0600 Signed Impressions: Service Date/Time: Thursday, February 11, 2017 06:19 - CONCLUSION: No acute disease. Krystyna Kohli MD CT Angiography 02/11/17 0000 Signed Impressions: Service Date/Time: Saturday, February 11, 2017 15:04 - CONCLUSION: 1. Limited examination with visualization of the pulmonary arteries to the very proximal segmental level. No evidence for pulmonary embolism to the very proximal segmental level. 2. Mild bilateral posterior lower lobe airspace consolidation and associated trace bilateral pleural effusions. Differential considerations include aspiration versus atelectasis. Antoine Smuner MD Chest X-Ray 02/10/17 0000 Signed Impressions: Service Date/Time: Friday, February 10, 2017 19:32 - CONCLUSION: Patchy left lower lobe infiltrates. Segundo Hogan MD PE at Discharge GENERAL: This is a well-nourished, well-developed patient, in no apparent distress. Awake and alert. Mother is at the bedside. SKIN: Warm and dry. HEENT: Normocephalic. Incision site intact. Pupils equal and round. Nose without bleeding. Airway patent. NECK: Tracheostomy site closed. Scar tissue palpable. CARDIOVASCULAR: Regular rate and rhythm without murmurs, gallops, or rubs. RESPIRATORY: Clear to auscultation. Breath sounds equal bilaterally. No wheezes , rales, or rhonchi. GASTROINTESTINAL: Abdomen soft, non-tender, nondistended. Bowel Sounds normoactive x4. PEG removed. Previous site closed with mild erythema. MUSCULOSKELETAL: Extremities without clubbing, cyanosis, or edema. NEUROLOGICAL: Awake and alert. Periods of confusion. Oriented to self. Moves all extremities. Normal speech. Pt update on day of discharge Patient seen and examined. Reports single episode of diarrhea earlier today. Denies any fever or chills. Denies any nausea, vomiting or abdominal pain. Denies any chest pain or SOB. Hospital Course 51-year-old white male admitted presented to [facility] 01/22/17 with a ruptured 3 mm Acom aneurysm, not amenable to coiling, was managed medically by neurosurgery. Patient was transferred to [facility]. He underwent craniotomy with clipping of complex aneurysm and placement of lumbar drain 01/24/[address] Aviles. He developed diarrhea and C diff was positive 01/26. He underwent 10 day course of flagyl 500 q8 po, completed 02/06/17. He underwent tracheostomy with 6.0 cuffed Shiley. He underwent PEG 02/03/[address] Machado and Ade. Transferred back to [facility]. Has weaned down on his O2 to RA, underwent tx for C.diff. Progressed with speech therapy to regular diet and PEG tube was removed. Patient stable from pulmonary standpoint. Patient discharged to home with [facility]. Pt Condition on Discharge: Stable Discharge Disposition: Disch w/ Home Health Serv Discharge Time: > 30 minutes Discharge Instructions DIET: Follow Instructions for: As Tolerated, No Restrictions Speech Therapy-Diet Recommends: Regular Activities you can perform: Regular-No Restrictions, See Additionl Instruction (Patient will require supervision while at home. Fall risk. Impulsivity. No driving.) Other Activity Instructions: Will need supervision at home Follow up Referrals: Neurosurgery - 03/24/[address] Aviles of [facility] PCP Follow-up - 03/04/17 New Medications: Lactobacillus Acidophilus (Acidophilus/l-Sporogenes) 1 Tab Tab 1 TAB PO TID C diff colitis #90 TAB Lisinopril (Lisinopril) 5 Mg Tab 5 MG PO DAILY Blood pressure management #30 TAB Metoprolol Tartrate (Metoprolol Tartrate) 25 Mg Tab 12.5 MG PO Q12HR tachycardia #60 TAB Vancomycin Inj (Vancomycin Inj) 500 Mg Inj 125 MG PO QID C diff colitis Days 2 INJECTION Terri Yung Feb 25, 2017 11:43
[2017-02-25 12:00] VITALS: BP 125/73; PULSE 100; RESP 18; TEMP 98; O2SAT 94
--- NOTE | 2017-02-25 12:13 | HHI.FF ---
Face to Face Verification Diagnosis: (1) Subarachnoid hemorrhage (2) Dysphagia (3) Respiratory failure (4) Hypertension (5) C. difficile diarrhea (6) Cognitive and behavioral changes Home Health Nursing Order: Medical education Signs/symptoms of disease process Medication education-adverse effect Nursing assessment with vital signs I have seen patient Yasir Black on 02/25/17. My clinical findings support the need for the requested home health care services because: Ltd mobility - disease progression Deconditioned w/ increased weakness Limited ability to care for self Impaired cognition/judgement High risk of falls I certify that my clinical findings support that this patient is homebound because: Impaired cognitive ability/safety Unsteady gait/balance Unsafe to leave home unassisted Unable to use public transportation Terri Yung Feb 25, 2017 12:13
--- NOTE | 2017-03-16 06:43 | PQ ---
Physician Query Response Document PATIENT: CHRISTOPHER STOCK : 1965 ADMIT DATE: 02/10/2017 5:45 PM DISCH DATE: 02/25/2017 1:25 PM RESPONDING PROVIDER #: guero QUERY TEXT: Clinical Validity Additional clinical indicators are required to support your documented diagnosis of _Resp iratory failure___ Please respond and also state in your next progress note whether: -- Condition exists and also please provide clinical indicators to support the diagnosis -- Condition does not exist and also please provide amended documentation in the medical record to cl jose -- Unable to provide additional clarity regarding the diagnosis -- Other, please specify The patient's Clinical Indicators include: PER PULMONARY respiratory failure status post tracheostomy tube placement TRACHEOSTOMY STATUS RR 22 TACHYPNEIC AND RHONCHORUS RESPIRATION REQ SUCTIONING 02/11 CT BILATERAL LOWER LOBE AIRSPACE CONSOLIDATION AND BILATERAL PLERUAL EFFUSIONS 02/10 CXR PATCHY IFILTRATES IN MEDICAL LEFT LOWER LUNG Query created by: Rochelle Cross on 02/13/2017 12:04 PM RESPONSE TEXT: Patient previously had respiratory failure and had undergone tracheostomy. No longer respiratory fail ure this admission. Electronically signed by: Vaishnavi Lang MD 03/16/2017 6:39 AM
== END 2017-02-25 13:25 | disposition home health service (06) | DRG 64 ==
LOC: N05A 17:45 → N05B 02-20 14:52
PROVIDERS: ADMIT Internal Medicine; ATTEND Internal Medicine
DX: I60.2 Nontraumatic subarachnoid hemorrhage from anterior communicating artery (principal); J96.90 Respiratory failure, unspecified, unspecified whether with hypoxia or hypercapnia; Z93.0 Tracheostomy status; A04.7 Enterocolitis due to Clostridium difficile; E87.0 Hyperosmolality and hypernatremia; E86.0 Dehydration; Z93.1 Gastrostomy status; Z87.891 Personal history of nicotine dependence; R47.02 Dysphasia; G47.00 Insomnia, unspecified
CPT/HCPCS: 71010; 71275; 74000; 76937; 80048; 80053; 82140; 82948; 83690; 83735; 84100; 85025; 87040; 87070; 87077; 87186; 87205; 87641; 94640; 94664; 94762; A7520; C9113; J1644; J1815; J2405; J2765; J3480; J7050; Q9967